=== PATIENT | female | born 1940 | race Caucasian/White ===

== ENCOUNTER → 2016-07-06 | Outpatient (CLI) | payer BC ==
[~2016-07-06] MED LIST: ASPI-589 PO; HYDR25TA5 PO; LISI10TA PO; MISCTAB78 PO; NEPA0.6D OPR; OMEGCAP2 PO; PRED1SUS3 OPR; SIMV-151 PO
[2016-07-06 12:45] LABS: BASO % 0.5 %; BASO ABS # 0.04 K/uL (0-0.2); COMPLETE YES; EOS % 6.4 %; HEMATOCRIT 41.6 % (37-47); IG% 0.1 %; LYMPH % 29.3 %; LYMPH ABS # 2.58 K/uL (1.2-3.4); MEAN CELL VOLUME 89.3 fL (80-100); MEAN CORPUSCULAR HEMOGLOBIN 30.9 pg (25-34); MEAN CORPUSCULAR HGB CONC 34.6 g/dl (32-36); MEAN PLATELET VOLUME 12.7 fL (7.4-10.4); MONO % 9.6 %; NEUT % 54.1 %; PLATELET COUNT 290 K/uL (130-400); RED BLOOD COUNT 4.66 M/uL (4.2-5.4); WHITE BLOOD COUNT 8.81 K/uL (4.8-10.8)
[2016-07-06 13:02] LABS: ESTIMATED AVERAGE GLUCOSE 120 mg/dl; HA1C FLAG Normal (Normal)
[2016-07-06 13:05] LABS: ALT/SGPT 30 U/L (12-78); AST/SGOT 21 U/L (15-37); BLOOD UREA NITROGEN 19 mg/dl (7-18); BUN/CREATININE RATIO 17.3 (10-20); CALCIUM 9.2 mg/dl (8.5-10.1); CARBON DIOXIDE 31 mmol/L (21-32); CHLORIDE 101 mmol/L (98-107); GLUCOSE 112 mg/dl (70-99); HDL CHOLESTEROL 68 mg/dl; MAGNESIUM 1.8 mg/dl (1.8-2.4); POTASSIUM 3.8 mmol/L (3.5-5.1); SODIUM 140 mmol/L (136-145); TRIGLYCERIDES 109 mg/dl (0-150); VERY LOW DENSITY LIPOPROT CALC 22 mg/dl
[2016-07-06 13:14] LABS: ALB/GLOB RATIO 1.1 (0.9-2); ALKALINE PHOSPHATASE 76 U/L (45-117); CHOLESTEROL 153 mg/dl (0-200); CHOLESTEROL/HDL RATIO 2.3
== END | disposition home or self-care (01) ==
LOC: C.LABSPEC 12:23
PROVIDERS: ATTEND Internal Medicine
DX: I10 Essential (primary) hypertension (principal); R73.9 Hyperglycemia, unspecified; E78.5 Hyperlipidemia, unspecified; R00.2 Palpitations

== ENCOUNTER → 2016-07-11 | Outpatient (CLI) | payer BC | END | disposition home or self-care (01) | LOC: C.LABSPEC 12:28 | PROVIDERS: ATTEND Internal Medicine | DX: Z12.11 Encounter for screening for malignant neoplasm of colon (principal) ==

== ENCOUNTER → 2016-11-15 | Outpatient (CLI) | payer BC ==
--- NOTE | 2016-11-16 12:30 | MAMMOGRAPHY REPORT ---
BILATERAL DIGITAL SCREENING MAMMOGRAM WITH CAD: 11/15/2016 CLINICAL HISTORY: Routine screening. TECHNIQUE: Current study was also evaluated with a Computer Aided Detection (CAD) system. Bilateral CC and MLO views were obtained. COMPARISON: Comparison is made to exams dated: 10/14/2015 mammogram, 10/13/2014 mammogram, 10/14/2013 m ammogram, 10/09/2012 mammogram, 09/18/2011 mammogram, and 09/12/2010 mammogram - [facility] nter. BREAST COMPOSITION: There are scattered areas of fibroglandular density in both breasts. FINDINGS: No suspicious masses, calcifications, or areas of architectural distortion are noted in ei ther breast. There has been no significant interval change compared to prior exams. Benign intramamm blair lymph nodes are again seen within bilateral upper outer quadrants. 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 IMPRESSION: ACR BI-RADS CATEGORY 2: BENIGN There is no mammographic evidence of malignancy. A 1 year screening mammogram is recommended. The pa tient will receive written notification of the results. Approximately 10% of breast cancers are not detected with mammography. A negative mammographic report should not delay biopsy if a clinically suggestive mass is present. Sun Shahid M.D. /:11/15/2016 15:00:07 [employer]: Carleen MENARD)(Dave), [facility] letter sent: Normal 1/2 BI-RADS Code: ACR BI-RADS Category 2: Benign
== END | disposition home or self-care (01) ==
LOC: C.MAMM 14:14
PROVIDERS: ATTEND Internal Medicine
DX: Z12.31 Encounter for screening mammogram for malignant neoplasm of breast (principal)

== ENCOUNTER → 2017-01-24 | Outpatient (CLI) | payer BC ==
[2017-01-24 13:43] LABS: ESTIMATED AVERAGE GLUCOSE 128 mg/dl; HA1C FLAG Normal (Normal)
[2017-01-24 14:09] LABS: BLOOD UREA NITROGEN 16 mg/dl (7-18); BUN/CREATININE RATIO 14.5 (10-20); CALCIUM 9.3 mg/dl (8.5-10.1); CARBON DIOXIDE 35 mmol/L (21-32); CHLORIDE 94 mmol/L (98-107); GLUCOSE 123 mg/dl (70-99); POTASSIUM 2.7 mmol/L (3.5-5.1); SODIUM 135 mmol/L (136-145)
[2017-01-24 14:12] LABS: CHOLESTEROL 133 mg/dl (0-200); HDL CHOLESTEROL 68 mg/dl; TRIGLYCERIDES 88 mg/dl (0-150); VERY LOW DENSITY LIPOPROT CALC 18 mg/dl
== END | disposition home or self-care (01) ==
LOC: C.LABSPEC 12:44
PROVIDERS: ATTEND Internal Medicine
DX: R73.9 Hyperglycemia, unspecified (principal); I10 Essential (primary) hypertension; E78.5 Hyperlipidemia, unspecified

== ENCOUNTER → 2017-01-28 | Outpatient (CLI) | payer BC ==
[2017-01-28 13:49] LABS: BLOOD UREA NITROGEN 12 mg/dl (7-18); BUN/CREATININE RATIO 11.5 (10-20); CALCIUM 9.6 mg/dl (8.5-10.1); CARBON DIOXIDE 27 mmol/L (21-32); CHLORIDE 102 mmol/L (98-107); GLUCOSE 117 mg/dl (70-99); POTASSIUM 4.7 mmol/L (3.5-5.1); SODIUM 135 mmol/L (136-145)
== END | disposition home or self-care (01) ==
LOC: C.LABSPEC 12:46
PROVIDERS: ATTEND Internal Medicine
DX: E87.6 Hypokalemia (principal)

== ENCOUNTER → 2017-05-31 | Outpatient (CLI) | payer BC ==
[2017-05-31 14:38] LABS: ALBUMIN 3.7 gm/dl (3.4-5.0); ALT/SGPT 29 U/L (12-78); AST/SGOT 22 U/L (15-37); BLOOD UREA NITROGEN 17 mg/dl (7-18); CALCIUM 9.4 mg/dl (8.5-10.1); CARBON DIOXIDE 29 mmol/L (21-32); CHOLESTEROL 180 mg/dl (0-200); CREATININE 0.97 mg/dl (0.60-1.20); GLUCOSE 123 mg/dl (70-99); POTASSIUM 3.5 mmol/L (3.5-5.1); SODIUM 139 mmol/L (136-145)
[2017-05-31 14:41] LABS: ALKALINE PHOSPHATASE 73 U/L (45-117); LDL CHOLESTEROL (DIRECT) 100 mg/dl; TOTAL PROTEIN 7.3 gm/dl (6.4-8.2)
== END | disposition home or self-care (01) ==
LOC: C.LABSPEC 12:17
PROVIDERS: ATTEND Internal Medicine
DX: I10 Essential (primary) hypertension (principal); E78.5 Hyperlipidemia, unspecified; R73.9 Hyperglycemia, unspecified

== ENCOUNTER → 2017-09-10 | Outpatient (CLI) | payer BC ==
--- NOTE | 2017-09-10 15:09 | DIAGNOSTIC IMAGING REPORT ---
L SHOULDER MIN 2 VIEWS ROUTINE CLINICAL HISTORY: Fall. Left shoulder pain. COMPARISON: Left shoulder radiographs December 09, 2007. FINDINGS: Note is made of an acute nondisplaced oblique fracture of the left humeral neck that extends into the left humeral head and involves the greater tuberosity. Severe osteoarthrosis of the left glenohumeral joint is noted. Alignment of the left acromioclavicular and glenohumeral joints is anatomic. IMPRESSION: 1. Acute nondisplaced left humeral neck fracture that extends into the humeral head and involves the greater tuberosity. 2. Severe osteoarthritis of the left glenohumeral joint. Electronically signed by: Gino Barrera M.D. 09/10/2017 3:08 PM Dictated Date/Time: 09/10/2017 3:06 PM
== END | disposition home or self-care (01) ==
LOC: C.RAD 14:36
PROVIDERS: ATTEND Internal Medicine
DX: S42.255A Nondisplaced fracture of greater tuberosity of left humerus, initial encounter for closed fracture (principal); S42.295A Other nondisplaced fracture of upper end of left humerus, initial encounter for closed fracture; S49.92XA Unspecified injury of left shoulder and upper arm, initial encounter; M19.012 Primary osteoarthritis, left shoulder; W19.XXXA Unspecified fall, initial encounter

== ENCOUNTER → 2017-12-16 | Outpatient (CLI) | payer BC ==
--- NOTE | 2017-12-16 11:58 | DIAGNOSTIC IMAGING REPORT ---
CHEST 2 VIEWS ROUTINE HISTORY: 77 years-old Female COUGH acute cough with recent travel COMPARISON: None available TECHNIQUE: PA and lateral views of the chest FINDINGS: Cardiac mediastinal and hilar silhouettes are within normal limits. Mild right hemidiaphragmatic elevation. Linear subsegmental opacity of the inferior segment lingular suggests atelectasis/scarring. There is no pneumothorax, pleural effusion or overt pulmonary edema. The bones of the chest appear grossly intact. There are degenerative changes of the shoulders and spine. Surgical clips of the upper abdomen suggest prior cholecystectomy. IMPRESSION: 1. No acute process. 2. Linear subsegmental lingular opacities suggest atelectasis/scarring. The above report was generated using voice recognition software. It may contain grammatical, syntax or spelling errors. Electronically signed by: Héctor To M.D. 12/16/2017 11:57 AM Dictated Date/Time: 12/16/2017 11:55 AM
== END | disposition home or self-care (01) ==
LOC: C.RAD 11:25
PROVIDERS: ATTEND Internal Medicine
DX: R05 Cough (principal); R91.8 Other nonspecific abnormal finding of lung field

== ENCOUNTER 2021-12-03 18:42 | Inpatient (IN) ==
--- NOTE | 2021-12-03 19:04 | Emergency Department Note ---
Impression & Plan Cerebrovascular accident, Aphasia ED Provider Note Provider: José Antonio Diaz MD DATE OF SERVICE: 12/03/2021 CHIEF COMPLAINT: Confusion, speech issues HISTORY OF PRESENT ILLNESS: Patient is a 81-year-old female history of hypertension and by report of daughter bradycardia presenting via private vehicle today after being found by her daughter around 6:00pm confused. Daughter states she had talked to her mother on the phone around 430pm this afternoon and she seemed fine. Came home at 6 PM and found the patient to be confused and not remembering who she was not addressing her by her van cash's name or her other daughter's name. Patient did not seem to have any significant facial droop or slurred speech. Patient otherwise was acting normal again at 430pm. Patient is on aspirin. Asking the patient herself, she is unable to tell me what year it is and can regulates and says random words. She is unable to identify a pen or a watch for me and just says random words. She does follow simple commands however denies change in sensation to the face or extremities. No trauma is reported. Daughter reports she was able to ambulate to the car. REVIEW OF SYSTEMS: A total of 10 review of systems was obtained and negative except as stated above in the HPI. PAST MEDICAL HISTORY: As noted above MEDICATIONS: Reviewed home medications includes aspirin SOCIAL HISTORY: No smoking history reported PHYSICAL EXAM: GENERAL: alert in no acute distress on stretcher difficulty answering orientation questions. Head: normocephalic and atraumatic EYES: No injection, discharge or icterus. PERRL, EOMI. NECK: Trachea midline. Supple. ENT: Mucous membranes pink and moist. Pharynx without erythema or exudate. LUNGS: Airway patent. No retractions. Breath sounds clear with good air entry bilaterally. HEART: Regular rate and rhythm. No chest wall tenderness ABDOMEN: Soft and non-tender, without guarding or rebound. SKIN: Acyanotic, warm, dry, without rashes EXTREMITIES: Without swelling, tenderness or deformity NEUROLOGICAL: No focal deficits. No facial droop or slurred speech. Tongue midline. Significant aphasia but not dysarthric. Normal strength and tone in the extremities. Sensation to gross touch normal. EK bpm sinus rhythm first-degree AV block with PVC noted. No acute ST segment elevation or depression noted. QTc 492. CONTINUOUS CARDIAC MONITORING: was ordered and showed a heart rate of 60s-70s bpm in sinus rhythm first-degree AV block occasional PVCs Patient's laboratory studies and imaging reviewed. Differential includes Infection, dehydration, metabolic abnormality, hypo/hyperglycemia, electrolyte disturbance, anemia, hypoxia, cardiac sources, intracerebral event, toxicologic, neurologic, as well as other pathologies. IMPRESSION/MEDICAL DECISION MAKING: Patient with appears to be a sudden change in mentation with confusion and some aphasia. No trauma reported or recent illness otherwise. Afebrile upon arrival. Able to move her extremities well but again answering orientation questions is difficult. Made a stroke alert and sent for CT scans. Not on high risk anticoagulants but is on aspirin. Last known well talking with the daughter on the phone was around 4:30 PM this afternoon. Discussed with stroke neurology at [facility] who evaluate the patient as well. They and myself discussed risk and benefit with the patient and daughter at bedside. Stroke neurologist recommended giving the medication for thrombolytics given the disabling symptoms after personally reviewing the CT and knowing of the CT report. Given concern for possible stroke risk and benefits (including bleeding) proceeded with thrombolytic therapy and bedside discussion predominantly with the daughter as the patient is hard to have a conversation with given her deficits. No evidence of large vessel occlusion on imaging. CT of the head without acute bleed. Basic blood work was obtained without severe abnormalities noted. Will need close monitoring postthrombolytic therapy and the hospitalist to be contacted for ICU care. Given magnesium and IV fluids per stroke direction from [facility]. Patient without s ignificant clinical worsening while here but no significant improvement noted. Blood pressure bit elevated and given some labetalol. To ICU. DIAGNOSIS: Stroke, thrombolytic therapy, aphasia DISPOSITION: Hospitalist will evaluate Patient was agreeable with this plan. Critical Care I have personally spent 34 minutes of critical care time in the direct management of this patient. This includes bedside care, interpretation of diagnostic studies, and testing, discussion with consultants, patient, and family members, and other required patient management activities. These 34 minutes is in excess of all separately billable procedures. Past Med/Surg History Social History Smoking Status: Never smoker Hx Alcohol Use: No Hx Substance Use: No Preferred Language: Dominican Communication Ability: Impaired Communication Ability Comment: Aphasia at this time Engineering Technical Analyst Required: No Beliefs That Will Affect Care: None Current Living Situation: Alone Current Living Situation Comment: pt lives in apartment at daughter's home Other Information That Helps Us Care for You: No Feels Safe at Home: Yes Safety Concerns: Feels Safe At This Time Assistive Devices: Glasses Allergies Allergies Allergy/AdvReac Type Severity Reaction Status Date / Time methylprednisolone Allergy Intermediate USED WHEN Verified 12/03/21 19:24 HAD POSION RAZ AND BROKE OUT IN HIVES Home Meds Home Medications Medication Instructions Recorded Confirmed ascorbic acid (vitamin C) 1,000 mg 1 g PO DAILY 12/03/21 12/03/21 tablet (Vitamin C) aspirin 325 mg tablet 162.5 mg PO DAILY 12/03/21 12/03/21 carboxymethylcellulose sodium 0.5 1 drp ophthalmic (eye) BID PRN Dry 12/03/21 12/03/21 % eye drops (Refresh Tears) Eyes cholecalciferol (vitamin D3) 25 25 mcg PO DAILY 12/03/21 12/03/21 mcg (1,000 unit) capsule (Vitamin D3) glucosamine 750 [id number] 1 tab PO BID 12/03/21 12/03/21 no1 644 mg-C 30 mg-omayra 1 mg tablet (Osteo Bi-Flex Triple Strength) hydrochlorothiazide 25 mg tablet 25 mg PO DAILY 12/03/21 12/03/21 latanoprost 0.005 % eye drops 1 drp ophthalmic (eye) DAILY 12/03/21 12/03/21 losartan 50 mg tablet 50 mg PO DAILY 12/03/21 12/03/21 magnesium oxide 400 mg PO DAILY 12/03/21 12/03/21 metoprolol tartrate 25 mg tablet 12.5 mg PO BID 12/03/21 12/03/21 omega-3 fatty acids 1,000 mg 1,000 mg PO DAILY 12/03/21 12/03/21 capsule potassium chloride 10 mEq 20 meq PO BID 12/03/21 12/03/21 capsule,extended release simvastatin 20 mg tablet 20 mg PO DAILY 12/03/21 12/03/21 Results & Data (ED) Vital Signs Vital Signs - 24 hr 12/03/21 18:47 12/03/21 19:12 12/03/21 19:13 Temperature 36.4 C L Temperature Source Temporal Artery Scan Pulse Rate 73 Pulse Rate [Finger] 70 Pulse Rate from SpO2 Sensor Pulse Rhythm Regular Pulse Strength Normal Respiratory Rate 16 23 Respiratory Depth Normal Blood Pressure 197/92 H Blood Pressure [Right Arm] 179/85 H Blood Pressure Mean 127 Blood Pressure Mean [Right Arm] 116 Pulse Oximetry 99 98 98 Oxygen Delivery Method Room Air Room Air Room Air Sepsis Recent Fever Within 48 Hours No Sepsis New/Unexplained Change in Mental Status N/A Sepsis Action Taken by Nursing No Action Required 12/03/21 19:17 12/03/21 19:32 12/03/21 19:44 Temperature Temperature Source Pulse Rate Pulse Rate [Finger] 72 68 70 Pulse Rate from SpO2 Sensor Pulse Rhythm Pulse Strength Respiratory Rate 20 18 18 Respiratory Depth Blood Pressure Blood Pressure [Right Arm] 166/88 H 171/77 H 160/86 H Blood Pressure Mean Blood Pressure Mean [Right Arm] 114 108 110 Pulse Oximetry 97 98 99 Oxygen Delivery Method Room Air Room Air Room Air Sepsis Recent Fever Within 48 Hours Sepsis New/Unexplained Change in Mental Status Sepsis Action Taken by Nursing 12/03/21 20:00 12/03/21 20:15 12/03/21 20:30 Temperature Temperature Source Pulse Rate Pulse Rate [Finger] 67 67 70 Pulse Rate from SpO2 Sensor Pulse Rhythm Pulse Strength Respiratory Rate 18 18 16 Respiratory Depth Blood Pressure Blood Pressure [Right Arm] 142/93 H 167/78 H 173/79 H Blood Pressure Mean Blood Pressure Mean [Right Arm] 109 107 110 Pulse Oximetry 97 97 97 Oxygen Delivery Method Room Air Room Air Room Air Sepsis Recent Fever Within 48 Hours Sepsis New/Unexplained Change in Mental Status Sepsis Action Taken by Nursing 12/03/21 20:45 12/03/21 21:00 12/03/21 21:15 Temperature Temperature Source Pulse Rate Pulse Rate [Finger] 68 69 68 Pulse Rate from SpO2 Sensor Pulse Rhythm Pulse Strength Respiratory Rate 18 16 18 Respiratory Depth Blood Pressure Blood Pressure [Right Arm] 170/99 H 179/105 H 155/75 H Blood Pressure Mean Blood Pressure Mean [Right Arm] 122 129 101 Pulse Oximetry 97 99 97 Oxygen Delivery Method Room Air Room Air Room Air Sepsis Recent Fever Within 48 Hours Sepsis New/Unexplained Change in Mental Status Sepsis Action Taken by Nursing 12/03/21 21:00 12/03/21 21:01 12/03/21 21:01 Temperature Temperature Source Pulse Rate 70 67 Pulse Rate [Finger] Pulse Rate from SpO2 Sensor 66 68 Pulse Rhythm Pulse Strength Respiratory Rate 19 15 Respiratory Depth Blood Pressure 179/105 H Blood Pressure [Right Arm] Blood Pressure Mean 129 Blood Pressure Mean [Right Arm] Pulse Oximetry 98 98 Oxygen Delivery Method Sepsis Recent Fever Within 48 Hours Sepsis New/Unexplained Change in Mental Status Sepsis Action Taken by Nursing 12/03/21 21:10 12/03/21 21:16 12/03/21 21:16 Temperature Temperature Source Pulse Rate 67 68 Pulse Rate [Finger] Pulse Rate from SpO2 Sensor 67 69 Pulse Rhythm Pulse Strength Respiratory Rate 17 17 Respiratory Depth Blood Pressure 155/75 H Blood Pressure [Right Arm] Blood Pressure Mean 101 Blood Pressure Mean [Right Arm] Pulse Oximetry 95 97 Oxygen Delivery Method Sepsis Recent Fever Within 48 Hours Sepsis New/Unexplained Change in Mental Status Sepsis Action Taken by Nursing Laboratory Data Result diagrams: 12/03/21 19:00 12/03/21 23:00 Lab Results 12/03/21 12/03/21 12/03/21 Range/Units 18:55 19:00 19:00 WBC 10.01 (4.8-10.8) K/ul RBC 4.33 (3.93-5.22) M/uL Hgb 13.4 (12.0-16.0) g/dl Hct 40.0 (34.1-44.9) % MCV 92.4 (80.0-100.0) fL MCH 30.9 (25.0-34.0) pg MCHC 33.5 (32.0-36.0) g/dL RDW Std Deviation 42.1 (36.4-46.3) fL RDW Coeff of Ralph 12.4 (11.5-14.5) % Plt Count 306 (130-400) K/uL MPV 12.3 (9.4-12.3) fL Immature Gran % (Auto) 0.3 % Neut % (Auto) 54.5 % Lymph % (Auto) 34.7 % Cassia % (Auto) 6.8 % Eos % (Auto) 2.9 % Baso % (Auto) 0.8 % Neut # (Auto) 5.46 (1.4-6.5) K/uL Lymph # (Auto) 3.47 H (1.2-3.4) K/uL Cassia # (Auto) 0.68 (0.24-0.82) K/uL Eos # (Auto) 0.29 (0-0.50) K/uL Baso # (Auto) 0.08 (0-0.2) K/uL Immature Gran # (Auto) 0.03 H (0.00-0.02) K/uL PT Cancelled INR Cancelled APTT Cancelled PTT Ratio Cancelled Sodium (136-145) mmol/L Potassium (3.5-5.1) mmol/L Chloride (98-107) mmol/L Carbon Dioxide (21-32) mmol/L Anion Gap (3-11) BUN (6-23) mg/dl Creatinine (0.6-1.2) mg/dl Est Cr Clr Drug Dosing Est GFR ( Amer) ml/min Est GFR (Non-Af Amer) ml/min BUN/Creatinine Ratio (10-20) Glucose (70-99(Fasting)) mg/dl POC Glucose 125 H (70-99) mg/dl Calcium (8.5-10.1) mg/dl Magnesium (1.7-2.4) mg/dl Total Bilirubin (0.2-1.0) mg/dl AST (13-39) U/L ALT (7-52) U/L Alkaline Phosphatase (34-104) U/L Troponin I High Sens (0-14) pg/ml Total Protein (6.0-8.3) gm/dl Albumin (3.4-5.0) gm/dl Globulin (2.5-4.0) gm/dl Albumin/Globulin Ratio (0.9-2) Urine Color Urine Appearance (Clear) Urine pH (4.5-7.5) Ur Specific Boomer (1.000-1.030) Urine Protein (Negative) Urine Glucose (UA) (Negative) Urine Ketones (Negative) Urine Blood (Negative) Urine Nitrite (Negative) Urine Bilirubin (Negative) Urine Urobilinogen (Negative) Ur Leukocyte Esterase (Negative) Urine WBC (Auto) (0-5) /hpf Urine RBC (Auto) (0-4) /hpf U Hyaline Cast (Auto) (0-5) /lpf U Epithel Cells (Auto) (0-5) /lpf Urine Bacteria (Auto) (Negative) SARS-CoV-2, RNA, NAAT (NEGATIVE) 12/03/21 12/03/21 12/03/21 Range/Units 19:00 19:15 19:37 WBC (4.8-10.8) K/ul RBC (3.93-5.22) M/uL Hgb (12.0-16.0) g/dl Hct (34.1-44.9) % MCV (80.0-100.0) fL MCH (25.0-34.0) pg MCHC (32.0-36.0) g/dL RDW Std Deviation (36.4-46.3) fL RDW Coeff of Ralph (11.5-14.5) % Plt Count (130-400) K/uL MPV (9.4-12.3) fL Immature Gran % (Auto) % Neut % (Auto) % Lymph % (Auto) % Cassia % (Auto) % Eos % (Auto) % Baso % (Auto) % Neut # (Auto) (1.4-6.5) K/uL Lymph # (Auto) (1.2-3.4) K/uL Cassia # (Auto) (0.24-0.82) K/uL Eos # (Auto) (0-0.50) K/uL Baso # (Auto) (0-0.2) K/uL Immature Gran # (Auto) (0.00-0.02) K/uL PT Cancelled INR Cancelled APTT Cancelled PTT Ratio Cancelled Sodium 138 (136-145) mmol/L Potassium 3.6 (3.5-5.1) mmol/L Chloride 102 (98-107) mmol/L Carbon Dioxide 28 (21-32) mmol/L Anion Gap 8 (3-11) BUN 29 H (6-23) mg/dl Creatinine 1.20 (0.6-1.2) mg/dl Est Cr Clr Drug Dosing Not Reportable Est GFR ( Amer) 49.1 ml/min Est GFR (Non-Af Amer) 42.4 ml/min BUN/Creatinine Ratio 24.2 H (10-20) Glucose 146 H (70-99(Fasting)) mg/dl POC Glucose (70-99) mg/dl Calcium 9.4 (8.5-10.1) mg/dl Magnesium 2.1 (1.7-2.4) mg/dl Total Bilirubin 0.6 (0.2-1.0) mg/dl AST 16 (13-39) U/L ALT 11 (7-52) U/L Alkaline Phosphatase 71 (34-104) U/L Troponin I High Sens 10.0 (0-14) pg/ml Total Protein 7.5 (6.0-8.3) gm/dl Albumin 4.2 (3.4-5.0) gm/dl Globulin 3.3 (2.5-4.0) gm/dl Albumin/Globulin Ratio 1.3 (0.9-2) Urine Color Urine Appearance (Clear) Urine pH (4.5-7.5) Ur Specific Boomer (1.000-1.030) Urine Protein (Negative) Urine Glucose (UA) (Negative) Urine Ketones (Negative) Urine Blood (Negative) Urine Nitrite (Negative) Urine Bilirubin (Negative) Urine Urobilinogen (Negative) Ur Leukocyte Esterase (Negative) Urine WBC (Auto) (0-5) /hpf Urine RBC (Auto) (0-4) /hpf U Hyaline Cast (Auto) (0-5) /lpf U Epithel Cells (Auto) (0-5) /lpf Urine Bacteria (Auto) (Negative) SARS-CoV-2, RNA, NAAT NEGATIVE (NEGATIVE) 12/03/21 12/03/21 Range/Units 19:40 20:35 WBC (4.8-10.8) K/ul RBC (3.93-5.22) M/uL Hgb (12.0-16.0) g/dl Hct (34.1-44.9) % MCV (80.0-100.0) fL MCH (25.0-34.0) pg MCHC (32.0-36.0) g/dL RDW Std Deviation (36.4-46.3) fL RDW Coeff of Ralph (11.5-14.5) % Plt Count (130-400) K/uL MPV (9.4-12.3) fL Immature Gran % (Auto) % Neut % (Auto) % Lymph % (Auto) % Cassia % (Auto) % Eos % (Auto) % Baso % (Auto) % Neut # (Auto) (1.4-6.5) K/uL Lymph # (Auto) (1.2-3.4) K/uL Cassia # (Auto) (0.24-0.82) K/uL Eos # (Auto) (0-0.50) K/uL Baso # (Auto) (0-0.2) K/uL Immature Gran # (Auto) (0.00-0.02) K/uL PT 10.4 INR 1.0 APTT 23.4 PTT Ratio 0.9 Sodium (136-145) mmol/L Potassium (3.5-5.1) mmol/L Chloride (98-107) mmol/L Carbon Dioxide (21-32) mmol/L Anion Gap (3-11) BUN (6-23) mg/dl Creatinine (0.6-1.2) mg/dl Est Cr Clr Drug Dosing Est GFR ( Amer) ml/min Est GFR (Non-Af Amer) ml/min BUN/Creatinine Ratio (10-20) Glucose (70-99(Fasting)) mg/dl POC Glucose (70-99) mg/dl Calcium (8.5-10.1) mg/dl Magnesium (1.7-2.4) mg/dl Total Bilirubin (0.2-1.0) mg/dl AST (13-39) U/L ALT (7-52) U/L Alkaline Phosphatase (34-104) U/L Troponin I High Sens (0-14) pg/ml Total Protein (6.0-8.3) gm/dl Albumin (3.4-5.0) gm/dl Globulin (2.5-4.0) gm/dl Albumin/Globulin Ratio (0.9-2) Urine Color Yellow Urine Appearance Clear (Clear) Urine pH 5.0 (4.5-7.5) Ur Specific Boomer 1.040 H (1.000-1.030) Urine Protein Negative (Negative) Urine Glucose (UA) Negative (Negative) Urine Ketones Negative (Negative) Urine Blood 1+ H (Negative) Urine Nitrite Positive A (Negative) Urine Bilirubin Negative (Negative) Urine Urobilinogen Negative (Negative) Ur Leukocyte Esterase 1+ H (Negative) Urine WBC (Auto) 10-30 H (0-5) /hpf Urine RBC (Auto) 0-4 (0-4) /hpf U Hyaline Cast (Auto) 1-5 (0-5) /lpf U Epithel Cells (Auto) >30 H (0-5) /lpf Urine Bacteria (Auto) 3+ H (Negative) SARS-CoV-2, RNA, NAAT (NEGATIVE) Administered Medications Gadobutrol (Gadobutrol 30ml Vial) 10 ml IV ONCE ONE Stop: 12/04/21 00:00 Last Admin: 12/03/21 23:59 Dose: 10 ml Documented By: NATALIE Sodium Chloride (Nss 1000ml) 1,000 mls @ 80 mls/hr IV .[id number] ASHLEY Stop: 01/02/22 22:01 Last Admin: 12/03/21 22:35 Dose: 80 mls/hr Documented By: JOSE ANGEL Ceftriaxone Sodium 2,000 mg/ (Dextrose) 70 mls @ 140 mls/hr IV Q24H [facility]; Protocol Stop: 12/13/21 22:29 Last Infusion: 12/03/21 23:31 Dose: 0 mls/hr Documented By: JOSE ANGEL Admin: 12/03/21 22:32 Dose: 140 mls/hr Documented By: JOSE ANGEL Discontinued Medications Tenecteplase 25 mg/ Syringe 5 mls @ 60 mls/min IV NOW ONE; Protocol Stop: 12/03/21 19:41 Last Admin: 12/03/21 19:52 Dose: 60 mls/min Documented By: DB Co-signed By: LANNY Magnesium Sulfate/Dextrose (Magnesium Sulfate / D5w) 1 gm in 100 mls @ 200 mls/hr IV Q30M [facility] Stop: 12/03/21 20:36 Last Infusion: 12/03/21 21:08 Dose: 0 mls/hr Documented By: Admin: 12/03/21 20:26 Dose: 200 mls/hr Documented By: Infusion: 12/03/21 20:23 Dose: 200 mls/hr Documented By: Admin: 12/03/21 19:53 Dose: 200 mls/hr Documented By: DB Sodium Chloride (Nss 1000ml) 1,000 mls @ 999 mls/hr IV .Q1H1M ONE Stop: 12/03/21 20:38 Last Infusion: 12/03/21 21:22 Dose: 0 mls/hr Documented By: Admin: 12/03/21 19:53 Dose: 999 mls/hr Documented By: DB Ioversol (Optiray 320 125ml) 114 ml IV ONCE ONE Stop: 12/03/21 19:15 Last Admin: 12/03/21 19:14 Dose: 114 ml Documented By: RHD Labetalol HCl (Labetalol Hcl Iv 5 Mg/Ml 20ml) Confirm Administered Dose 5 mg IV .STK-MED ONE Stop: 12/03/21 19:49 Last Admin: 12/03/21 21:04 Dose: Not Given Documented By: DB Labetalol HCl (Labetalol Hcl Iv 5 Mg/Ml 20ml) 10 mg IV NOW STA Stop: 12/03/21 21:04 Last Admin: 12/03/21 21:05 Dose: 10 mg Documented By: DB Co-signed By: SHOSHANA Miscellaneous (Stat Iv) 1 each N/A NOW STA Stop: 12/03/21 19:31 Last Admin: 12/03/21 19:32 Dose: 1 each Documented By: DB Sodium Chloride (Sodium Chloride 0.9% 10ml Flush) 20 ml IV NOW STA Stop: 12/03/21 19:31 Last Admin: 12/03/21 19:53 Dose: 20 ml Documented By: DB Imaging Data Radiologist's Impression: Head CT 12/03/21 18:[address] OF THE BRAIN; CT ANGIOGRAM OF THE BRAIN; CT ANGIOGRAM OF THE NECK CLINICAL HISTORY: Strokelike symptoms. COMPARISON STUDY: No priors. TECHNIQUE: Unenhanced axial CT scan of the brain is performed. Subsequently, fo llowing the IV administration of 114 of Optiray 320, CT angiogram of the head and neck was performed from the aortic arch to the vertex. Images are reviewed in the axial, sagittal, and coronal planes. 3-D MIPS images are created and assessed. IV contrast was administered without complication. All measurements were calculated based on NASCET criteria. A dose lowering technique was utilized adhering to the principles of ALARA. CT DOSE: 1391.91 mGy.cm FINDINGS: Brain parenchyma: There is a subtle and approximately approximately 4 cm region with focal loss of powell-white matter differentiation in the left parieto-occip ital lobe, best seen on axial image #18. Right parieto-occipital encephalomalacia suggests a subacute to remote infarct. There is age-related involutional change noting mild subcortical and periventricular microangiopathic disease. There is no hemorrhage or mass effect. There is no evidence of enhan cing mass lesion on the angiogram phase images. The ventricles, sulci, and cisterns are prominent secondary to involutional change. No extra-axial fluid collection is seen. Thoracic aorta: Visualized portions of the thoracic aorta are normal in caliber. The aortic arch demonstrates standard 3-vessel anatomy. Right carotid arterial system: The right common carotid artery is widely patent, as are the right internal and external carotid artery. There is tortuosity of the distal ICA. Left carotid arterial system: The left common carotid artery is widely patent, as are the left internal and external carotid arteries. There is tortuosity of the distal ICA. Vertebral arteries: The vertebral arteries are widely patent bilaterally noting mild left-sided dominance. Subclavian arteries: Widely patent bilaterally. Intracranial vasculature: The [place] of [place] is developmentally complete. The internal carotid arteries are patent at the skull base, as are the anterior and middle cerebral arteries bilaterally. The vertebrobasilar system and posterior cerebral arteries are widely patent. There is mild dominance of the left vertebral artery. There is a large right posterior communicating artery and the right P1 segment is diminutive. There is no aneurysm, high-grade stenosis, or focal vessel cut off seen throughout the intracranial circulation. Jugular veins: Patent bilaterally. Dural sinuses: Patent. Upper chest: Mildly enlarged mediastinal lymph nodes measure up to 11 mm short axis. There is a 1.3 cm irregular nodular opacity at the left apex seen on image #97. A round 0.9 cm left upper lobe pulmonary nodule is seen on image #14. Upper lobe lung parenchyma is otherwise clear as imaged. Soft tissues: The visualized pharyngeal soft tissues are normal in appearance noting angiographic phase technique. The oropharyngeal airway appears widely patent. The thyroid gland is enlarged and heterogeneous. The salivary glands are normal in appearance. No cervical lymphadenopathy is seen. Skeletal structures: The skeletal structures are osteopenic. The calvarium appears intact. The cervical spine is maintained noting multilevel spondylosis. No lytic or blastic lesion is seen. Orbits: The bony orbits are intact. Orbital contents are normal as visualized noting bilateral ocular lens implants. Sinuses and mastoids: The paranasal sinuses are clear. The mastoid air cells are well pneumatized. IMPRESSION: 1. There is subtle loss of powell-white matter differentiation suggested in the l eft parieto-occipital region. This is suspicious for acute to subacute watershed ischemia. MRI would be confirmatory. 2. There is a subacute to chronic ischemia seen at the right parieto-occipital junction. Correlate with the patient's clinical history. This can also be any luated by MRI. 3. There is no hemorrhage or mass effect. 4. Unremarkable CT angiogram of the brain. 5. Unremarkable CT angiogram of the neck. 6. There is a 1.3 cm irregular nodular opacity at the left apex and a 9 mm round left upper lobe pulmonary nodule. These are pathologically indeterminant. Follow-up with a dedicated chest CT in one month's time is recommended for reassessment and full evaluation of the thorax. ACT 112: Positive. There are findings on this exam that require communication between the performing entity and the patient following Patient Test Result Information Act ([place] Act 112) guidelines. Electronically signed by: Honorio Riley M.D. 12/03/2021 7:41 PM Head CTA 12/03/21 18:[address] OF THE BRAIN; CT ANGIOGRAM OF THE BRAIN; CT ANGIOGRAM OF THE NECK CLINICAL HISTORY: Strokelike symptoms. COMPARISON STUDY: No priors. TECHNIQUE: Unenhanced axial CT scan of the brain is performed. Subsequently, following the IV administration of 114 of Optiray 320, CT angiogram of the head and neck was performed from the aortic arch to the vertex. Images are reviewed in the axial, sagittal, and coronal planes. 3-D MIPS images are created and assessed. IV contrast was administered without complication. All measurements we re calculated based on NASCET criteria. A dose lowering technique was utilized adhering to the principles of ALARA. CT DOSE: 1391.91 mGy.cm FINDINGS: Brain parenchyma: There is a subtle and approximately approximately 4 cm region with focal loss of powell-white matter differentiation in the left parieto- occipital lobe, best seen on axial image #18. Right parieto-occipital encephalomalacia suggests a subacute to remote infarct. There is age-related involutional change noting mild subcortical and periventricular microangiopathic disease. There is no hemorrhage or mass effect. There is no evidence of enhancing mass lesion on the angiogram phase images. The ventricles, sulci, and cisterns are prominent secondary to involutional change. No extra-axial fluid collection is seen. Thoracic aorta: Visualized portions of the thoracic aorta are normal in caliber. The aortic arch demonstrates standard 3-vessel anatomy. Right carotid arterial system: The right common carotid artery is widely patent, as are the right internal and external carotid artery. There is tortuosity of the distal ICA. Left carotid arterial system: The left common carotid artery is widely patent, as are the left internal and external carotid arteries. There is tortuosity of the distal ICA. Vertebral arteries: The vertebral arteries are widely patent bilaterally noting mild left-sided dominance. Subclavian arteries: Widely patent bilaterally. Intracranial vasculature: The [place] of [place] is developmentally complete. The internal carotid arteries are patent at the skull base, as are the anterior and middle cerebral arteries bilaterally. The vertebrobasilar system and posterior cerebral arteries are widely patent. There is mild dominance of the left vertebral artery. There is a large right posterior communicating artery and the right P1 segment is diminutive. There is no aneurysm, high-grade stenosis, or focal vessel cut off seen throughout the intracranial circulation. Jugular veins: Patent bilaterally. Dural sinuses: Patent. Upper chest: Mildly enlarged mediastinal lymph nodes measure up to 11 mm short axis. There is a 1.3 cm irregular nodular opacity at the left apex seen on image #97. A round 0.9 cm left upper lobe pulmonary nodule is seen on image #14. Upper lobe lung parenchyma is otherwise clear as imaged. Soft tissues: The visualized pharyngeal soft tissues are normal in appearance noting angiographic phase technique. The oropharyngeal airway appears widely patent. The thyroid gland is enlarged and heterogeneous. The salivary glands are normal in appearance. No cervical lymphadenopathy is seen. Skeletal structures: The skeletal structures are osteopenic. The calvarium appears intact. The cervical spine is maintained noting multilevel spondylosis. No lytic or blastic lesion is seen. Orbits: The bony orbits are intact. Orbital contents are normal as visualized noting bilateral ocular lens implants. Sinuses and mastoids: The paranasal sinuses are clear. The mastoid air cells are well pneumatized. IMPRESSION: 1. There is subtle loss of powell-white matter differentiation suggested in the left parieto-occipital region. This is suspicious for acute to subacute watershed ischemia. MRI would be confirmatory. 2. There is a subacute to chronic ischemia seen at the right parieto-occipital junction. Correlate with the patient's clinical history. This can also be evaluated by MRI. 3. There is no hemorrhage or mass effect. 4. Unremarkable CT angiogram of the brain. 5. Unremarkable CT angiogram of the neck. 6. There is a 1.3 cm irregular nodular opacity at the left apex and a 9 mm round left upper lobe pulmonary nodule. These are pathologically indeterminant. Follow-up with a dedicated chest CT in one month's time is recommended for reassessment and full evaluation of the thorax. ACT 112: Positive. There are findings on this exam that require communication between the performing entity and the patient following Patient Test Result Information Act ([place] Act 112) guidelines. Electronically signed by: Honorio Riley M.D. 12/03/2021 7:41 PM Neck CTA 12/03/21 18:[address] OF THE BRAIN; CT ANGIOGRAM OF THE BRAIN; CT ANGIOGRAM OF THE NECK CLINICAL HISTORY: Strokelike symptoms. COMPARISON STUDY: No priors. TECHNIQUE: Unenhanced axial CT scan of the brain is performed. Subsequently, following the IV administration of 114 of Optiray 320, CT angiogram of the head and neck was performed from the aortic arch to the vertex. Images are reviewed in the axial, sagittal, and coronal planes. 3-D MIPS images are created and assessed. IV contrast was administered without complication. All measurements were calculated based on NASCET criteria. A dose lowering technique was utilized adhering to the principles of ALARA. CT DOSE: 1391.91 mGy.cm FINDINGS: Brain parenchyma: There is a subtle and approximately approximately 4 cm region with focal loss of powell-white matter differentiation in the left parieto- occipital lobe, best seen on axial image #18. Right parieto-occipital encephalomalacia suggests a subacute to remote infarct. There is age-related involutional change noting mild subcortical and periventricular microangiopathic disease. There is no hemorrhage or mass effect. There is no evidence of enhancing mass lesion on the angiogram phase images. The ventricles, sulci, and cisterns are prominent secondary to involutional change. No extra-axial fluid collection is seen. Thoracic aorta: Visualized portions of the thoracic aorta are normal in caliber. The aortic arch demonstrates standard 3-vessel anatomy. Right carotid arterial system: The right common carotid artery is widely patent, as are the right internal and external carotid artery. There is tortuosity of the distal ICA. Left carotid arterial system: The left common carotid artery is widely patent, as are the left internal and external carotid arteries. There is tortuosity of the distal ICA. Vertebral arteries: The vertebral arteries are widely patent bilaterally noting mild left-sided dominance. Subclavian arteries: Widely patent bilaterally. Intracranial vasculature: The [place] of [place] is developmentally complete. The internal carotid arteries are patent at the skull base, as are the anterior and middle cerebral arteries bilaterally. The vertebrobasilar system and posterior cerebral arteries are widely patent. There is mild dominance of the left vertebral artery. There is a large right posterior communicating artery and the right P1 segment is diminutive. There is no aneurysm, high-grade stenosis, or focal vessel cut off seen throughout the intracranial circulation. Jugular veins: Patent bilaterally. Dural sinuses: Patent. Upper chest: Mildly enlarged mediastinal lymph nodes measure up to 11 mm short axis. There is a 1.3 cm irregular nodular opacity at the left apex seen on image #97. A round 0.9 cm left upper lobe pulmonary nodule is seen on image #14. Upper lobe lung parenchyma is otherwise clear as imaged. Soft tissues: The visualized pharyngeal soft tissues are normal in appearance noting angiographic phase technique. The oropharyngeal airway appears widely patent. The thyroid gland is enlarged and heterogeneous. The salivary glands are normal in appearance. No cervical lymphadenopathy is seen. Skeletal structures: The skeletal structures are osteopenic. The calvarium appears intact. The cervical spine is maintained noting multilevel spondylosis. No lytic or blastic lesion is seen. Orbits: The bony orbits are intact. Orbital contents are normal as visualized noting bilateral ocular lens implants. Sinuses and mastoids: The paranasal sinuses are clear. The mastoid air cells are well pneumatized. IMPRESSION: 1. There is subtle loss of powell-white matter differentiation suggested in the left parieto-occipital region. This is suspicious for acute to subacute watershed ischemia. MRI would be confirmatory. 2. There is a subacute to chronic ischemia seen at the right parieto-occipital junction. Correlate with the patient's clinical history. This can also be evaluated by MRI. 3. There is no hemorrhage or mass effect. 4. Unremarkable CT angiogram of the brain. 5. Unremarkable CT angiogram of the neck. 6. There is a 1.3 cm irregular nodular opacity at the left apex and a 9 mm round left upper lobe pulmonary nodule. These are pathologically indeterminant. Follow-up with a dedicated chest CT in one month's time is recommended for reassessment and full evaluation of the thorax. ACT 112: Positive. There are findings on this exam that require communication between the performing entity and the patient following Patient Test Result Information Act ([place] Act 112) guidelines. Electronically signed by: Honorio Riley M.D. 12/03/2021 7:41 PM Discharge Plan Visit Data Chief Complaint: Stroke/CVA Symptoms Stated Complaint: SLURRED SPEECH, CONFUSION ED Provider: José Antonio Diaz Discharge Problem: Cerebrovascular accident, Aphasia Patient Disposition: Admitted As Inpatient Discharge Instructions Interventions: ED Discharge Assessment Last Done: 12/03/21 21:53
[2021-12-03] MEDS ORDERED: OPTIRAY 320 125ml IV ONE (19:14)
[2021-12-03 19:22] LABS: Basophils # (auto) 0.08 K/uL (0-0.2); Basophils % (auto) 0.8 %; Eosinophils # (auto) 0.29 K/uL (0-0.50); Eosinophils % (auto) 2.9 %; Hemoglobin 13.4 g/dl (12.0-16.0); Immature Granulocytes # (auto) 0.03 K/uL (0.00-0.02); Immature Granulocytes % (auto) 0.3 %; Lymphocytes # (auto) 3.47 K/uL (1.2-3.4); Lymphocytes % (auto) 34.7 %; Mean Corpuscular Hemoglobin 30.9 pg (25.0-34.0); Mean Corpuscular Hgb Conc 33.5 g/dL (32.0-36.0); Mean Corpuscular Volume 92.4 fL (80.0-100.0); Mean Platelet Volume 12.3 fL (9.4-12.3); Monocytes # (auto) 0.68 K/uL (0.24-0.82); Monocytes % (auto) 6.8 %; Neutrophils # (auto) 5.46 K/uL (1.4-6.5); Neutrophils % (auto) 54.5 %; Platelet Count 306 K/uL (130-400); RDW Coefficient of Variation 12.4 % (11.5-14.5); RDW Standard Deviation 42.1 fL (36.4-46.3); Red Blood Count 4.33 M/uL (3.93-5.22); White Blood Count 10.01 K/ul (4.8-10.8)
[2021-12-03] MEDS ORDERED: STAT IV STA (19:30)
[2021-12-03] MEDS ORDERED: PHARMACIST DISCHARGE MED REC CONSULT PRN ×2 (19:30→22:02)
[2021-12-03] MEDS ORDERED: SODIUM CHLORIDE 0.9% 10ML FLUSH IV STA (19:30)
[2021-12-03] MEDS ORDERED: No Aspirin within 24hrs of THROMBOLYTIC-Stroke PO SCH (19:30)
[2021-12-03] MEDS ORDERED: SODIUM CHLORIDE 0.9% 1000ML 1,000 ML IV ONE (19:38)
[2021-12-03] MEDS ORDERED: TENECTEPLASE 25 MG in SYRINGE 0 ML IV ONE (19:40)
[2021-12-03 19:41] LABS: Alanine Aminotransferase 11 U/L (7-52); Albumin Globulin Ratio 1.3 (0.9-2); Albumin Level 4.2 gm/dl (3.4-5.0); Alkaline Phosphatase 71 U/L (34-104); Anion Gap 8 (3-11); Aspartate Aminotransferase 16 U/L (13-39); BUN Creatinine Ratio 24.2 (10-20); Bilirubin,Total 0.6 mg/dl (0.2-1.0); Blood Urea Nitrogen 29 mg/dl (6-23); Calcium 9.4 mg/dl (8.5-10.1); Carbon Dioxide 28 mmol/L (21-32); Chloride 102 mmol/L (98-107); Est GFR (African American) 49.1 ml/min; Est GFR (Non-African American) 42.4 ml/min; Globulin 3.3 gm/dl (2.5-4.0); Glucose 146 mg/dl (70-99(Fasting)); Magnesium 2.1 mg/dl (1.7-2.4); Potassium 3.6 mmol/L (3.5-5.1); Sodium 138 mmol/L (136-145); Total Protein 7.5 gm/dl (6.0-8.3)
--- NOTE | 2021-12-03 19:44 | CT Scan Report ---
UNENHANCED CT OF THE BRAIN; CT ANGIOGRAM OF THE BRAIN; CT ANGIOGRAM OF THE NECK CLINICAL HISTORY: Strokelike symptoms. COMPARISON STUDY: No priors. TECHNIQUE: Unenhanced axial CT scan of the brain is performed. Subsequently, following the IV adminis tration of 114 of Optiray 320, CT angiogram of the head and neck was performed from the aortic arch t o the vertex. Images are reviewed in the axial, sagittal, and coronal planes. 3-D MIPS images are cre ated and assessed. IV contrast was administered without complication. All measurements were calculate d based on NASCET criteria. A dose lowering technique was utilized adhering to the principles of ALA RA. CT DOSE: 1391.91 mGy.cm FINDINGS: Brain parenchyma: There is a subtle and approximately approximately 4 cm region with focal loss of gr ay-white matter differentiation in the left parieto-occipital lobe, best seen on axial image #18. Rig ht parieto-occipital encephalomalacia suggests a subacute to remote infarct. There is age-related inv olutional change noting mild subcortical and periventricular microangiopathic disease. There is no he morrhage or mass effect. There is no evidence of enhancing mass lesion on the angiogram phase images. The ventricles, sulci, and cisterns are prominent secondary to involutional change. No extra-axial fluid collection is seen. Thoracic aorta: Visualized portions of the thoracic aorta are normal in caliber. The aortic arch demo nstrates standard 3-vessel anatomy. Right carotid arterial system: The right common carotid artery is widely patent, as are the right int ernal and external carotid artery. There is tortuosity of the distal ICA. Left carotid arterial system: The left common carotid artery is widely patent, as are the left digital media intern al and external carotid arteries. There is tortuosity of the distal ICA. Vertebral arteries: The vertebral arteries are widely patent bilaterally noting mild left-sided domin ance. Subclavian arteries: Widely patent bilaterally. Intracranial vasculature: The [place] is developmentally complete. The internal carotid ru vee are patent at the skull base, as are the anterior and middle cerebral arteries bilaterally. The vertebrobasilar system and posterior cerebral arteries are widely patent. There is mild dominance of the left vertebral artery. There is a large right posterior communicating artery and the right P1 seg ment is diminutive. There is no aneurysm, high-grade stenosis, or focal vessel cut off seen throughou t the intracranial circulation. Jugular veins: Patent bilaterally. Dural sinuses: Patent. Upper chest: Mildly enlarged mediastinal lymph nodes measure up to 11 mm short axis. There is a 1.3 c m irregular nodular opacity at the left apex seen on image #97. A round 0.9 cm left upper lobe pulmon blair nodule is seen on image #14. Upper lobe lung parenchyma is otherwise clear as imaged. Soft tissues: The visualized pharyngeal soft tissues are normal in appearance noting angiographic pha se technique. The oropharyngeal airway appears widely patent. The thyroid gland is enlarged and heter ogeneous. The salivary glands are normal in appearance. No cervical lymphadenopathy is seen. Skeletal structures: The skeletal structures are osteopenic. The calvarium appears intact. The cervic al spine is maintained noting multilevel spondylosis. No lytic or blastic lesion is seen. Orbits: The bony orbits are intact. Orbital contents are normal as visualized noting bilateral ocular lens implants. Sinuses and mastoids: The paranasal sinuses are clear. The mastoid air cells are well pneumatized. IMPRESSION: 1. There is subtle loss of powell-white matter differentiation suggested in the left parieto-occipital region. This is suspicious for acute to subacute watershed ischemia. MRI would be confirmatory. 2. There is a subacute to chronic ischemia seen at the right parieto-occipital junction. Correlate wi th the patient's clinical history. This can also be evaluated by MRI. 3. There is no hemorrhage or mass effect. 4. Unremarkable CT angiogram of the brain. 5. Unremarkable CT angiogram of the neck. 6. There is a 1.3 cm irregular nodular opacity at the left apex and a 9 mm round left upper lobe pulm onary nodule. These are pathologically indeterminant. Follow-up with a dedicated chest CT in one yair h's time is recommended for reassessment and full evaluation of the thorax. ACT 112: Positive. There are findings on this exam that require communication between the performing entity and the patient following Patient Test Result Information Act ([place] Act 112) guidelines. Electronically signed by: Honorio Riley M.D. 12/03/2021 7:41 PM
[2021-12-03] MEDS ORDERED: LABETALOL HCL IV 5 MG/ML 20ML IV ONE (19:48)
[2021-12-03] MEDS: MAGNESIUM SULFATE / D5W 1 GM/100 ML BAG IV SCH ×2 (19:53→20:26)
[2021-12-03 20:07] LABS: Appearance Urine Clear (Clear); Bacteria Urine Automated 3+ (Negative); Bilirubin Urine Negative (Negative); Blood Urine 1+ (Negative); Color Urine Yellow; Epithelial Cell Urine Auto >30 /lpf (0-5); Glucose Urine UA Negative (Negative); Ketones Urine Negative (Negative); Leukocyte Esterase Urine 1+ (Negative); Nitrite Urine Positive (Negative); Protein Urine Negative (Negative); RBC Urine Automated 0-4 /hpf (0-4); Urobilinogen Urine Negative (Negative)
[2021-12-03 20:54] LABS: Partial Thromboplastin Ratio 0.9; Partial Thromboplastin Time 23.4 Seconds (21.0-31.0); Prothrombin Time 10.4 Seconds (9.0-12.0)
[2021-12-03] MEDS ORDERED: LABETALOL HCL IV 5 MG/ML 20ML IV STA (21:03)
[2021-12-03] MEDS ORDERED: SODIUM CHLORIDE 0.9% 1000ML 1,000 ML IV SCH (22:02)
[2021-12-03] MEDS ORDERED: ICU PROTOCOL FOR HYPERGLYCEMIA PRN (22:02)
[2021-12-03] MEDS ORDERED: STAT IV Infusion **Titration per Protocol STA (22:02)
[2021-12-03] MEDS ORDERED: niCARdipine 25 MG in SODIUM CHLORIDE 0.9% 240 ML IV SCH (22:15)
--- NOTE | 2021-12-03 22:15 | Critical Care Consultation ---
Date of Consultation December 03, 2021 Assessment & Plan (1) Cerebrovascular accident: Impression: 81-year-old female presents to the ICU following cerebrovascular accident in which the patient received thrombolytics and requiring 24-hour ICU monitoring per protocol. Neuro - [id number] female with acute mental status change and CT imaging with evidence of ischemia in the left parieto-occipital region. S/p TNKase at 1951 -NIH of 10 on arrival to ICU. -No evidence of LVO on CTA -MRI pending -Follow-up echo -24-hour post thrombolytic monitoring in ICU per protocol. Will obtain CT head after 24 hours -Neurology consult. Follow for recommendations for aspirin/Plavix Cardiac - HTNhold home dose oral agents for the time being as patient is n.p.o. -We will allow permissive hypertension with max SBP 180. IV prns as needed Respiratory - No history of pulmonary disease. Lungs clear to auscultation and no respiratory distress maintaining oxygen saturations on room air. Monitor with continuous pulse ox. GI - NPO. Failed bedside dysphagia test. Swallow study pending RENAL/LYTES - Creatinine within normal limits. No severe electrolyte abnormalities. Monitor routine BMPs and replete as indicated - Foleystrict I's and O's ENDO - No history of diabetes or thyroid disease. HEME - H&H stable. No signs of bleeding. Monitor routine CBC ID - No indication for infectious process at this time. Trend fever curve LINES/IV ACCESS - Peripheral IVs DVT PROPHYLAXIS - SCDs, no anticoagulation for 24 hours following TNKase administration Thank you for allowing us to participate in the care of this patient. Please refer to my attending physician's documentation for any further recommendations. (2) Aphasia: (3) Hypertension: History of Present Illness Attending Physician: Ivan Lora MD History of Present Illness Patient is a 81-year-old female with past medical history HTN who was noted to have acute mental status change this evening by her daughter. Last known normal was 430 this afternoon. Patient presented to the ICU and was noted to have confusion and aphasia. CT head showed subtle loss of powell-white matter in the left parieto-occipital region suspicious for ischemia. Patient was evaluated by [facility] [place] telestroke neurologist who advised use of thrombolytics. CTA head and neck were negative for large vessel occlusion. TNKase was administered at 1951. Patient now to undergo MRI and admitted to ICU for 24-hour monitoring following administration of thrombolytics. On arrival to the ICU the patient is somewhat confused on exam and mixes words. She experienced to have elements of expressive and receptive aphasia. She does not appear to have any hemiplegia/weakness, facial droop, and although she is confused she does not appear to have any slurring of her words. She does deny any dizziness, pain or headaches, shortness of breath, abdominal pain, nausea or vomiting, or chest pain. Patient to remain in ICU for further monitoring at this time. We will obtain CT at 24 hours post TNKase administration per protocol. Allergies Allergy/AdvReac Type Severity Reaction Status Date / Time methylprednisolone Allergy Intermediate USED WHEN Verified 12/03/21 19:24 HAD POSION RAZ AND BROKE OUT IN HIVES Home Medications Medication Instructions Recorded Confirmed Type ascorbic acid (vitamin C) 1,000 mg 1 g PO DAILY 12/03/21 12/03/21 History tablet (Vitamin C) aspirin 325 mg tablet 162.5 mg PO DAILY 12/03/21 12/03/21 History carboxymethylcellulose sodium 0.5 1 drp ophthalmic (eye) BID PRN Dry 12/03/21 12/03/21 History % eye drops (Refresh Tears) Eyes cholecalciferol (vitamin D3) 25 25 mcg PO DAILY 12/03/21 12/03/21 History mcg (1,000 unit) capsule (Vitamin D3) glucosamine 750 [id number] 1 tab PO BID 12/03/21 12/03/21 History no1 644 mg-C 30 mg-omayra 1 mg tablet (Osteo Bi-Flex Triple Strength) hydrochlorothiazide 25 mg tablet 25 mg PO DAILY 12/03/21 12/03/21 History latanoprost 0.005 % eye drops 1 drp ophthalmic (eye) DAILY 12/03/21 12/03/21 History losartan 50 mg tablet 50 mg PO DAILY 12/03/21 12/03/21 History magnesium oxide 400 mg PO DAILY 12/03/21 12/03/21 History metoprolol tartrate 25 mg tablet 12.5 mg PO BID 12/03/21 12/03/21 History omega-3 fatty acids 1,000 mg 1,000 mg PO DAILY 12/03/21 12/03/21 History capsule potassium chloride 10 mEq 20 meq PO BID 12/03/21 12/03/21 History capsule,extended release simvastatin 20 mg tablet 20 mg PO DAILY 12/03/21 12/03/21 History Patient History Social History Smoking Status: Never smoker Hx Alcohol Use: No Hx Substance Use: No Preferred Language: [place] Communication Ability: Impaired Communication Ability Comment: Aphasia at this time [employer] Required: No Beliefs That Will Affect Care: None Current Living Situation: Alone Current Living Situation Comment: pt lives in apartment at daughter's home Other Information That Helps Us Care for You: No Feels Safe at Home: Yes Safety Concerns: Feels Safe At This Time Assistive Devices: Glasses Review of Systems Review of Systems: Exam noted in HPI. Exam limited due to patient's aphasia Physical Exam Constitutional: comfortable and + overweight Eyes: PERRL, conjunctivae normal, anicteric sclerae ENMT: external ear and nose normal, oropharynx normal Neck: trachea midline, no thyromegaly Respiratory: normal respiratory effort, lungs clear to auscultation Cardiovascular: RRR, no murmur, no edema Heart Sounds: normal S1 and normal S2 Extremities: no edema Gastrointestinal (Abdomen): normal bowel sounds, soft, nontender, no hepatosplenomegaly Musculoskeletal: no cyanosis or clubbing, extremities motor strength 5/5 Skin: Maculopapular rash to the left lower extremity Neurologic: PERRLA, accommodation normal, no facial palsy, no dysarthria. Positive for expressive and receptive aphasia. Dysphagia present. No motor or sensory deficits. Unable to assess gait. Coordination appears to be intact. Psychiatric: Orientation: oriented to person; + not oriented to place and + not oriented to time Genitourinary: Indwelling Guerrero catheter present Results & Data Results & Data ([facility]) Vital Signs (Past 12 Hours) Vital Signs Temp Pulse Pulse Resp BP BP Pulse Ox 12/03/21 21:31 74 16 162/86 H 98 12/03/21 21:15 68 18 155/75 H 97 12/03/21 21:00 69 16 179/105 H 99 12/03/21 20:45 68 18 170/99 H 97 12/03/21 20:30 70 16 173/79 H 97 12/03/21 20:15 67 18 167/78 H 97 12/03/21 20:00 67 18 142/93 H 97 12/03/21 19:44 70 18 160/86 H 99 12/03/21 19:32 68 18 171/77 H 98 12/03/21 19:17 72 20 166/88 H 97 12/03/21 19:13 98 12/03/21 19:12 70 23 179/85 H 98 12/03/21 18:47 36.4 C L 73 16 197/92 H 99 O2 Del Method 12/03/21 21:31 Room Air 12/03/21 21:15 Room Air 12/03/21 21:00 Room Air 12/03/21 20:45 Room Air 12/03/21 20:30 Room Air 12/03/21 20:15 Room Air 12/03/21 20:00 Room Air 12/03/21 19:44 Room Air 12/03/21 19:32 Room Air 12/03/21 19:17 Room Air 12/03/21 19:13 Room Air 12/03/21 19:12 Room Air 12/03/21 18:47 Room Air Coding Level of Care Code 30434 Inpt Consult Level 4 Diagnoses Cerebrovascular accident I63.9 Aphasia R47.01 Hypertension I10
[2021-12-03] MEDS ORDERED: cefTRIAXone SODIUM 2,000 MG in DEXTROSE 5% 50 ML IV SCH (22:30)
[2021-12-03] MEDS ORDERED: ONDANSETRON INJ 2 MG/ML 2 ML VIAL ONE (23:15)
[2021-12-03] MEDS ORDERED: ONDANSETRON INJ 2 MG/ML 2 ML VIAL IV PRN (23:40)
[2021-12-03 23:42] LABS: Creatinine Clr Calc Pharmacy 49.3 ml/min; Est GFR (African American) 58.4 ml/min; Est GFR (Non-African American) 50.3 ml/min
[2021-12-03 23:56] LABS: Troponin I High Sensitivity 16.1 pg/ml (0-14)
[2021-12-03] MEDS ORDERED: GADOBUTROL 30ML VIAL IV ONE (23:59)
[2021-12-04] MEDS ORDERED: LABETALOL HCL IV 5 MG/ML 20ML IV STA (00:21)
[2021-12-04] MEDS ORDERED: LABETALOL HCL IV 5 MG/ML 20ML IV ONE (00:21)
[2021-12-04] MEDS ORDERED: TRANEXAMIC ACID / 0.7% NACL 1,000 MG/100 ML BAG IV STA (00:26)
--- NOTE | 2021-12-04 00:28 | Magnetic Resonance Report ---
MRI OF THE BRAIN COMBO CLINICAL HISTORY: Stroke status post TPA. COMPARISON STUDY: CT of the brain dated 12/03/2021. TECHNIQUE: MRI of the brain was performed utilizing various T1 and T2-weighted sequences in the axial , sagittal, and coronal planes. Contrast-enhanced sequences were acquired following the administratio n of 10 cc of Gadavist. FINDINGS: Brain parenchyma: There is a large parenchymal hematoma with surrounding edema centered in the left p arieto-occipital lobe at the site of previously suggested watershed infarct. This measures approximat ernesto 7 x 3 cm. There is subdural extension, with subdural hemorrhage seen along the left convexity. Th is measures up to 6 mm in maximum diameter and effaces the subjacent cortical sulci. There is mild le ft to right-sided midline shift which measures up to 4 mm. Right parieto-occipital encephalomalacia i s consistent with a remote infarct. Postcontrast enhancement within the subdural and parenchymal marcie trey suggests active extravasation. No enhancing mass lesion is seen. There may also be trace subara chnoid extension along the left sylvian fissure. There is age-related involutional change noting mild subcortical and periventricular microangiopathic disease. The cerebellar tonsils are normal in confi guration. There may also be subdural hemorrhage versus artifact at the skull base posterior to the cl ivus. Ventricles, sulci, and cisterns: Prominent secondary to involutional change. Pituitary and sella: Unremarkable. Intracranial vasculature: Normal flow voids are maintained at the skull base. Orbits: The bony orbits are grossly intact. Orbital contents are normal in appearance noting bilatera l ocular lens implants. Sinuses and mastoids: Clear. Calvarium: Unremarkable. Cervical cord: Partially visualized cervical spinal cord is normal in morphology and signal intensity . IMPRESSION: 1. There is a large hematoma centered in the left parieto-occipital region at the site of previously suggested watershed infarct indicating acute hemorrhagic transformation. 2. There is subdural extension, with a 6 mm subdural hemorrhage along the left convexity. 3. There is also likely trace subarachnoid extension along the left sylvian fissure. 4. There is associated mass effect with effacement of the left-sided cortical sulci and 4 mm of left to right midline shift. 5. Postcontrast enhancement within the parenchymal and subdural hemorrhages suggests active extravasa tion. 6. A chronic right-sided watershed infarct is noted. 7. There may also be subdural hemorrhage versus artifact at the skull base posterior to the clivus. T his could be further assessed with a repeat CT. Findings were communicated to Dr. Diaz in the emergency department at the time of examination ACT 112: Negative or not required by law. Electronically signed by: Honorio Riley M.D. 12/04/2021 12:26 AM
[2021-12-04] MEDS ORDERED: MANNITOL 25% 12.5 GM/50 ML VIAL IV STA ×2 (00:30→00:52)
[2021-12-04] MEDS ORDERED: 1.2 MICRON FILTER 1 EACH IV ONE (00:30)
[2021-12-04] MEDS ORDERED: MANNITOL 20% 100GM/500 ML BAG IV ONE (00:36)
[2021-12-04] MEDS ORDERED: dexAMETHasone 10 MG in SYRINGE 0 ML IV ONE (00:45)
[2021-12-04 00:52] LABS: Basophils # (auto) 0.04 K/uL (0-0.2); Basophils % (auto) 0.3 %; Eosinophils # (auto) 0.07 K/uL (0-0.50); Eosinophils % (auto) 0.6 %; Hemoglobin 11.2 g/dl (12.0-16.0); Immature Granulocytes # (auto) 0.05 K/uL (0.00-0.02); Immature Granulocytes % (auto) 0.4 %; Lymphocytes # (auto) 1.61 K/uL (1.2-3.4); Lymphocytes % (auto) 13.7 %; Mean Corpuscular Hgb Conc 33.9 g/dL (32.0-36.0); Mean Corpuscular Volume 91.4 fL (80.0-100.0); Mean Platelet Volume 12.2 fL (9.4-12.3); Monocytes # (auto) 0.85 K/uL (0.24-0.82); Monocytes % (auto) 7.2 %; Neutrophils # (auto) 9.16 K/uL (1.4-6.5); Neutrophils % (auto) 77.8 %; Platelet Count 227 K/uL (130-400); RDW Coefficient of Variation 12.3 % (11.5-14.5); RDW Standard Deviation 41.3 fL (36.4-46.3); Red Blood Count 3.61 M/uL (3.93-5.22); White Blood Count 11.78 K/ul (4.8-10.8)
[2021-12-04 01:07] LABS: Fibrinogen 320 mg/dl (184-400); Partial Thromboplastin Ratio 0.8; Partial Thromboplastin Time 22.8 Seconds (21.0-31.0); Prothrombin Time 10.9 Seconds (9.0-12.0)
[2021-12-04] MEDS ORDERED: STROKE PATIENT DISCHARGE STA (01:09)
--- NOTE | 2021-12-04 01:38 | History and Physical Report ---
DATE OF ADMISSION: 12/03/2021 CHIEF COMPLAINT: Acute CVA. HISTORY OF PRESENT ILLNESS: This is an 81-year-old female with past medical history significant for hypertension, prediabetes, obesity, who presents with stroke-like symptoms. The patient lives in the basement of her daughter's house. As per daughter, at 4:30 p.m.,when she talked with patient on the phone, she was fine, and when she saw her mother at 6:00 p.m., patient was having word finding difficulty. She brought her to the hospital, stroke alert was called. CT scan was showing suspicious for acute to subacute ischemia seen in the right parietooccipital junction. The patient was given TNK. The patient is currently speaking, but speaking tangently; for questions, she is answering something else. There is no obvious facial droop seen. Tries to obey commands. Daughter at the bedside. Apparently, the patient was doing okay until this happened, she was walking and climbing steps okay. No recent fever or chills. No cough, no chest pain, no shortness of breath, no nausea, no vomiting. Normal bowel movements. No headache currently. ALLERGIES: METHYLPREDNISOLONE. PAST MEDICAL HISTORY: As mentioned above. PAST SURGICAL HISTORY: No surgical history on file. MEDICATIONS: The patient is on vitamin C 1 gram p.o. daily, aspirin 162.5 mg p.o. daily, Refresh tears ophthalmic eye drops b.i.d. p.r.n., vitamin D 25 mcg p.o. daily, Osteo Bi-Flex Triple Strength 1 tablet p.o. b.i.d., hydrochlorothiazide 25 mg p.o. daily, latanoprost 1 drop daily, losartan 50 mg p.o. daily, magnesium oxide 400 mg p.o. daily, metoprolol tartrate 12.5 mg p.o. b.i.d., [place] fish oil 1 gram p.o. daily, potassium chloride 20 mEq p.o. b.i.d., simvastatin 20 mg p.o. daily. FAMILY HISTORY: Significant for father and mother . SOCIAL HISTORY: Lives with her daughter. No smoking history. REVIEW OF SYSTEMS: As per HPI, could not get complete review of systems as the patient has difficulty speaking. PHYSICAL EXAMINATION: GENERAL: The patient is obese, not in acute distress. VITAL SIGNS: Temperature 36.4, pulse 74, respiratory rate 16, blood pressure 162/86, oxygen 98% on room air. HEENT: Atraumatic. Can raise the eyebrows. No facial droop seen. NECK: No JVD or neck masses. CARDIOVASCULAR: S1 and S2 heard. Regular rate and rhythm. No murmur, no gallop. RESPIRATORY: Normal AP diameter. No accessory muscle use. No wheezing or crackles. ABDOMEN: Soft, bowel sounds present, nontender, no distention. CENTRAL NERVOUS SYSTEM: Alert and awake, speaking tangently. No facial droop. Tongue midline. Power 5/5 in all extremities. No pronator drift. Coordination of movements okay. Xbnfgy-dr-qugf test is okay. Can raise lower extremity and hold for a few seconds. EXTREMITIES: No edema, no erythema. LABORATORY DATA: WBC 10, hemoglobin 13.4, hematocrit 40, platelets 306. PT 10.4, INR 1, APTT 23.4. Sodium 138, potassium 3.6, chloride 102, bicarbonate 28, BUN 29, creatinine 1.2, serum glucose 146, calcium 9.4, magnesium 2.1, total bilirubin 0.6, AST 16, ALT 11, alkaline phosphatase 71. Troponin I of 10. Urinalysis; positive for nitrite, leukocyte esterase and +3 bacteria. SARS-CoV-2 rapid test negative. IMAGING: CTA of the head and neck and also CT of the head. CT of the head showing subacute to chronic ischemia seen in the right parietooccipital junction. No hemorrhage or mass effect. Unremarkable CT angiogram of the head, unremarkable CT angiogram of the neck. A 1.3 cm nodular opacity in the left apex. A 9 mm left upper lobe pulmonary nodule. Followup dedicated CT chest in one month's time is recommended for reassessment. ELECTROCARDIOGRAM: Sinus rhythm with first-degree AV block with PACs with aberrant conduction at a rate of 70. Prolonged QTc at 492. ASSESSMENT AND PLAN: This 81-year-old female presents with acute cerebrovascular accident. 1. Acute cerebrovascular accident with word finding difficulty and also speaking tangental. Status post TNK in the Emergency Room, stroke with tPA/TNK protocol, first 24-hour protocol ordered. MRI of the brain ordered and echocardiogram ordered.Sstroke tPA/TNK , second 24-hour protocol can be ordered tomorrow. No aspirin for now. Monitor the blood pressure closely. To start nicardipine drip if blood pressure systolic close to 180 and diastolic close to 100. Keep systolic blood pressure below 180 and diastolic below 100. To Closely monitor in the intensive care unit. Gentle fluids for now. 2. Hypertension. Start nicardipine drip if blood pressure is greater or close to 180/100. 3. Prediabetes. Follow HbA1c levels. Currently n.p.o. 4. Hyperlipidemia, currently n.p.o. Follow the lipid profile. 5. Possible urinary tract infection. Follow the cultures. Empirically start on Rocephin. 6. Deep venous thrombosis prophylaxis, sequential compression devices for now. Addendum: Patient mental status and symptoms remained same. But MRI scan showed: 1. There is a large hematoma centered in the left parieto- occipital region at the site of previously suggested watershed infarct indicating acute hemorrhagic transformation. 2. There is subdural extension, with a 6 mm subdural hemorrhage along the left convexity. 3. There is also likely trace subarachnoid extension along the left sylvian fissure. 4. There is associated mass effect with effacement of the left-sided cortical sulci and 4 mm of left to right midline shift. 5. Postcontrast enhancement within the parenchymal and subdural hemorrhages suggests active extravasation. 6. A chronic right-sided watershed infarct is noted. 7. There may also be subdural hemorrhage versus artifact at the skull base posterior to the clivus. This could be further assessed with a repeat CT. [facility] and neurology was called and was accepted in transfer. Daughter was notified by ICU. [place] neurology was notified. Patient was given TXA for reversal and is to received 10 units cryoprecipitate per protocol. Mannitol was also ordered. Nicardine drip was ordered to maintain SBP to <140 As life flight was not available due to inclement weather plan was to transport by Ground with ACLS. Job ID: [id number] [facility]
--- NOTE | 2021-12-04 07:38 | Discharge Summary ---
Date of Service December 04, 2021 Admission HPI Per Admitting Provider This is an 81-year-old female with past medical history significant for hypertension, prediabetes, obesity, who presents with stroke-like symptoms. The patient lives in the basement of her daughter's house. As per daughter, at 4:30 p.m.,when she talked with patient on the phone, she was fine, and when she saw her mother at 6:00 p.m., patient was having word finding difficulty. She brought her to the hospital, stroke alert was called. CT scan was showing suspicious for acute to subacute ischemia seen in the right parietooccipital junction. The patient was given TNK. The patient is currently speaking, but sp eaking tangently; for questions, she is answering something else. There is no obvious facial droop seen. Tries to obey commands. Daughter at the bedside. Apparently, the patient was doing okay until this happened, she was walking and climbing steps okay. No recent fever or chills. No cough, no chest pain, no shortness of breath, no nausea, no vomiting. Normal bowel movements. No headache currently. Admission Exam (Per Admitting) Constitutional GENERAL: The patient is obese, not in acute distress. VITAL SIGNS: Temperature 36.4, pulse 74, respiratory rate 16, blood pressure 162/86, oxygen 98% on room air. HEENT: Atraumatic. Can raise the eyebrows. No facial droop seen. NECK: No JVD or neck masses. CARDIOVASCULAR: S1 and S2 heard. Regular rate and rhythm. No murmur, no gallop. RESPIRATORY: Normal AP diameter. No accessory muscle use. No wheezing or crackles. ABDOMEN: Soft, bowel sounds present, nontender, no distention. CENTRAL NERVOUS SYSTEM: Alert and awake, speaking tangently. No facial droop. Tongue midline. Power 5/5 in all extremities. No pronator drift. Coordination of movements okay. Ecwzuy-zv-rluu test is okay. Can raise lower extremity and hold for a few seconds. EXTREMITIES: No edema, no erythema. Discharge Data Consultations 12/03/21 20:00 ED Decision to Admit Stat 12/03/21 22:02 Consult Processing Lead Routine 12/04/21 01:01 Burn CD for patient Stat Hospital Course (1) Cerebrovascular accident: Plan This 81-year-old female presents with acute cerebrovascular accident. 1. Acute cerebrovascular accident with word finding difficulty and also speaking tangental. Status post TNK in the Emergency Room, stroke with tPA/TNK protocol, first 24-hour protocol ordered. MRI of the brain ordered and echocardiogram ordered.Sstroke tPA/TNK , second 24-hour protocol can be ordered tomorrow. No aspirin for now. Monitor the blood pressure closely. To start nicardipine drip if blood pressure systolic close to 180 and diastolic close to 100. Keep systolic blood pressure below 180 and diastolic below 100. To Closely monitor in the intensive care unit. Gentle fluids for now. 2. Hypertension. Start nicardipine drip if blood pressure is greater or close to 180/100. 3. Prediabetes. Follow HbA1c levels. Currently n.p.o. 4. Hyperlipidemia, currently n.p.o. Follow the lipid profile. 5. Possible urinary tract infection. Follow the cultures. Empirically start on Rocephin. 6. Deep venous thrombosis prophylaxis, sequential compression devices for now. Addendum: Patient mental status and symptoms remained same. But MRI scan showed: 1. There is a large hematoma centered in the left parieto- occipital region at the site of previously suggested watershed infarct indicating acute hemorrhagic transformation. 2. There is subdural extension, with a 6 mm subdural hemorrhage along the left convexity. 3. There is also likely trace subarachnoid extension along the left sylvian fissure. 4. There is associated mass effect with effacement of the left-sided cortical sulci and 4 mm of left to right midline shift. 5. Postcontrast enhancement within the parenchymal and subdural hemorrhages suggests active extravasation. 6. A chronic right-sided watershed infarct is noted. 7. There may also be subdural hemorrhage versus artifact at the skull base posterior to the clivus. This could be further assessed with a repeat CT. [place] neurology was called and was accepted in transfer. Daughter was notified by ICU. [place] neurology was notified. Patient was givenTXA for reversal and is to received 10 units cryoprecipitate per protocol. Mannitol was also ordered. Nicardine drip was ordered to maintain SBP to <140 As life flight was not available due to inclement weather plan was to transport by Ground with ACLS.
--- NOTE | 2021-12-04 12:43 | Electrocardiogram Report ---
Test Reason : Blood Pressure : / mmHG Vent. Rate : 070 BPM Atrial Rate : 070 BPM P-R Int : 222 ms QRS Dur : 082 ms QT Int : 456 ms P-R-T Axes : 049 045 074 degrees QTc Int : 492 ms Sinus rhythm with 1st degree A-V block with Premature ventricular complexes Prolonged QT Abnormal ECG When compared with ECG of 01-APR-1998 18:32, DC interval has increased QT has shortened Confirmed by aDrion Merrill ([id number]) on 12/04/2021 12:42:41 PM Referred By: REFERRED SELF Confirmed By:Darion Merrill
== END 2021-12-04 02:47 | disposition short-term general hospital (02) | DRG 61 ==
LOC: ED 18:42 → 1E 21:18

== ENCOUNTER 2022-01-09 15:48 | Inpatient (IN) ==
[2022-01-09] MEDS ORDERED: SODIUM CHLORIDE 0.9% 1000ML 1,000 ML IV ONE (16:04)
[2022-01-09 16:15] LABS: iSTAT Hemoglobin 12.2 g/dl (12.0-16.0); iSTAT Ionized Calcium 1.23 mmol/l (1.12-1.32); iSTAT Potassium 4.3 mmol/L (3.3-5.0)
[2022-01-09 16:16] LABS: Basophils # (auto) 0.05 K/uL (0-0.2); Basophils % (auto) 0.5 %; Eosinophils # (auto) 0.75 K/uL (0-0.50); Eosinophils % (auto) 7.6 %; Hematocrit (blood only) 36.2 % (34.1-44.9); Hemoglobin 11.5 g/dl (12.0-16.0); Immature Granulocytes # (auto) 0.07 K/uL (0.00-0.02); Immature Granulocytes % (auto) 0.7 %; Lymphocytes # (auto) 2.61 K/uL (1.2-3.4); Lymphocytes % (auto) 26.5 %; Mean Corpuscular Hemoglobin 31.2 pg (25.0-34.0); Mean Corpuscular Hgb Conc 31.8 g/dL (32.0-36.0); Mean Corpuscular Volume 98.1 fL (80.0-100.0); Mean Platelet Volume 11.3 fL (9.4-12.3); Monocytes % (auto) 10.1 %; Neutrophils # (auto) 5.38 K/uL (1.4-6.5); Neutrophils % (auto) 54.6 %; Platelet Count 263 K/uL (130-400); RDW Coefficient of Variation 14.6 % (11.5-14.5); RDW Standard Deviation 52.4 fL (36.4-46.3); Red Blood Count 3.69 M/uL (3.93-5.22); White Blood Count 9.86 K/ul (4.8-10.8)
--- NOTE | 2022-01-09 16:27 | XRay Report ---
XR chest 1V portable CLINICAL HISTORY: Chest Pain TECHNIQUE: Single frontal radiograph of the chest was obtained. Comparison: None available at the time of this dictation. FINDINGS: No lines and tubes are seen. The cardiomediastinal silhouette is normal. The lungs are clear. No evid ence of pleural effusion or pneumothorax. IMPRESSION: No acute chest disease. ACT 112: Negative or not required by law. Electronically signed by: Ruddy Storm M.D. 01/09/2022 4:25 PM
[2022-01-09] MEDS ORDERED: LORazepam 2 MG/1 ML VIAL IV STA (16:37)
[2022-01-09 16:42] LABS: Albumin Globulin Ratio 1.2 (0.9-2); Albumin Level 3.8 gm/dl (3.4-5.0); Bilirubin,Total 0.5 mg/dl (0.2-1.0); Calcium 9.8 mg/dl (8.5-10.1); Creatinine Clr Calc Pharmacy 54.1 ml/min; Est GFR (African American) 64.3 ml/min; Est GFR (Non-African American) 55.5 ml/min; Globulin 3.1 gm/dl (2.5-4.0); Magnesium 1.8 mg/dl (1.7-2.4); Potassium 4.3 mmol/L (3.5-5.1); Total Protein 6.9 gm/dl (6.0-8.3)
[2022-01-09 16:45] LABS: Troponin I High Sensitivity 11.2 pg/ml (0-14)
--- NOTE | 2022-01-09 16:45 | Emergency Department Note ---
Impression & Plan Cerebrovascular accident, Aphasia, Hypertension, Change in mental status ED Provider Note NAME: KEIKO CANALES AGE: 81 SEX: F ARRIVES VIA: Ambulance INFORMANT: Patient ED PROVIDER(S): Shalom Phillips MD CHIEF COMPLAINT: Change in mental status. PLAN: Disposition: MEDICAL DECISION MAKING: The patient is a pleasant 81-year-old woman with a past medical history of hypertension and recent CVA at the end of November status posttreatment with tPA wit h subsequent intracranial hemorrhage transfer to [facility] who presents emerged department from her acute rehab facility at [facility] and eventually accompanied by her daughter for evaluation of increased episodes of confusion and agitation over the past several days. In has baseline aphasia from her CVA which her daughter reports is unchanged. The patient does report repetitive eye blinking emergency department which the daughter reports has been ongoing since the stroke and will go on time but then she will have periods where he does not present. Last time she saw her at [facility] she reports it was occurring. The patient is awake during these periods. Per [facility] records Sz activity excluded on EEG monitoring. On arrival the patient is in no acute distress, afebrile blood pressure 170/100s and vital signs otherwise stable. She appears clinically dry. She again exhibi ts repetitive blinking of bilateral eyes. She has severe aphasia with incomprehensible content. She does follow commands. EKG without overt acute ischemia. CXR negative for acute cardiopulmonary pr ocess. WBC and platelets wnl. H/H similar to prior. Chemistry without acidosis. Electrolytes unremarkable. AST and ALt 46 and 84, respectively. Otherwise, LFTs without significant abnormality. HS Troponin 11.2, wnl. UA without convincing evidence of infection. Covid-19 RNA, NAAT negative. CT head demonstrates prior left parieto-occipital region infarct with hemorrhagic transformation without new hemorrhage seen. Subclinical sz considered and so Ativan given to see if any change in patient's repetitive blinking and this had no effect. Given change in patient's baseline mental status daughter agrees with plan for admission for further management. Case was discussed with Madelin Harris [facility] PAC with Dr. Salgado, [facility] hospitalist, who will evaluate the patient for admission. Triage Nursing notes reviewed and agree them. Prior medical records reviewed Vital Signs: reviewed and remarkable for hypertension. Differential diagnosis: Infection, dehydration, metabolic abnormality, hypo/hyperglycemia, electrolyte disturbance, anemia, hypoxia, cardiac sources, intracerebral event, toxicologic, neurologic, as well as other pathologies. ER treatment provided: See below. Diagnostics interpreted by me: ECG: NSR, 70 bpm, no ectopy, no overt ST elevation or depression. Cardiac Monitoring: An order for continuous cardiac monitoring was placed and demonstrated NSR, 70 bpm, no ectopy. Laboratory studies: See below Imaging studies: See below Consultation(s): Madelin Harris [facility] PAC with Dr. Salgado [facility] hospitalist, who will evaluate the patient for admission. HPI: The patient is a pleasant 81-year-old woman with a past medical history of hypertension and recent CVA at the end of November status posttreatment with tPA with subsequent intracranial hemorrhage transfer to [facility] who presents emerged department from her acute rehab facility at [facility] and eventually accompanied by her daughter for evaluation of increased episodes of confusion and agitation over the past several days. In has baseline aphasia from her CVA which her daughter reports is unchanged. The patient does report repetitive eye blinking emergency department which the daughter reports has been ongoing since the stroke and will go on time but then she will have periods where he does not present. Last time she saw her at [facility] she reports it was occurring. The patient is awake during these periods. ROS: See above HPI for pertinent positives & negatives. A total of 10 systems reviewed and were otherwise negative. VITALS:See Below PHYSICAL EXAMINATION: GENERAL: Awake, alert, fatigued-appearing, in no distress HENT: Normocephalic, atraumatic. Oropharynx with dry mucous membranes and otherwise unremarkable. EYES: Normal conjunctiva. Sclera non-icteric. Repetitive blinking of bilateral eyes. EOMI. No nystamgus. PEARRL. NECK: Supple. No nuchal rigidity. FROM. No JVD. RESPIRATORY: Clear to auscultation. CARDIAC: Regular rate, normal rhythm. Extremities warm and well perfused. Pulses equal. ABDOMEN: Soft, non-distended. No tenderness to palpation. No rebound or guarding. No masses. RECTAL: Deferred. MUSCULOSKELETAL: Chest examination reveals no tenderness. The back is symmetrical on inspection without obvious abnormality. There is no CVA tenderness to palpation. No joint edema. LOWER EXTREMITIES: Calves are equal size bilaterally and non-tender. No edema. No discoloration. NEURO: She has severe aphasia with incomprehensible content. She does follow commands. SKIN: No rash or jaundice noted. 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 Required: No Beliefs That Will Affect Care: None Current Living Situation: Rehab Current Living Situation Comment: [facility] Feels Safe at Home: Yes Assistive Devices: Glasses and Walker Allergies Allergies Allergy/AdvReac Type Severity Reaction Status Date / Time methylprednisolone Allergy Intermediate USED WHEN Verified 12/03/21 19:24 HAD POSION RAZ AND BROKE OUT IN HIV Home Meds Home Medications Medication Instructions Recorded Confirmed glucosamine 750 [id number] 1 tab PO DAILY 12/03/21 01/09/22 no1 644 mg-C 30 mg-omayra 1 mg tablet (Osteo Bi-Flex Triple Strength) latanoprost 0.005 % eye drops 1 drp OPB HS 12/03/21 01/09/22 losartan 50 mg tablet 50 mg PO DAILY 12/03/21 01/09/22 magnesium oxide 400 mg PO DAILY 12/03/21 01/09/22 omega-3 fatty acids 1,000 mg 1,000 mg PO DAILY 12/03/21 01/09/22 capsule acetaminophen 325 mg tablet 650 mg PO Q4 PRN Pain 01/09/22 01/09/22 acetaminophen 500 mg tablet 500 mg PO QID 01/09/22 01/09/22 aspirin 81 mg tablet,delayed 81 mg PO DAILY 01/09/22 01/09/22 release atorvastatin 40 mg tablet 40 mg PO .WITH DINNER 01/09/22 01/09/22 cholecalciferol (vitamin D3) 25 25 mcg PO DAILY 01/09/22 01/09/22 mcg (1,000 unit) tablet (Vitamin D3) cyclosporine 0.05 % eye drops in a 1 drp ophthalmic (eye) Q12H 01/09/22 01/09/22 dropperette (Restasis) docusate sodium 100 mg capsule 100 mg PO BID 01/09/22 01/09/22 (Colace) heparin (porcine) 5,000 unit/mL 5,000 unit subcut Q8H 01/09/22 01/09/22 injection syringe metoprolol succinate 50 mg 50 mg PO DAILY 01/09/22 01/09/22 tablet,extended release 24 hr ondansetron HCl 4 mg tablet 4 mg PO Q6H PRN Nausea 01/09/22 01/09/22 Results & Data (ED) Vital Signs Vital Signs - 24 hr 01/09/22 15:59 01/09/22 16:31 01/09/22 17:00 Temperature 36.7 C Temperature Source Oral Pulse Rate 70 80 93 H Pulse Rate [Finger] Pulse Rate from SpO2 Sensor 70 65 Pulse Rhythm Regular Pulse Strength Normal Respiratory Rate 20 19 17 Respiratory Effort / Characteristics Non-Labored Spontaneous Respiratory Depth Normal Respiratory Pattern Regular Blood Pressure 175/103 H 147/92 H 148/92 H Blood Pressure [Left Arm] Blood Pressure Mean 127 110 110 Blood Pressure Mean [Left Arm] Blood Pressure Position Sitting Blood Pressure Position [Left Arm] Pulse Oximetry 98 97 94 Oxygen Delivery Method Room Air Sepsis Recent Fever Within 48 Hours No Sepsis New/Unexplained Change in Mental Status N/A Sepsis Action Taken by Nursing No Action Required 01/09/22 17:30 01/09/22 17:51 01/09/22 19:21 Temperature Temperature Source Pulse Rate 99 H 78 Pulse Rate [Finger] 64 Pulse Rate from SpO2 Sensor 69 Pulse Rhythm Pulse Strength Respiratory Rate 19 21 17 Respiratory Effort / Characteristics Non-Labored Spontaneous Respiratory Depth Normal Respiratory Pattern Blood Pressure 148/92 H 122/76 Blood Pressure [Left Arm] 128/63 Blood Pressure Mean 110 91 Blood Pressure Mean [Left Arm] 84 Blood Pressure Position Blood Pressure Position [Left Arm] Lying Pulse Oximetry 98 98 Oxygen Delivery Method Room Air Sepsis Recent Fever Within 48 Hours Sepsis New/Unexplained Change in Mental Status Sepsis Action Taken by Nursing 01/09/22 19:23 01/09/22 19:23 Temperature Temperature Source Pulse Rate 68 Pulse Rate [Finger] Pulse Rate from SpO2 Sensor Pulse Rhythm Pulse Strength Respiratory Rate 17 Respiratory Effort / Characteristics Respiratory Depth Respiratory Pattern Blood Pressure Blood Pressure [Left Arm] Blood Pressure Mean Blood Pressure Mean [Left Arm] Blood Pressure Position Blood Pressure Position [Left Arm] Pulse Oximetry 98 98 Oxygen Delivery Method Room Air Room Air Sepsis Recent Fever Within 48 Hours Sepsis New/Unexplained Change in Mental Status Sepsis Action Taken by Nursing Laboratory Data Attestation: I reviewed the patient's lab results. Result diagrams: 01/09/22 16:00 01/09/22 16:00 Lab Results 01/09/22 01/09/22 01/09/22 Range/Units 16:00 16:00 16:00 WBC 9.86 (4.8-10.8) K/ul RBC 3.69 L (3.93-5.22) M/uL Hgb 11.5 L (12.0-16.0) g/dl POC Hgb (12.0-16.0) g/dl Hct 36.2 (34.1-44.9) % POC Hct (37-47) % MCV 98.1 (80.0-100.0) fL MCH 31.2 (25.0-34.0) pg MCHC 31.8 L (32.0-36.0) g/dL RDW Std Deviation 52.4 H (36.4-46.3) fL RDW Coeff of Ralph 14.6 H (11.5-14.5) % Plt Count 263 (130-400) K/uL MPV 11.3 (9.4-12.3) fL Immature Gran % (Auto) 0.7 % Neut % (Auto) 54.6 % Lymph % (Auto) 26.5 % Tyrrell % (Auto) 10.1 % Eos % (Auto) 7.6 % Baso % (Auto) 0.5 % Neut # (Auto) 5.38 (1.4-6.5) K/uL Lymph # (Auto) 2.61 (1.2-3.4) K/uL Tyrrell # (Auto) 1.00 H (0.24-0.82) K/uL Eos # (Auto) 0.75 H (0-0.50) K/uL Baso # (Auto) 0.05 (0-0.2) K/uL Immature Gran # (Auto) 0.07 H (0.00-0.02) K/uL POC Sodium (135-144) mmol/L Sodium 140 (136-145) mmol/L POC Potassium (3.3-5.0) mmol/L Potassium 4.3 (3.5-5.1) mmol/L POC Chloride (101-112) mmol/L Chloride 101 (98-107) mmol/L Carbon Dioxide 33 H (21-32) mmol/L POC Total CO2 (24-31) mmol/L Anion Gap 6 (3-11) POC Anion Gap (16-25) mmol/L POC BUN (7-18) mg/dl BUN 24 H (6-23) mg/dl Creatinine 0.96 (0.6-1.2) mg/dl POC Creatinine (0.6-1.3) mg/dl Est Cr Clr Drug Dosing 54.1 ml/min Est GFR ( Amer) 64.3 ml/min Est GFR (Non-Af Amer) 55.5 ml/min BUN/Creatinine Ratio 25.0 H (10-20) Glucose 114 H (70-99(Fasting)) mg/dl POC Glucose (other) (70-99) mg/dl Calcium 9.8 (8.5-10.1) mg/dl POC Ioniz Calcium Shonda (1.12-1.32) mmol/l Phosphorus 4.0 (2.5-4.9) mg/dl Magnesium 1.8 (1.7-2.4) mg/dl Total Bilirubin 0.5 (0.2-1.0) mg/dl AST 46 H (13-39) U/L ALT 84 H (7-52) U/L Alkaline Phosphatase 93 (34-104) U/L Troponin I High Sens 11.2 D (0-14) pg/ml Total Protein 6.9 (6.0-8.3) gm/dl Albumin 3.8 (3.4-5.0) gm/dl Globulin 3.1 (2.5-4.0) gm/dl Albumin/Globulin Ratio 1.2 (0.9-2) Lipase 45 (11-82) U/L TSH 0.741 (0.300-4.500) uIu/ml Urine Color Urine Appearance (Clear) Urine pH (4.5-7.5) Ur Specific Gillette (1.000-1.030) Urine Protein (Negative) Urine Glucose (UA) (Negative) Urine Ketones (Negative) Urine Blood (Negative) Urine Nitrite (Negative) Urine Bilirubin (Negative) Urine Urobilinogen (Negative) Ur Leukocyte Esterase (Negative) SARS-CoV-2, RNA, NAAT (NEGATIVE) 01/09/22 01/09/22 01/09/22 Range/Units 16:03 18:00 18:25 WBC (4.8-10.8) K/ul RBC (3.93-5.22) M/uL Hgb (12.0-16.0) g/dl POC Hgb 12.2 (12.0-16.0) g/dl Hct (34.1-44.9) % POC Hct 36 L (37-47) % MCV (80.0-100.0) fL MCH (25.0-34.0) pg MCHC (32.0-36.0) g/dL RDW Std Deviation (36.4-46.3) fL RDW Coeff of Ralph (11.5-14.5) % Plt Count (130-400) K/uL MPV (9.4-12.3) fL Immature Gran % (Auto) % Neut % (Auto) % Lymph % (Auto) % Tyrrell % (Auto) % Eos % (Auto) % Baso % (Auto) % Neut # (Auto) (1.4-6.5) K/uL Lymph # (Auto) (1.2-3.4) K/uL Tyrrell # (Auto) (0.24-0.82) K/uL Eos # (Auto) (0-0.50) K/uL Baso # (Auto) (0-0.2) K/uL Immature Gran # (Auto) (0.00-0.02) K/uL POC Sodium 141 (135-144) mmol/L Sodium (136-145) mmol/L POC Potassium 4.3 (3.3-5.0) mmol/L Potassium (3.5-5.1) mmol/L POC Chloride 99 L (101-112) mmol/L Chloride (98-107) mmol/L Carbon Dioxide (21-32) mmol/L POC Total CO2 30 (24-31) mmol/L Anion Gap (3-11) POC Anion Gap 17.0 (16-25) mmol/L POC BUN 24 H (7-18) mg/dl BUN (6-23) mg/dl Creatinine (0.6-1.2) mg/dl POC Creatinine 1.0 (0.6-1.3) mg/dl Est Cr Clr Drug Dosing ml/min Est GFR ( Amer) ml/min Est GFR (Non-Af Amer) ml/min BUN/Creatinine Ratio (10-20) Glucose (70-99(Fasting)) mg/dl POC Glucose (other) 120 H (70-99) mg/dl Calcium (8.5-10.1) mg/dl POC Ioniz Calcium Shonda 1.23 (1.12-1.32) mmol/l Phosphorus (2.5-4.9) mg/dl Magnesium (1.7-2.4) mg/dl Total Bilirubin (0.2-1.0) mg/dl AST (13-39) U/L ALT (7-52) U/L Alkaline Phosphatase (34-104) U/L Troponin I High Sens (0-14) pg/ml Total Protein (6.0-8.3) gm/dl Albumin (3.4-5.0) gm/dl Globulin (2.5-4.0) gm/dl Albumin/Globulin Ratio (0.9-2) Lipase (11-82) U/L TSH (0.300-4.500) uIu/ml Urine Color Yellow Urine Appearance Clear (Clear) Urine pH 8.5 H (4.5-7.5) Ur Specific Gillette 1.012 (1.000-1.030) Urine Protein Negative (Negative) Urine Glucose (UA) Negative (Negative) Urine Ketones Negative (Negative) Urine Blood Negative (Negative) Urine Nitrite Negative (Negative) Urine Bilirubin Negative (Negative) Urine Urobilinogen Negative (Negative) Ur Leukocyte Esterase Negative (Negative) SARS-CoV-2, RNA, NAAT NEGATIVE (NEGATIVE) Administered Medications Discontinued Medications Sodium Chloride (Nss 1000ml) 1,000 mls @ 999 mls/hr IV .[id number] ONE Stop: 01/09/22 17:04 Last Infusion: 01/09/22 18:15 Dose: 0 mls/hr Documented By: Admin: 01/09/22 17:00 Dose: 999 mls/hr Documented By: NARINDER Lorazepam (Lorazepam 2 Mg/1 Ml Vial) 0.25 mg IV NOW STA; Protocol Stop: 01/09/22 16:38 Last Admin: 01/09/22 16:54 Dose: 0.25 mg Documented By: MT Imaging Data Radiologist's Impression: Chest X-Ray 01/09/22 16:05 XR chest 1V portable CLINICAL HISTORY: Chest Pain TECHNIQUE: Single frontal radiograph of the chest was obtained. Comparison: None available at the time of this dictation. FINDINGS: No lines and tubes are seen. The cardiomediastinal silhouette is normal. The lungs are clear. No evidence of pleural effusion or pneumothorax. IMPRESSION: No acute chest disease. ACT 112: Negative or not required by law. Electronically signed by: Ruddy Storm M.D. 01/09/2022 4:[address] 01/09/22 16:37 CT head/brain wo con CLINICAL HISTORY: ams, s/p cva, tpa, ICH Technique: Contiguous axial CT images of the head were acquired from the base of the skull to the vertex without intravenous contrast administration. Images were viewed in brain, subdural and bone windows. Automated dose lowering techniques and/or adjustment according to patient size were utilized for this exam. Comparison: Comparison is made to CTA head and neck 12/03/2021 and MRI brain 12/03/2021 Findings: Redemonstration of edema in the left parieto-occipital cortex with effacement of the sulci. No new hemorrhage is seen at this site. Redemonstration of old encephalomalacia in the right parietal cortex. No significant midline shift or mass effect is seen. Imaged portions of the paranasal sinuses and mastoid air cells are clear. The orbits appear normal. There are no acute fractures of the calvaria or scalp swelling. Impression: Redemonstration of edema in the left parieto-occipital region compatible with history of acute infarct with hemorrhagic transformation. No new hemorrhage is seen. No mass effect or midline shift is noted. No CT evidence of acute infarct is seen. ACT 112: Negative or not required by law. Electronically signed by: Ruddy Storm M.D. 01/09/2022 5:41 PM Discharge Plan Visit Data Chief Complaint: Altered Mental Status Stated Complaint: AMS ED Provider: Shalom Phillips Discharge Problem: Cerebrovascular accident, Aphasia, Hypertension, Change in mental status Patient Disposition: Admitted As Inpatient Discharge Instructions Interventions: ED Discharge Assessment Last Done: 01/09/22 22:35
--- NOTE | 2022-01-09 17:43 | CT Scan Report ---
CT head/brain wo con CLINICAL HISTORY: ams, s/p cva, tpa, ICH Technique: Contiguous axial CT images of the head were acquired from the base of the skull to the eladia landon without intravenous contrast administration. Images were viewed in brain, subdural and bone windo ws. Automated dose lowering techniques and/or adjustment according to patient size were utilized for this exam. Comparison: Comparison is made to CTA head and neck 12/03/2021 and MRI brain 12/03/2021 Findings: Redemonstration of edema in the left parieto-occipital cortex with effacement of the sulci. No new he morrhage is seen at this site. Redemonstration of old encephalomalacia in the right parietal cortex. No significant midline shift or mass effect is seen. Imaged portions of the paranasal sinuses and mastoid air cells are clear. The orbits appear normal. There are no acute fractures of the calvaria or scalp swelling. Impression: Redemonstration of edema in the left parieto-occipital region compatible with history of acute infarc t with hemorrhagic transformation. No new hemorrhage is seen. No mass effect or midline shift is note d. No CT evidence of acute infarct is seen. ACT 112: Negative or not required by law. Electronically signed by: Ruddy Storm M.D. 01/09/2022 5:41 PM
[2022-01-09 18:53] LABS: Appearance Urine Clear (Clear); Bilirubin Urine Negative (Negative); Blood Urine Negative (Negative); Color Urine Yellow; Glucose Urine UA Negative (Negative); Ketones Urine Negative (Negative); Leukocyte Esterase Urine Negative (Negative); Nitrite Urine Negative (Negative); Protein Urine Negative (Negative); Specific Gravity Urine 1.012 (1.000-1.030); Urobilinogen Urine Negative (Negative); pH Urine 8.5 (4.5-7.5)
--- NOTE | 2022-01-09 20:27 | History & Physical Report ---
Date of Service January 09, 2022 Assessment & Plan (1) CVA (cerebral vascular accident): (2) Hypertension: (3) Hyperlipidemia: (4) Aphasia: (5) Prediabetes: Plan: Patient presents from [facility], after agitation/confusion overnight. Per daughter, she feels that the patient needed attention from nursing staff to attend bathroom and her needs were not met Patient has recent history of CVA, treated with thrombolytics, developed hemorrhage afterward and had prolonged hospitalization at [facility] Repeat CT head in the ED Re-demonstration of edema in the left parieto-occipital region compatible with history of acute infarct with hemorrhagic transformation. No new hemorrhage is seen. No mass effect or midline shift is noted. No CT evidence of acute infarct is seen. Patient w/history of C. difficile while hospitalized and was treated. At [facility] developed also UTI, was treated with Cipro and p.o. Vanco due to history of C. difficile Current UA in the ED is negative Per daughter, diarrhea has resolved Patient afebrile, WBC normal Chest x-ray unremarkable Infectious etiology seems unlikely at this time Patient with aphasia, dysphagia, some right sided weakness, post CVA -At [facility] for PT, seems to be improving overall -With dysphagia, consideration was for PEG tube, however patient continues to improve her p.o. intake Continue aspirin, statin, metoprolol, losartan Continue to monitor on telemetry, monitor BP, monitor mental status -Neurology consult in the morning History of paroxysmal A. fib -Continue metoprolol for rate control -Currently not on anticoagulation, plan was to obtain follow-up CT of the head, and discuss with neurology/neurosurgery Prediabetes -Monitor blood sugar levels CODE STATUS discussed with the patient and daughter, for now full code. 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 She was treated conservatively, never required craniotomy for evacuation of bleeding. She had prolonged hospitalization due to hypoactive delirium, several EEGs did not show seizure activity, she completed 7 days of Keppra. Her hospital course was complicated by C. difficile infection, which was treated. She was then transferred to [facility] after her hospitalization (12/23/2021). It was recommended she continues on aspirin, however this should stop when anticoagulation is started. She was scheduled for follow-up CT of the head for January 01, 2022 to assess for safety of starting anticoagulation. Her blood pressure to be controlled with metoprolol and losartan. Seems that she has been improving, strength huynh, as well as with her dysphagia at [facility]. Able to have some improved p.o. intake. She developed UTI, and was treated at [facility] with Cipro, p.o. Vanco was also provided given her recent history of C. difficile. Now presents in ED due to agitation/confusion. Daughter is present at the bedside, she reports that when patient has urge to urinate, she may try to go by herself to the bathroom. She gets agitated when she does not get prompt nursing staff attention. In the ED CT head was obtained, does not show any new stroke/new hemorrhage. + previously showed edema. No midline shift. Currently patient is lying in bed, in no acute distress. Denies any complaints, specifically denies any fevers, chills, chest pain, palpitations, shortness of breath. Denies abdominal pain, nausea vomiting. Denies any headache. Allergies Allergy/AdvReac Type Severity Reaction Status Date / Time methylprednisolone Allergy Intermediate USED WHEN Verified 12/03/21 19:24 HAD POSION RAZ AND BROKE OUT IN HIVES Home Medications Medication Instructions Recorded Confirmed Type glucosamine 750 [id number] 1 tab PO DAILY 12/03/21 01/09/22 History no1 644 mg-C 30 mg-omayra 1 mg tablet (Osteo Bi-Flex Triple Strength) latanoprost 0.005 % eye drops 1 drp OPB HS 12/03/21 01/09/22 History losartan 50 mg tablet 50 mg PO DAILY 12/03/21 01/09/22 History magnesium oxide 400 mg PO DAILY 12/03/21 01/09/22 History omega-3 fatty acids 1,000 mg 1,000 mg PO DAILY 12/03/21 01/09/22 History capsule acetaminophen 325 mg tablet 650 mg PO Q4 PRN Pain 01/09/22 01/09/22 History acetaminophen 500 mg tablet 500 mg PO QID 01/09/22 01/09/22 History aspirin 81 mg tablet,delayed 81 mg PO DAILY 01/09/22 01/09/22 History release atorvastatin 40 mg tablet 40 mg PO .WITH DINNER 01/09/22 01/09/22 History cholecalciferol (vitamin D3) 25 25 mcg PO DAILY 01/09/22 01/09/22 History mcg (1,000 unit) tablet (Vitamin D3) cyclosporine 0.05 % eye drops in a 1 drp ophthalmic (eye) Q12H 01/09/22 01/09/22 History dropperette (Restasis) docusate sodium 100 mg capsule 100 mg PO BID 01/09/22 01/09/22 History (Colace) heparin (porcine) 5,000 unit/mL 5,000 unit subcut Q8H 01/09/22 01/09/22 History injection syringe metoprolol succinate 50 mg 50 mg PO DAILY 01/09/22 01/09/22 History tablet,extended release 24 hr ondansetron HCl 4 mg tablet 4 mg PO Q6H PRN Nausea 01/09/22 01/09/22 History Past Med/Surg History Medical History (Updated 01/09/22 @ 20:21 by Mark Garcia MD) Aphasia CVA (cerebral vascular accident) Hx of Clostridium difficile infection Hyperlipidemia Hypertension Prediabetes Social History Smoking Status: Unknown if ever smoked Hx Alcohol Use: No Hx Substance Use: No Preferred Language: Sami Communication Ability: Impaired Knockup Worker Required: No Beliefs That Will Affect Care: None Current Living Situation: Alone Current Living Situation Comment: pt lives in apartment at daughter's home Feels Safe at Home: Yes Assistive Devices: Glasses Review of Systems Review of Systems: All systems reviewed & are unremarkable except as noted in Subjective Physical Exam Constitutional: WD/WN, vitals as above (elderly F in NAD) Eyes: nonicteric sclera, appropriate eye movement- able to follow object ENMT: external ear and nose normal, oropharynx normal Neck: supple Respiratory: normal respiratory effort, lungs clear to auscultation Cardiovascular: RRR, no murmur, no edema Chest (Breasts): Chest: normal inspection of chest Gastrointestinal (Abdomen): normal bowel sounds, soft, nontender, no hepatosplenomegaly Musculoskeletal: moves all extremities, some weakness on R side noted (post CVA) Skin: no rashes, warm and dry Neurologic: awake and alert, able to answer some questions appropriately(aphasia post CVA), moves extremities , + some right sided weakness (post CVA) Psychiatric: A+Ox3, euthymic affect Genitourinary: no CVA tenderness Lymphatic: + lymphedema (minimal bl LE) Results & Data Results & Data ([facility]) Vital Signs (Past 12 Hours) Vital Signs Temp Pulse Pulse Resp BP BP Pulse Ox 01/09/22 19:23 68 17 98 01/09/22 19:23 98 01/09/22 19:21 64 17 128/63 98 01/09/22 17:51 78 21 122/76 98 01/09/22 17:30 99 H 19 148/92 H 01/09/22 17:00 93 H 17 148/92 H 94 01/09/22 16:31 80 19 147/92 H 97 01/09/22 15:59 36.7 C 70 20 175/103 H 98 O2 Del Method 01/09/22 19:23 Room Air 01/09/22 19:23 Room Air 01/09/22 19:21 Room Air 01/09/22 17:51 01/09/22 17:30 01/09/22 17:00 01/09/22 16:31 01/09/22 15:59 Room Air Laboratory Results 01/09/22 01/09/22 01/09/22 Range/Units 18:25 18:00 16:03 WBC (4.8-10.8) K/ul RBC (3.93-5.22) M/uL Hgb (12.0-16.0) g/dl POC Hgb 12.2 (12.0-16.0) g/dl Hct (34.1-44.9) % POC Hct 36 L (37-47) % MCV (80.0-100.0) fL MCH (25.0-34.0) pg MCHC (32.0-36.0) g/dL RDW Std Deviation (36.4-46.3) fL RDW Coeff of Ralph (11.5-14.5) % Plt Count (130-400) K/uL MPV (9.4-12.3) fL Immature Gran % (Auto) % Neut % (Auto) % Lymph % (Auto) % Runnels % (Auto) % Eos % (Auto) % Baso % (Auto) % Neut # (Auto) (1.4-6.5) K/uL Lymph # (Auto) (1.2-3.4) K/uL Runnels # (Auto) (0.24-0.82) K/uL Eos # (Auto) (0-0.50) K/uL Baso # (Auto) (0-0.2) K/uL Immature Gran # (Auto) (0.00-0.02) K/uL POC Sodium 141 (135-144) mmol/L Sodium (136-145) mmol/L POC Potassium 4.3 (3.3-5.0) mmol/L Potassium (3.5-5.1) mmol/L POC Chloride 99 L (101-112) mmol/L Chloride (98-107) mmol/L Carbon Dioxide (21-32) mmol/L POC Total CO2 30 (24-31) mmol/L Anion Gap (3-11) POC Anion Gap 17.0 (16-25) mmol/L POC BUN 24 H (7-18) mg/dl BUN (6-23) mg/dl Creatinine (0.6-1.2) mg/dl POC Creatinine 1.0 (0.6-1.3) mg/dl Est Cr Clr Drug Dosing ml/min Est GFR ( Amer) ml/min Est GFR (Non-Af Amer) ml/min BUN/Creatinine Ratio (10-20) Glucose (70-99(Fasting)) mg/dl POC Glucose (other) 120 H (70-99) mg/dl Calcium (8.5-10.1) mg/dl POC Ioniz Calcium Shonda 1.23 (1.12-1.32) mmol/l Phosphorus (2.5-4.9) mg/dl Magnesium (1.7-2.4) mg/dl Total Bilirubin (0.2-1.0) mg/dl AST (13-39) U/L ALT (7-52) U/L Alkaline Phosphatase (34-104) U/L Troponin I High Sens (0-14) pg/ml Total Protein (6.0-8.3) gm/dl Albumin (3.4-5.0) gm/dl Globulin (2.5-4.0) gm/dl Albumin/Globulin Ratio (0.9-2) Lipase (11-82) U/L TSH (0.300-4.500) uIu/ml Urine Color Yellow Urine Appearance Clear (Clear) Urine pH 8.5 H (4.5-7.5) Ur Specific Bel[place] 1.012 (1.000-1.030) Urine Protein Negative (Negative) Urine Glucose (UA) Negative (Negative) Urine Ketones Negative (Negative) Urine Blood Negative (Negative) Urine Nitrite Negative (Negative) Urine Bilirubin Negative (Negative) Urine Urobilinogen Negative (Negative) Ur Leukocyte Esterase Negative (Negative) SARS-CoV-2, RNA, NAAT NEGATIVE (NEGATIVE) 01/09/22 01/09/22 01/09/22 Range/Units 16:00 16:00 16:00 WBC 9.86 (4.8-10.8) K/ul RBC 3.69 L (3.93-5.22) M/uL Hgb 11.5 L (12.0-16.0) g/dl POC Hgb (12.0-16.0) g/dl Hct 36.2 (34.1-44.9) % POC Hct (37-47) % MCV 98.1 (80.0-100.0) fL MCH 31.2 (25.0-34.0) pg MCHC 31.8 L (32.0-36.0) g/dL RDW Std Deviation 52.4 H (36.4-46.3) fL RDW Coeff of Ralph 14.6 H (11.5-14.5) % Plt Count 263 (130-400) K/uL MPV 11.3 (9.4-12.3) fL Immature Gran % (Auto) 0.7 % Neut % (Auto) 54.6 % Lymph % (Auto) 26.5 % Runnels % (Auto) 10.1 % Eos % (Auto) 7.6 % Baso % (Auto) 0.5 % Neut # (Auto) 5.38 (1.4-6.5) K/uL Lymph # (Auto) 2.61 (1.2-3.4) K/uL Runnels # (Auto) 1.00 H (0.24-0.82) K/uL Eos # (Auto) 0.75 H (0-0.50) K/uL Baso # (Auto) 0.05 (0-0.2) K/uL Immature Gran # (Auto) 0.07 H (0.00-0.02) K/uL POC Sodium (135-144) mmol/L Sodium 140 (136-145) mmol/L POC Potassium (3.3-5.0) mmol/L Potassium 4.3 (3.5-5.1) mmol/L POC Chloride (101-112) mmol/L Chloride 101 (98-107) mmol/L Carbon Dioxide 33 H (21-32) mmol/L POC Total CO2 (24-31) mmol/L Anion Gap 6 (3-11) POC Anion Gap (16-25) mmol/L POC BUN (7-18) mg/dl BUN 24 H (6-23) mg/dl Creatinine 0.96 (0.6-1.2) mg/dl POC Creatinine (0.6-1.3) mg/dl Est Cr Clr Drug Dosing 54.1 ml/min Est GFR ( Amer) 64.3 ml/min Est GFR (Non-Af Amer) 55.5 ml/min BUN/Creatinine Ratio 25.0 H (10-20) Glucose 114 H (70-99(Fasting)) mg/dl POC Glucose (other) (70-99) mg/dl Calcium 9.8 (8.5-10.1) mg/dl POC Ioniz Calcium Shonda (1.12-1.32) mmol/l Phosphorus 4.0 (2.5-4.9) mg/dl Magnesium 1.8 (1.7-2.4) mg/dl Total Bilirubin 0.5 (0.2-1.0) mg/dl AST 46 H (13-39) U/L ALT 84 H (7-52) U/L Alkaline Phosphatase 93 (34-104) U/L Troponin I High Sens 11.2 D (0-14) pg/ml Total Protein 6.9 (6.0-8.3) gm/dl Albumin 3.8 (3.4-5.0) gm/dl Globulin 3.1 (2.5-4.0) gm/dl Albumin/Globulin Ratio 1.2 (0.9-2) Lipase 45 (11-82) U/L TSH 0.741 (0.300-4.500) uIu/ml Urine Color Urine Appearance (Clear) Urine pH (4.5-7.5) Ur Specific Bel[place] (1.000-1.030) Urine Protein (Negative) Urine Glucose (UA) (Negative) Urine Ketones (Negative) Urine Blood (Negative) Urine Nitrite (Negative) Urine Bilirubin (Negative) Urine Urobilinogen (Negative) Ur Leukocyte Esterase (Negative) SARS-CoV-2, RNA, NAAT (NEGATIVE) Diagnostic Findings CT head Findings: Redemonstration of edema in the left parieto-occipital cortex with effacement of the sulci. No new hemorrhage is seen at this site. Redemonstration of old encephalomalacia in the right parietal cortex. No significant midline shift or mass effect is seen. Imaged portions of the paranasal sinuses and mastoid air cells are clear. The orbits appear normal. There are no acute fractures of the calvaria or scalp swelling. Impression: Re-demonstration of edema in the left parieto-occipital region compatible with history of acute infarct with hemorrhagic transformation. No new hemorrhage is seen. No mass effect or midline shift is noted. No CT evidence of acute infarct is seen. Code Status & VTE Plan VTE Prophylaxis Plan VTE Prophylaxis will be ordered: No
[2022-01-10] MEDS: LOSARTAN POTASSIUM 50 MG TAB PO SCH (07:48)
[2022-01-10] MEDS: METOPROLOL SUCC 50MG EXT REL TAB PO SCH (07:48)
[2022-01-10 08:16] LABS: Hematocrit (blood only) 31.8 % (34.1-44.9); Hemoglobin 10.3 g/dl (12.0-16.0); Mean Corpuscular Hgb Conc 32.4 g/dL (32.0-36.0); Mean Corpuscular Volume 95.8 fL (80.0-100.0); Mean Platelet Volume 11.3 fL (9.4-12.3); Platelet Count 241 K/uL (130-400); RDW Coefficient of Variation 14.9 % (11.5-14.5); RDW Standard Deviation 52.3 fL (36.4-46.3); Red Blood Count 3.32 M/uL (3.93-5.22); White Blood Count 7.49 K/ul (4.8-10.8)
[2022-01-10 08:58] LABS: BUN Creatinine Ratio 25.4 (10-20); Calcium 9.2 mg/dl (8.5-10.1); Creatinine Clr Calc Pharmacy 73.9 ml/min; Est GFR (African American) 92.6 ml/min; Est GFR (Non-African American) 79.9 ml/min; Magnesium 1.8 mg/dl (1.7-2.4); Potassium 4.2 mmol/L (3.5-5.1)
[2022-01-10] MEDS ORDERED: ASPIRIN 81 MG ECTAB PO SCH (09:00)
--- NOTE | 2022-01-10 09:04 | Electrocardiogram Report ---
Test Reason : Blood Pressure : / mmHG Vent. Rate : 073 BPM Atrial Rate : 073 BPM P-R Int : 208 ms QRS Dur : 072 ms QT Int : 426 ms P-R-T Axes : 081 006 054 degrees QTc Int : 469 ms Sinus rhythm with frequent Premature ventricular complexes Low voltage QRS Borderline ECG When compared with ECG of 09-JAN-2022 15:54, Premature ventricular complexes are now Present Confirmed by Rinku Block ([id number]) on 01/10/2022 9:04:22 AM Referred By: REFERRED SELF Confirmed By:Rinku Block
--- NOTE | 2022-01-10 09:39 | Electrocardiogram Report ---
Test Reason : Blood Pressure : / mmHG Vent. Rate : 070 BPM Atrial Rate : 070 BPM P-R Int : 208 ms QRS Dur : 074 ms QT Int : 414 ms P-R-T Axes : 034 -01 061 degrees QTc Int : 447 ms Normal sinus rhythm Poor R wave progression, consider anterior CT vs. lead placement vs. LVH Abnormal ECG When compared with ECG of 03-DEC-2021 19:14, Premature ventricular complexes are no longer Present Confirmed by Rinku Block ([id number]) on 01/10/2022 9:38:59 AM Referred By: REFERRED SELF Confirmed By:Rinku Block
--- NOTE | 2022-01-10 12:46 | Neurology Consultation ---
Date of Consultation January 10, 2022 Assessment & Plan (1) Change in mental status: (2) CVA (cerebral vascular accident): (3) Hypertension: (4) Aphasia: (5) Hyperlipidemia: (6) Hypertension: (7) Cerebrovascular accident: (8) Paroxysmal A-fib: Plan ASSESSMENT and PLAN: 1. Altered mental status Impression: Reportedly, the patient has been having confusion and agitation for last few days at [facility]. Her mental status is back to her baseline at this time. Recommendations: As she was investigated extensively for seizures while she was in [facility], without any new neurological symptoms, there is no indication at this time for another EEG study. Management of metabolic derangements and treatment infections if indicated. Delirium precautions. We will see the patient again as needed. 2. Recent cerebrovascular accident, status post thrombolytic treatment, with hemorrhagic conversion. Impression: The patient received tenecteplase, and after hemorrhagic conversion, she was transferred to [facility]. She was discharged home on aspirin and switching to anticoagulation was recommended in a month. Apparently, she was diagnosed with proximal atrial fibrillation while she was in hospital. Recommendations: As head CT shows no new hemorrhage and resolution no prior intracranial hemorrhaging, the patient can be switched from aspirin to Eliquis 5 mg twice a day for secondary stroke prevention. Management of hypertension, hyperlipidemia as recommended before. 3. Repetitive blinks Impression: Reportedly, the patient was having episodes of rapid stable eye blinks. This was a concern while she was at [facility], and multiple EEGs were negative for epileptogenic etiology. The patient reports that she feels eye irritation with dryness, which triggers episodes of eye blinks to relieve symptoms. Recommendations: Eyedrops for dry eyes might help. If the patient's symptoms persist, then outpatient ophthalmology consultation is suggested. Thank you for the consultation. History of Present Illness Reason for Consultation: AMS, repetitive eye blinks Requesting Physician: Celso Duarte MD Attending Physician: Celso Duarte MD History of Present Illness The patient is a 81-year-old right-handed pleasant female, who was brought to emergency department yesterday, because of confusion, agitation, and repetitive eye movements yesterday. According to family, the patient has been having such symptoms more than usual for last few days. There is no new neurological symptoms. The patient has not had loss of consciousness, tonic-clonic activity, and apparently, she was evaluated with multiple EEGs, while she was on [facility] after she was admitted for hemorrhagic stroke. Currently, she is awake, oriented, without any repetitive eye movements. She reports that when she feels dry eyes with irritation, she blinks to relieve discomfort. Head CT in emergency department showed expected evolution of old left MCA territory hemorrhagic stroke. There is no new finding. The patient was brought to emergency department after having expressive and receptive aphasia, and received IV tenecteplase in emergency department, on December 03, 2021. Unfortunately, she had hemorrhagic conversion, and was transferred to [facility]. Her hospital course was complicated with C. difficile infection which was treated. She was having repetitive eye movements therapy with confusion, and multiple EEGs were reportedly done, which did not show epileptogenic activity. Cardiac monitoring showed paroxysmal atrial fibrillation and they recommended switching to anticoagulation after January [address] shows no new hemorrhage. The patient was transferred to [facility] after hospitalization on 12/23/2021. She was treated for urinary tract infection and C. difficile colitis while she was there. Repeat urinalysis did not show urinary tract infection. I have reviewed the patient's chart including imaging studies and visualized them personally. I have discussed the case with the patient and answered her questions in detail. Allergies Allergy/AdvReac Type Severity Reaction Status Date / Time methylprednisolone Allergy Intermediate USED WHEN Verified 12/03/21 19:24 HAD POSION RAZ AND BROKE OUT IN [facility] Home Medications Medication Instructions Recorded Confirmed Type glucosamine 750 [id number] 1 tab PO DAILY 12/03/21 01/09/22 History no1 644 mg-C 30 mg-omayra 1 mg tablet (Osteo Bi-Flex Triple Strength) latanoprost 0.005 % eye drops 1 drp OPB HS 12/03/21 01/09/22 History losartan 50 mg tablet 50 mg PO DAILY 12/03/21 01/09/22 History magnesium oxide 400 mg PO DAILY 12/03/21 01/09/22 History omega-3 fatty acids 1,000 mg 1,000 mg PO DAILY 12/03/21 01/09/22 History capsule acetaminophen 325 mg tablet 650 mg PO Q4 PRN Pain 01/09/22 01/09/22 History acetaminophen 500 mg tablet 500 mg PO QID 01/09/22 01/09/22 History aspirin 81 mg tablet,delayed 81 mg PO DAILY 01/09/22 01/09/22 History release atorvastatin 40 mg tablet 40 mg PO .WITH DINNER 01/09/22 01/09/22 History cholecalciferol (vitamin D3) 25 25 mcg PO DAILY 01/09/22 01/09/22 History mcg (1,000 unit) tablet (Vitamin D3) cyclosporine 0.05 % eye drops in a 1 drp ophthalmic (eye) Q12H 01/09/22 01/09/22 History dropperette (Restasis) docusate sodium 100 mg capsule 100 mg PO BID 01/09/22 01/09/22 History (Colace) heparin (porcine) 5,000 unit/mL 5,000 unit subcut Q8H 01/09/22 01/09/22 History injection syringe metoprolol succinate 50 mg 50 mg PO DAILY 01/09/22 01/09/22 History tablet,extended release 24 hr ondansetron HCl 4 mg tablet 4 mg PO Q6H PRN Nausea 01/09/22 01/09/22 History Patient History Medical History (Updated 01/10/22 @ 12:39 by Gallo Diaz MD) Aphasia CVA (cerebral vascular accident) Hx of Clostridium difficile infection Hyperlipidemia Hypertension Paroxysmal A-fib Prediabetes Family History Other Family history non-contributory Social History Smoking Status: Unknown if ever smoked Hx Alcohol Use: No Hx Substance Use: No Preferred Language: Vietnamese Communication Ability: Impaired Communication Ability Comment: Expressive aphasia; pt currently confused Credit Card Control Clerk Required: No Beliefs That Will Affect Care: None Current Living Situation: Rehab Current Living Situation Comment: [facility] Feels Safe at Home: Yes Assistive Devices: Glasses and Walker Review of Systems Review of Systems: All systems reviewed & are unremarkable except as noted in HPI & below Physical Exam Physical Exam: General Examination: Constitutional: Well developed person in no acute distress. HENT: Normal exam with inspection. CV: Hearth rhythm is regular currently. Neck: Supple, no carotid bruits. Lungs: Non-labored and comfortable breathing. Abdomen: Soft, non-tender, non-distended. Skin: No rash or ecchymosis. Extremities: No edema or cyanosis NEUROLOGICAL EXAMINATION: Mental Status: Alert and oriented to place, person and year. Cranial Nerves: II-XII are intact. No nystagmus. Funduscopy: Normal looking optic discs. Motor: 5-/5 in all extremities without asymmetry. Tone: Normal without spasticity or rigidity. Sensory: Intact grossly Coordination: No dysmetria with FTN testing. Speech: Expressive aphasia. Limited verbal output. Comprehension is intact. Gait: Not assessed. Musculoskeletal: Normal muscle bulk, no atrophy. Results & Data ([facility]) Vital Signs (Past 12 Hours) Vital Signs Temp Pulse Pulse Resp BP Pulse Ox O2 Del Method 01/10/22 11:15 37.1 C 60 20 109/57 L 96 Room Air 01/10/22 07:49 36.5 C 77 16 193/84 H 95 Room Air 01/10/22 07:29 64 01/10/22 04:00 36.7 C 70 18 127/61 98 Room Air Laboratory Results Laboratory Results - last 24 hr 01/09/22 01/09/22 01/09/22 16:00 16:00 16:00 WBC 9.86 RBC 3.69 L Hgb 11.5 L POC Hgb Hct 36.2 POC Hct MCV 98.1 MCH 31.2 MCHC 31.8 L RDW Std Deviation 52.4 H RDW Coeff of Ralph 14.6 H Plt Count 263 MPV 11.3 Immature Gran % (Auto) 0.7 Neut % (Auto) 54.6 Lymph % (Auto) 26.5 Isabella % (Auto) 10.1 Eos % (Auto) 7.6 Baso % (Auto) 0.5 Neut # (Auto) 5.38 Lymph # (Auto) 2.61 Isabella # (Auto) 1.00 H Eos # (Auto) 0.75 H Baso # (Auto) 0.05 Immature Gran # (Auto) 0.07 H POC Sodium Sodium 140 POC Potassium Potassium 4.3 POC Chloride Chloride 101 Carbon Dioxide 33 H POC Total CO2 Anion Gap 6 POC Anion Gap POC BUN BUN 24 H Creatinine 0.96 POC Creatinine Est Cr Clr Drug Dosing 54.1 Est GFR ( Amer) 64.3 Est GFR (Non-Af Amer) 55.5 BUN/Creatinine Ratio 25.0 H Glucose 114 H POC Glucose (other) Calcium 9.8 POC Ioniz Calcium Shonda Phosphorus 4.0 Magnesium 1.8 Total Bilirubin 0.5 AST 46 H ALT 84 H Alkaline Phosphatase 93 Troponin I High Sens 11.2 D Total Protein 6.9 Albumin 3.8 Globulin 3.1 Albumin/Globulin Ratio 1.2 Lipase 45 TSH 0.741 Urine Color Urine Appearance Urine pH Ur Specific [place] Urine Protein Urine Glucose (UA) Urine Ketones Urine Blood Urine Nitrite Urine Bilirubin Urine Urobilinogen Ur Leukocyte Esterase Nasal Screen MRSA (PCR) SARS-CoV-2, RNA, NAAT 01/09/22 01/09/22 01/09/22 16:03 18:00 18:25 WBC RBC Hgb POC Hgb 12.2 Hct POC Hct 36 L MCV MCH MCHC RDW Std Deviation RDW Coeff of Ralph Plt Count MPV Immature Gran % (Auto) Neut % (Auto) Lymph % (Auto) Isabella % (Auto) Eos % (Auto) Baso % (Auto) Neut # (Auto) Lymph # (Auto) Isabella # (Auto) Eos # (Auto) Baso # (Auto) Immature Gran # (Auto) POC Sodium 141 Sodium POC Potassium 4.3 Potassium POC Chloride 99 L Chloride Carbon Dioxide POC Total CO2 30 Anion Gap POC Anion Gap 17.0 POC BUN 24 H BUN Creatinine POC Creatinine 1.0 Est Cr Clr Drug Dosing Est GFR ( Amer) Est GFR (Non-Af Amer) BUN/Creatinine Ratio Glucose POC Glucose (other) 120 H Calcium POC Ioniz Calcium Shonda 1.23 Phosphorus Magnesium Total Bilirubin AST ALT Alkaline Phosphatase Troponin I High Sens Total Protein Albumin Globulin Albumin/Globulin Ratio Lipase TSH Urine Color Yellow Urine Appearance Clear Urine pH 8.5 H Ur Specific [place] 1.012 Urine Protein Negative Urine Glucose (UA) Negative Urine Ketones Negative Urine Blood Negative Urine Nitrite Negative Urine Bilirubin Negative Urine Urobilinogen Negative Ur Leukocyte Esterase Negative Nasal Screen MRSA (PCR) SARS-CoV-2, RNA, NAAT NEGATIVE 01/10/22 01/10/22 01/10/22 07:48 07:48 09:37 WBC 7.49 RBC 3.32 L Hgb 10.3 L POC Hgb Hct 31.8 L POC Hct MCV 95.8 MCH 31.0 MCHC 32.4 RDW Std Deviation 52.3 H RDW Coeff of Ralph 14.9 H Plt Count 241 MPV 11.3 Immature Gran % (Auto) Neut % (Auto) Lymph % (Auto) Isabella % (Auto) Eos % (Auto) Baso % (Auto) Neut # (Auto) Lymph # (Auto) Isabella # (Auto) Eos # (Auto) Baso # (Auto) Immature Gran # (Auto) POC Sodium Sodium 141 POC Potassium Potassium 4.2 POC Chloride Chloride 107 Carbon Dioxide 29 POC Total CO2 Anion Gap 5 POC Anion Gap POC BUN BUN 18 Creatinine 0.71 POC Creatinine Est Cr Clr Drug Dosing 73.9 Est GFR ( Amer) 92.6 Est GFR (Non-Af Amer) 79.9 BUN/Creatinine Ratio 25.4 H Glucose 100 H POC Glucose (other) Calcium 9.2 POC Ioniz Calcium Shonda Phosphorus 4.0 Magnesium 1.8 Total Bilirubin AST ALT Alkaline Phosphatase Troponin I High Sens Total Protein Albumin Globulin Albumin/Globulin Ratio Lipase TSH Urine Color Urine Appearance Urine pH Ur Specific [place] Urine Protein Urine Glucose (UA) Urine Ketones Urine Blood Urine Nitrite Urine Bilirubin Urine Urobilinogen Ur Leukocyte Esterase Nasal Screen MRSA (PCR) Negative SARS-CoV-2, RNA, NAAT Diagnostic Findings Chest X-Ray 01/09/22 16:05 XR chest 1V portable CLINICAL HISTORY: Chest Pain TECHNIQUE: Single frontal radiograph of the chest was obtained. Comparison: None available at the time of this dictation. FINDINGS: No lines and tubes are seen. The cardiomediastinal silhouette is normal. The lungs are clear. No evidence of pleural effusion or pneumothorax. IMPRESSION: No acute chest disease. ACT 112: Negative or not required by law. Electronically signed by: Ruddy Storm M.D. 01/09/2022 4:[address] 01/09/22 16:37 CT head/brain wo con CLINICAL HISTORY: ams, s/p cva, tpa, ICH Technique: Contiguous axial CT images of the head were acquired from the base of the skull to the vertex without intravenous contrast administration. Images were viewed in brain, subdural and bone windows. Automated dose lowering techniques and/or adjustment according to patient size were utilized for this exam. Comparison: Comparison is made to CTA head and neck 12/03/2021 and MRI brain 12/03/2021 Findings: Redemonstration of edema in the left parieto-occipital cortex with effacement of the sulci. No new hemorrhage is seen at this site. Redemonstration of old encephalomalacia in the right parietal cortex. No significant midline shift or mass effect is seen. Imaged portions of the paranasal sinuses and mastoid air cells are clear. The orbits appear normal. There are no acute fractures of the calvaria or scalp swelling. Impression: Redemonstration of edema in the left parieto-occipital region compatible with history of acute infarct with hemorrhagic transformation. No new hemorrhage is seen. No mass effect or midline shift is noted. No CT evidence of acute infarct is seen. ACT 112: Negative or not required by law. Electronically signed by: Ruddy Storm M.D. 01/09/2022 5:41 PM
--- NOTE | 2022-01-10 15:53 | Hospitalist Progress Note ---
Date of Service January 10, 2022 Assessment & Plan (1) CVA (cerebral vascular accident): (2) Hypertension: (3) Hyperlipidemia: (4) Aphasia: (5) Prediabetes: Plan: per Dr. Garcia's notes with addendum: Patient presents from [facility], after agitation/confusion overnight. Per daughter, she feels that the patient needed attention from nursing staff to attend bathroom and her needs were not met Patient has recent history of CVA, treated with thrombolytics, developed hemorrhage afterward and had prolonged hospitalization at [facility] Repeat CT head in the ED Re-demonstration of edema in the left parieto-occipital region compatible with history of acute infarct with hemorrhagic transformation. No new hemorrhage is seen. No mass effect or midline shift is noted. No CT evidence of acute infarct is seen. Patient w/history of C. difficile while hospitalized and was treated. At [facility] developed also UTI, was treated with Cipro and p.o. Vanco due to history of C. difficile Current UA in the ED is negative Per daughter, diarrhea has resolved Patient afebrile, WBC normal Chest x-ray unremarkable Infectious etiology seems unlikely at this time Patient with aphasia, dysphagia, some right sided weakness, post CVA -At [facility] for PT, seems to be improving overall -With dysphagia, consideration was for PEG tube, however patient continues to improve her p.o. intake Continue aspirin, statin, metoprolol, losartan Continue to monitor on telemetry, monitor BP, monitor mental status -Neurology consult in the morning 01/10 stable overall this morning alert, answering questions denying symptoms calm, cooperative CT head: no acute process Neurology consulted agitation resolved no signs of infection from Cipro? PT/OT ordered History of paroxysmal A. fib -Continue metoprolol for rate control Neurologist consulted re: timing of resuming anticoagulation Prediabetes -Monitor blood sugar levels BSG 100-120 CODE STATUS discussed with the patient and daughter, for now full code. Disposition return to [facility] when stable Admission and Anticipated Discharge Date Admission Date: January 09, 2022 Subjective ff up for confusion, agitation, etc seen resting in bed, sleeping but easily awakened not oriented but calm, cooperative states she feels fine overall no chest pain, dyspnea, palpitations, dizziness no headache, no new focal neuro symptoms no other symptoms Review of Systems Review of Systems: all noted and negative except for above Physical Exam Physical Exam: General- oriented x 0-1, not in distress, speaks in sentences with no effort or accessory muscle use Head- atraumatic Eyes- PERRL, EOMI, anicteric ENT- oropharynx clear Neck- supple, no JVD, no adenopathy, no thyromegaly; carotids +2/2, no bruits appreciated Lungs- clear to auscultation bilaterally, no rales/wheezes Heart- normal rate, regular rhythm; no murmur, no gallop, no rub appreciated Abdomen- normal bowel sounds, nondistended, soft, nontender, no masses or hepatosplenomegaly Extremities- no pretibial edema, no calf tenderness; peripheral pulses intact Neuro- alert, oriented x 3; CN 2-12 grossly intact; motor 5/5 bilaterally;sensation 100% on all extremities; no other gross focal neurologic deficits Skin- warm & dry Results & Data Results & Data ([facility]) Vital Signs (Past 12 Hours) Vital Signs Temp Pulse Pulse Resp BP Pulse Ox O2 Del Method 01/10/22 07:00 58 L 01/10/22 14:56 62 01/10/22 11:15 37.1 C 60 20 109/57 L 96 Room Air 01/10/22 07:49 36.5 C 77 16 193/84 H 95 Room Air 01/10/22 07:29 64 01/10/22 04:00 36.7 C 70 18 127/61 98 Room Air all noted and reviewed including below
[2022-01-10] MEDS: ATORVASTATIN 40 MG TAB PO SCH (16:58)
[2022-01-11] MEDS: METOPROLOL SUCC 50MG EXT REL TAB PO SCH (08:53)
[2022-01-11] MEDS: LOSARTAN POTASSIUM 50 MG TAB PO SCH (08:53)
[2022-01-11] MEDS ORDERED: APIXABAN 2.5 MG TAB PO SCH (09:00)
[2022-01-11] MEDS: APIXABAN 5 MG TABLET PO SCH ×2 (10:03→19:51)
--- NOTE | 2022-01-11 11:24 | Hospitalist Progress Note ---
Date of Service January 11, 2022 Assessment & Plan (1) CVA (cerebral vascular accident): (2) Hypertension: (3) Hyperlipidemia: (4) Aphasia: (5) Prediabetes: Plan: per Dr. Garcia's notes with addendum: Patient presents from [facility], after agitation/confusion overnight. Per daughter, she feels that the patient needed attention from nursing staff to attend bathroom and her needs were not met Patient has recent history of CVA, treated with thrombolytics, developed hemorrhage afterward and had prolonged hospitalization at [facility] Repeat CT head in the ED Re-demonstration of edema in the left parieto-occipital region compatible with history of acute infarct with hemorrhagic transformation. No new hemorrhage is seen. No mass effect or midline shift is noted. No CT evidence of acute infarct is seen. Patient w/history of C. difficile while hospitalized and was treated. At [facility] developed also UTI, was treated with Cipro and p.o. Vanco due to history of C. difficile Current UA in the ED is negative Per daughter, diarrhea has resolved Patient afebrile, WBC normal Chest x-ray unremarkable Infectious etiology seems unlikely at this time Patient with aphasia, dysphagia, some right sided weakness, post CVA -At [facility] for PT, seems to be improving overall -With dysphagia, consideration was for PEG tube, however patient continues to improve her p.o. intake Continue aspirin, statin, metoprolol, losartan Continue to monitor on telemetry, monitor BP, monitor mental status -Neurology consult in the morning 01/11 remains stable overall this morning alert, conversant, but has expressive aphasia no chest pain, dyspnea, palpitations, dizziness denies focal weakness/numbness no other symptoms discussed with patient's daughter Vivian over the phone- patient back to baseline post stroke CT head: Redemonstration of edema in the left parieto-occipital region compatible with history of acute infarct with hemorrhagic transformation. No new hemorrhage is seen. No mass effect or midline shift is noted. No CT evidence of acute infarct is seen. Neurology consulted- Dr. Diaz: recommend to transition fom Aspirin to Eliquis 5mg BID no indication to repeat EEG as patient already had work up in [facility] agitation resolved no signs of infection from Cipro? continue PT/OT at [facility] History of paroxysmal A. fib -Continue metoprolol for rate control transitioned from Aspirin to Eliquis per Neurology recommendations Prediabetes -Monitor blood sugar levels BSG 100-120 CODE STATUS discussed with the patient and daughter, for now full code. Disposition return to [facility] when accepted ff up with PCP, Neurologist, Inventory Assistant as scheduled Admission and Anticipated Discharge Date Admission Date: January 09, 2022 Subjective ff up for altered mental status, etc seen resting in bed, comfortable in good spirits smiling conversant but mostly confused states she feels fine overall no new weakness/numbness denies problems swallowing denies any other symptoms Review of Systems Review of Systems: all noted and negative except for above Physical Exam Physical Exam: General- not oriented, not in distress, speaks in sentences with no effort or accessory muscle use Eyes- anicteric Neck- no JVD Lungs- clear BS BL, no rales/wheezes Heart- normal rate, regular rhythm; no murmurs Abdomen- normal bowel sounds, nondistended, soft, nontender Extremities- no pretibial edema, no calf tenderness Neuro- alert, oriented x 3; (+) expressive aphasia, no gross focal neurologic deficits Skin- warm & dry Results & Data Results & Data ([facility]) Vital Signs (Past 12 Hours) Vital Signs Temp Pulse Pulse Resp BP Pulse Ox O2 Del Method 01/11/22 07:20 60 01/11/22 06:29 36.8 C 71 18 114/67 96 Room Air 01/11/22 02:59 36.9 C 74 18 131/66 92 Room Air all noted and reviewed including below
--- NOTE | 2022-01-11 11:56 | Discharge Summary ---
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 She was treated conservatively, never required craniotomy for evacuation of bleeding. She had prolonged hospitalization due to hypoactive delirium, several EEGs did not show seizure activity, she completed 7 days of Keppra. Her hospital course was complicated by C. difficile infection, which was treated. She was then transferred to [facility] after her hospitalization (12/23/2021). It was recommended she continues on aspirin, however this should stop when anticoagulation is started. She was scheduled for follow-up CT of the head for January 01, 2022 to assess for safety of starting anticoagulation. Her blood pressure to be controlled with metoprolol and losartan. Seems that she has been improving, strength huynh, as well as with her dysphagia at [facility]. Able to have some improved p.o. intake. She developed UTI, and was treated at [facility] with Cipro, p.o. Vanco was also provided given her recent history of C. difficile. Now presents in ED due to agitation/confusion. Daughter is present at the bedside, she reports that when patient has urge to urinate, she may try to go by herself to the bathroom. She gets agitated when she does not get prompt nursing staff attention. In the ED CT head was obtained, does not show any new stroke/new hemorrhage. + previously showed edema. No midline shift. Currently patient is lying in bed, in no acute distress. Denies any complaints, specifically denies any fevers, chills, chest pain, palpitations, shortness of breath. Denies abdominal pain, nausea vomiting. Denies any headache. Admission Exam Per Admitting Provider Constitutional: WD/WN, vitals as above (elderly F in NAD) Eyes: nonicteric sclera, appropriate eye movement- able to follow object ENMT: external ear and nose normal, oropharynx normal Neck: supple Respiratory: normal respiratory effort, lungs clear to auscultation Cardiovascular: RRR, no murmur, no edema Chest (Breasts): Chest: normal inspection of chest Gastrointestinal (Abdomen): normal bowel sounds, soft, nontender, no hepatosplenomegaly Musculoskeletal: moves all extremities, some weakness on R side noted (post CVA) Skin: no rashes, warm and dry Neurologic: awake and alert, able to answer some questions appropriately(aphasia post CVA), moves extremities , + some right sided weakness (post CVA) Psychiatric: A+Ox3, euthymic affect Genitourinary: no CVA tenderness Lymphatic: + lymphedema (minimal bl LE) Principal Diagnosis EPISODE OF AGITATION FROM CIPROFLOXACIN? INFECTION RULED OUT Discharge Exam N General- not oriented, not in distress, speaks in sentences with no effort or accessory muscle use Eyes- anicteric Neck- no JVD Lungs- clear BS BL, no rales/wheezes Heart- normal rate, regular rhythm; no murmurs Abdomen- normal bowel sounds, nondistended, soft, nontender Extremities- no pretibial edema, no calf tenderness Neuro- alert, oriented x 3; (+) expressive aphasia, no gross focal neurologic deficits Skin- warm & dry Discharge Data Allergies Allergy/AdvReac Type Severity Reaction Status Date / Time methylprednisolone Allergy Intermediate USED WHEN Verified 12/03/21 19:24 HAD POSION RAZ AND BROKE OUT IN HIVES Consultations 01/09/22 18:30 ED Decision to Admit Stat 01/09/22 19:54 Consult Neurology Routine Ordered Studies 01/09/22 16:37 CT head/brain wo con Stat Comparison: Comparison is made to CTA head and neck 12/03/2021 and MRI brain 12/03/2021 Findings: Redemonstration of edema in the left parieto-occipital cortex with effacement of the sulci. No new hemorrhage is seen at this site. Redemonstration of old encephalomalacia in the right parietal cortex. No significant midline shift or mass effect is seen. Imaged portions of the paranasal sinuses and mastoid air cells are clear. The orbits appear normal. There are no acute fractures of the calvaria or scalp swelling. Impression: Redemonstration of edema in the left parieto-occipital region compatible with history of acute infarct with hemorrhagic transformation. No new hemorrhage is seen. No mass effect or midline shift is noted. No CT evidence of acute infarct is seen. ACT 112: Negative or not required by law. Hospital Course (1) CVA (cerebral vascular accident): (2) Hypertension: (3) Hyperlipidemia: (4) Aphasia: (5) Prediabetes: per Dr. Garcia's notes with addendum: Patient presents from [facility], after agitation/confusion overnight. Per daughter, she feels that the patient needed attention from nursing staff to attend bathroom and her needs were not met Patient has recent history of CVA, treated with thrombolytics, developed hemorrhage afterward and had prolonged hospitalization at [facility] Continue to monitor on telemetry, monitor BP, monitor mental status -Neurology consult in the morning 01/12 remains stable overall this morning alert, conversant, but has expressive aphasia CT head: Redemonstration of edema in the left parieto-occipital region compatible with history of acute infarct with hemorrhagic transformation. No new hemorrhage is seen. No mass effect or midline shift is noted. No CT evidence of acute infarct is seen. Neurology consulted- Dr. Diaz: recommend to transition fom Aspirin to Eliquis 5mg BID no indication to repeat EEG as patient already had work up in [facility] agitation resolved no signs of infection from Cipro? Continue statin, metoprolol, losartan Awaiting acceptance to [facility] Status post mechanical fall Found by staff assistant to be sitting on the floor this morning Denies any pain Hip and pelvic x-ray: No fractures Continue to monitor History of paroxysmal A. fib -Continue metoprolol for rate control transitioned from Aspirin to Eliquis per Neurology recommendations Prediabetes -Monitor blood sugar levels BSG 100 CODE STATUS discussed with the patient and daughter, for now full code. Disposition return to [facility] when accepted ff up with PCP, Neurologist, Guest Request Runner as scheduled Total Time Total Time Spent Total Time Spent (In Minutes): >30 MINUTES Discharge Plan Discharge Items Reason For Visit: AMS Follow-up/Referrals: Jenna Acosta MD [Primary Care Provider] - Medications and DC Order Prescriptions: No Action atorvastatin 40 mg Tablet 40 mg PO .WITH DINNER metoprolol succinate 50 mg Tablet Extended Release 24 Hr 50 mg PO DAILY ondansetron HCl 4 mg Tablet 4 mg PO Q6H PRN (Reason: Nausea) aspirin [Aspirin Low-Strength] 81 mg Tablet,Delayed Release (Dr/Ec) 81 mg PO DAILY cholecalciferol (vitamin D3) [Vitamin D3] 25 mcg (1,000 unit) Tablet 25 mcg PO DAILY acetaminophen 325 mg Tablet 650 mg PO Q4 PRN (Reason: Pain) acetaminophen 500 mg Tablet 500 mg PO QID docusate sodium [Colace] 100 mg Capsule 100 mg PO BID heparin (porcine) 5,000 unit/mL Syringe 5,000 unit SUBCUT Q8H cyclosporine [Restasis] 0.05 % Dropperette 1 drp OPHTHALMIC (EYE) Q12H losartan 50 mg tablet 50 mg PO DAILY latanoprost 0.005 % drops 1 drp OPB HS Osteo Bi-Flex Triple Strength 750 mg-644 mg- 30 mg-1 mg Tablet 1 tab PO DAILY magnesium oxide 400 mg magnesium Tablet 400 mg PO DAILY omega-3 fatty acids 1,000 mg Capsule 1,000 mg PO DAILY Admission Data Admit Date/Time: 01/09/22 19:54 Attending Provider: Celso Duarte Admit Provider: Mark Garcia Primary Care Provider: Jnena Acosta Other Providers: Adiel Salgado ; Gallo Diaz ; Mark Garcia ; [facility]
[2022-01-11] MEDS: ATORVASTATIN 40 MG TAB PO SCH (18:02)
[2022-01-12] MEDS: LOSARTAN POTASSIUM 50 MG TAB PO SCH (08:05)
[2022-01-12] MEDS: METOPROLOL SUCC 50MG EXT REL TAB PO SCH (08:05)
[2022-01-12] MEDS: APIXABAN 5 MG TABLET PO SCH ×2 (08:05→20:58)
--- NOTE | 2022-01-12 14:56 | XRay Report ---
XR hip HOMERO 2v w pelvis CLINICAL HISTORY: S/P FALL, R/O FRACTURES COMPARISON STUDY: No previous studies for comparison. FINDINGS: Sacroiliac joints and symphysis pubis are intact. No acute fracture is identified within th e pelvis or hips. There is moderate bilateral hip osteoarthritis with joint space narrowing and osteo phytosis. No evidence for avascular necrosis. IMPRESSION: 1. No acute fracture within the pelvis or hips. 2. Moderate bilateral hip osteoarthritis. ACT 112: Negative or not required by law. Electronically signed by: Gino Barrera M.D. 01/12/2022 2:55 PM
[2022-01-12] MEDS: ATORVASTATIN 40 MG TAB PO SCH (16:33)
[2022-01-13] MEDS: LOSARTAN POTASSIUM 50 MG TAB PO SCH (07:52)
[2022-01-13] MEDS: APIXABAN 5 MG TABLET PO SCH (07:52)
[2022-01-13] MEDS: METOPROLOL SUCC 50MG EXT REL TAB PO SCH (07:53)
[2022-01-13] MEDS: ATORVASTATIN 40 MG TAB PO SCH (16:27)
--- NOTE | 2022-01-13 16:28 | Hospitalist Progress Note ---
Date of Service January 13, 2022 Assessment & Plan (1) Episode of confusion: Plan: per Dr. Garcia's notes with addendum: Patient presents from [facility], after agitation/confusion overnight. Per daughter, she feels that the patient needed attention from nursing staff to attend bathroom and her needs were not met Patient has recent history of CVA, treated with thrombolytics, developed hemorrhage afterward and had prolonged hospitalization at [facility] Patient w/history of C. difficile while hospitalized and was treated. At inpatient rehab, Patient with aphasia, dysphagia, some right sided weakness, post CVA -At [facility] for PT, seems to be improving overall -With dysphagia, consideration was for PEG tube, however patient continues to improve her p.o. intake -developed also UTI, was treated with Cipro and p.o. Vanco due to history of C. difficile Repeat CT head on admission: Re-demonstration of edema in the left parieto-occipital region compatible with history of acute infarct with hemorrhagic transformation. No new hemorrhage is seen. No mass effect or midline shift is noted. No CT evidence of acute infarct is seen. 01/13 remains stable overall alert, conversant, but has expressive aphasia- present since after the acute CVA per daughter no chest pain, dyspnea, palpitations, dizziness denies focal weakness/numbness no other symptoms discussed with patient's daughter Vivian over the phone- patient back to baseline post stroke Neurology consulted- Dr. Diaz: recommend patient can transition fom Aspirin to Eliquis 5mg BID no indication to repeat EEG as patient already had work up in [facility] agitation resolved no signs of infection from Cipro? continue PT/OT BP control risk factor control History of paroxysmal A. fib -Continue metoprolol for rate control transitioned from Aspirin to Eliquis per Neurology recommendations Prediabetes -Monitor blood sugar levels CODE STATUS discussed with the patient and daughter, for now full code. Disposition transition to SNF ff up with PCP, Neurologist, Home Care Attendant as scheduled Admission and Anticipated Discharge Date Admission Date: January 09, 2022 Subjective ff up for episode of confusion, etc seen resting in bed, comfortable in good spirits states she feels fine overall has some expressive aphasia- unchanged no chest pain, dyspnea, palpitations, dizziness no other symptoms Review of Systems Review of Systems: all noted and negative except for above Physical Exam Physical Exam: General- oriented x 1-2, not in distress, speaks in sentences with no effort or accessory muscle use Eyes- anicteric Neck- no JVD Lungs- clear BS bilaterally, no rales/wheezes Heart- normal rate, regular rhythm; no murmurs Abdomen- normal bowel sounds, nondistended, soft, nontender Extremities- no pretibial edema, no calf tenderness Neuro- alert, oriented x 1-2; (+) expressive aphasia, no gross focal neurologic deficits Skin- warm & dry Results & Data Results & Data ([facility]) Vital Signs (Past 12 Hours) Vital Signs Temp Pulse Pulse Resp BP Pulse Ox O2 Del Method 01/13/22 15:18 62 01/13/22 11:47 36.5 C 56 L 20 108/69 90 Room Air 01/13/22 07:00 66 01/13/22 10:34 Room Air 01/13/22 08:16 36.8 C 68 16 114/72 95 Room Air 01/13/22 07:51 36.9 C 72 18 134/63 96 Room Air all noted and reviewed including below
--- NOTE | 2022-01-13 16:29 | Discharge Summary ---
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 She was treated conservatively, never required craniotomy for evacuation of bleeding. She had prolonged hospitalization due to hypoactive delirium, several EEGs did not show seizure activity, she completed 7 days of Keppra. Her hospital course was complicated by C. difficile infection, which was treated. She was then transferred to [facility] after her hospitalization (12/23/2021). It was recommended she continues on aspirin, however this should stop when anticoagulation is started. She was scheduled for follow-up CT of the head for January 01, 2022 to assess for safety of starting anticoagulation. Her blood pressure to be controlled with metoprolol and losartan. Seems that she has been improving, strength huynh, as well as with her dysphagia at [facility]. Able to have some improved p.o. intake. She developed UTI, and was treated at [facility] with Cipro, p.o. Vanco was also provided given her recent history of C. difficile. Now presents in ED due to agitation/confusion. Daughter is present at the bedside, she reports that when patient has urge to urinate, she may try to go by herself to the bathroom. She gets agitated when she does not get prompt nursing staff attention. In the ED CT head was obtained, does not show any new stroke/new hemorrhage. + previously showed edema. No midline shift. Currently patient is lying in bed, in no acute distress. Denies any complaints, specifically denies any fevers, chills, chest pain, palpitations, shortness of breath. Denies abdominal pain, nausea vomiting. Denies any headache. Admission Exam Per Admitting Provider Constitutional: WD/WN, vitals as above (elderly F in NAD) Eyes: nonicteric sclera, appropriate eye movement- able to follow object ENMT: external ear and nose normal, oropharynx normal Neck: supple Respiratory: normal respiratory effort, lungs clear to auscultation Cardiovascular: RRR, no murmur, no edema Chest (Breasts): Chest: normal inspection of chest Gastrointestinal (Abdomen): normal bowel sounds, soft, nontender, no hepatosplenomegaly Musculoskeletal: moves all extremities, some weakness on R side noted (post CVA) Skin: no rashes, warm and dry Neurologic: awake and alert, able to answer some questions appropriately(aphasia post CVA), moves extremities , + some right sided weakness (post CVA) Psychiatric: A+Ox3, euthymic affect Genitourinary: no CVA tenderness Lymphatic: + lymphedema (minimal bl LE) Principal Diagnosis EPISODE OF CONFUSION INFECTION RULED OUT POSSIBLY FROM CIPROFLOXACIN Discharge Exam General- oriented x 1-2, not in distress, speaks in sentences with no effort or accessory muscle use Eyes- anicteric Neck- no JVD Lungs- clear BS bilaterally, no rales/wheezes Heart- normal rate, regular rhythm; no murmurs Abdomen- normal bowel sounds, nondistended, soft, nontender Extremities- no pretibial edema, no calf tenderness Neuro- alert, oriented x 1-2; (+) expressive aphasia, no gross focal neurologic deficits Skin- warm & dry Discharge Data Allergies Allergy/AdvReac Type Severity Reaction Status Date / Time methylprednisolone Allergy Intermediate USED WHEN Verified 12/03/21 19:24 HAD POSION RAZ AND BROKE OUT IN HIVES Consultations 01/09/22 18:30 ED Decision to Admit Stat 01/09/22 19:54 Consult Neurology Routine Ordered Studies 01/09/22 16:37 CT head/brain wo con Stat Comparison: Comparison is made to CTA head and neck 12/03/2021 and MRI brain 12/03/2021 Findings: Redemonstration of edema in the left parieto-occipital cortex with effacement of the sulci. No new hemorrhage is seen at this site. Redemonstration of old encephalomalacia in the right parietal cortex. No significant midline shift or mass effect is seen. Imaged portions of the paranasal sinuses and mastoid air cells are clear. The orbits appear normal. There are no acute fractures of the calvaria or scalp swelling. Impression: Redemonstration of edema in the left parieto-occipital region compatible with history of acute infarct with hemorrhagic transformation. No new hemorrhage is seen. No mass effect or midline shift is noted. No CT evidence of acute infarct is seen. ACT 112: Negative or not required by law. Electronically signed by: Ruddy Storm M.D. 01/09/2022 5:41 PM Hospital Course (1) Episode of confusion: per Dr. Garcia's notes with addendum: Patient presents from [facility], after agitation/confusion overnight. Per daughter, she feels that the patient needed attention from nursing staff to attend bathroom and her needs were not met Patient has recent history of CVA, treated with thrombolytics, developed hemorrhage afterward and had prolonged hospitalization at [facility] Patient w/history of C. difficile while hospitalized and was treated. At inpatient rehab, Patient with aphasia, dysphagia, some right sided weakness, post CVA -At [facility] for PT, seems to be improving overall -With dysphagia, consideration was for PEG tube, however patient continues to improve her p.o. intake -developed also UTI, was treated with Cipro and p.o. Vanco due to history of C. difficile Repeat CT head on admission: Re-demonstration of edema in the left parieto-occipital region compatible with history of acute infarct with hemorrhagic transformation. No new hemorrhage is seen. No mass effect or midline shift is noted. No CT evidence of acute infarct is seen. 01/13 remains stable overall alert, conversant, but has expressive aphasia- present since after the acute CVA per daughter no chest pain, dyspnea, palpitations, dizziness denies focal weakness/numbness no other symptoms discussed with patient's daughter Vivian over the phone- patient back to baseline post stroke Neurology consulted- Dr. Diaz: recommend patient can transition fom Aspirin to Eliquis 5mg BID no indication to repeat EEG as patient already had work up in [facility] agitation resolved no signs of infection from Cipro? continue PT/OT BP control risk factor control History of paroxysmal A. fib -Continue metoprolol for rate control transitioned from Aspirin to Eliquis per Neurology recommendations Prediabetes -Monitor blood sugar levels CODE STATUS discussed with the patient and daughter, for now full code. Disposition transition to SNF ff up with PCP, Neurologist, Seismograph Chief as scheduled Total Time Total Time Spent Total Time Spent (In Minutes): >30 MINUTES Discharge Plan Discharge Items Patient Disposition: Transfer [facility] Reason For Visit: AMS Discharge Diagnosis: EPISODE OF CONFUSION Activity: Resume your previous activity Activity Comment: CONTINUE PT/OT, FALL PRECAUTIONS PLEASE Non-emergency contact: Primary Care Provider Call non-emergency contact if: you have any medication questions, your symptoms worsen and you have a fever Follow-up/Referrals: Jenna Acosta MD [Primary Care Provider] - Diet: Heart Healthy Addtl Attending Provider Instructions: PLEASE REFER TO ACCOMPANYING HOSPITAL DISCHARGE SUMMARY. Pending Studies at Discharge: No Stand-Alone Forms: My [facility] Skilled Items Patient informed of condition?: Yes DNR: No Discharge Level of Care: Skilled Communicable Disease: No Discharge Prognosis: Stable Lines: None Urinary Catheter: No Medications and DC Order Prescriptions: New Eliquis 5 mg Tablet 5 mg PO BID 30 Days Qty: 60 1RF Continued atorvastatin 40 mg Tablet 40 mg PO .WITH DINNER metoprolol succinate 50 mg Tablet Extended Release 24 Hr 50 mg PO DAILY ondansetron HCl 4 mg Tablet 4 mg PO Q6H PRN (Reason: Nausea) cholecalciferol (vitamin D3) [Vitamin D3] 25 mcg (1,000 unit) Tablet 25 mcg PO DAILY acetaminophen 325 mg Tablet 650 mg PO Q4 PRN (Reason: Pain) docusate sodium [Colace] 100 mg Capsule 100 mg PO BID cyclosporine [Restasis] 0.05 % Dropperette 1 drp OPHTHALMIC (EYE) Q12H losartan 50 mg tablet 50 mg PO DAILY latanoprost 0.005 % drops 1 drp OPB HS Osteo Bi-Flex Triple Strength 750 mg-644 mg- 30 mg-1 mg Tablet 1 tab PO DAILY magnesium oxide 400 mg magnesium Tablet 400 mg PO DAILY omega-3 fatty acids 1,000 mg Capsule 1,000 mg PO DAILY Discontinued aspirin [Aspirin Low-Strength] 81 mg Tablet,Delayed Release (Dr/Ec) 81 mg PO DAILY acetaminophen 500 mg Tablet 500 mg PO QID heparin (porcine) 5,000 unit/mL Syringe 5,000 unit SUBCUT Q8H Discharge Orders: Discharge Order (Routine); Ordered 01/13/22 Ordered By: Celso Duarte Admission Data Admit Date/Time: 01/09/22 19:54 Attending Provider: Celso Duarte Admit Provider: Mark Garcia Primary Care Provider: Jenna Acosta Other Providers: Adiel Salgado ; Gallo Diaz ; Mark Garcia ; [facility]
== END 2022-01-13 17:25 | DRG 948 ==
LOC: ED 15:48 → 2N 19:54 → SUATTDRO 19:54 → 2N 22:35

== ENCOUNTER 2022-06-19 09:08 | Observation (INO) ==
[2022-06-19] MEDS ORDERED: ACETAMINOPHEN 500 MG TAB PO STA (09:29)
[2022-06-19] MEDS ORDERED: SODIUM CHLORIDE 0.9% 500 ML IV SCH (09:30)
[2022-06-19] MEDS ORDERED: SODIUM CHLORIDE 0.9% 1000ML 1,000 ML IV SCH (09:30)
--- NOTE | 2022-06-19 09:57 | CT Scan Report ---
CT head/brain wo con CLINICAL HISTORY: 82 years-old Female with headache, AMS. Acute headache with altered mental status TECHNIQUE: Multiple axial CT images of the head were obtained without contrast. A dose lowering tech nique was utilized adhering to the principles of ALARA. CT DOSE: 614.27 mGy.cm COMPARISON: 01/09/2022 FINDINGS: No acute intracranial hemorrhage, midline shift, intracranial mass, hydrocephalus, territorial ischem ia or abnormal extra-axial collection. Involutional changes with chronic microvascular ischemic disea se. Encephalomalacia related to chronic parietal infarcts. Mild ex vacuo ventriculomegaly the left la teral ventricle. The calvarium is intact. Prior bilateral lens repair. The paranasal sinuses, mastoid air cells, and m iddle ear cavities are clear. IMPRESSION: No acute intracranial abnormality. ACT 112: Negative or not required by law. The above report was generated using voice recognition software. It may contain grammatical, syntax o r spelling errors. Electronically signed by: Arash To M.D. 06/19/2022 9:56 AM
[2022-06-19 10:19] LABS: Basophils # (auto) 0.06 K/uL (0-0.2); Eosinophils # (auto) 0.29 K/uL (0-0.50); Eosinophils % (auto) 4.8 %; Hematocrit (blood only) 40.6 % (37.0-47.0); Hemoglobin 13.2 g/dl (12.0-16.0); Immature Granulocytes # (auto) 0.01 K/uL (0.01-0.20); Immature Granulocytes % (auto) 0.2 %; Lymphocytes # (auto) 1.91 K/uL (1.2-3.4); Lymphocytes % (auto) 31.6 %; Mean Corpuscular Hemoglobin 29.6 pg (25.0-34.0); Mean Corpuscular Hgb Conc 32.5 g/dL (32.0-36.0); Mean Platelet Volume 12.6 fL (9.4-12.4); Monocytes % (auto) 8.3 %; Neutrophils # (auto) 3.27 K/uL (1.40-6.50); Neutrophils % (auto) 54.1 %; Platelet Count 235 K/uL (130-400); RDW Coefficient of Variation 13.2 % (11.5-14.5); RDW Standard Deviation 44.5 fL (36.4-46.3); Red Blood Count 4.46 M/uL (4.20-5.40); White Blood Count 6.04 K/ul (4.8-10.8)
[2022-06-19 10:50] LABS: INR 1.1 (0.9-1.1); Prothrombin Time 11.3 Seconds (9.0-12.0)
[2022-06-19 10:55] LABS: Troponin I High Sensitivity 8.2 pg/ml (0-14)
[2022-06-19 11:34] LABS: Adenovirus PCR Not Detected (NotDetected); Bordetella parapertussis PCR Not Detected (NotDetected); Bordetella pertussis PCR Not Detected (NotDetected); Chlamydia pneumoniae PCR Not Detected (NotDetected); Coronavirus 229E PCR Not Detected (NotDetected); Coronavirus CoV-2 (COVID19)PCR Not Detected (NotDetected); Coronavirus HKU1 PCR Not Detected (NotDetected); Coronavirus NL63 PCR Not Detected (NotDetected); Coronavirus OC43PCR Not Detected (NotDetected); Human Metapneumovirus PCR Not Detected (NotDetected); Influenza A PCR Not Detected (NotDetected); Influenza B PCR Not Detected (NotDetected); Mycoplasma pneumoniae PCR Not Detected (NotDetected); Parainfluenza Virus 1 PCR Not Detected (NotDetected); Parainfluenza Virus 2 PCR Not Detected (NotDetected); Parainfluenza Virus 3 PCR Not Detected (NotDetected); Parainfluenza Virus 4 PCR Not Detected (NotDetected); Respiratory Syncytial VirusPCR Not Detected (NotDetected); Rhinovirus/Enterovirus PCR Not Detected (NotDetected)
--- NOTE | 2022-06-19 11:56 | Emergency Department Note ---
Impression & Plan Chronic anticoagulation, Acute UTI (urinary tract infection), Acute metabolic encephalopathy ED Provider Note INFORMANT: Patient and daughter ED PROVIDER(S): Christian Brower MD CHIEF COMPLAINT: Altered mental status PLAN: Disposition: Admitted Condition: Good Outpatient prescription management: none Referral: None MEDICAL DECISION MAKING: Patient presented because of altered mental status and confusion. She was doing relatively well on examination with no focal findings except for her baseline expressive aphasia. The patient had blood work obtained. CT imaging was ordered. She was gently hydrated with normal saline. She was given Tylenol. The patient had a negative head CT. She had no meningeal findings and her headache had resolved prior to the Tylenol administration. Bio fire testing was performed and she was found to have no significant respiratory pathogens. Blood work was unremarkable as was her ECG. Patient was eventually able to give a urine sample. This was very concerning for infection. I believe the patient has a metabolic encephalopathy secondary to acute UTI. She was given IV Rocephin. Further management in the hospital was deemed appropriate. I discussed this with the patient and family and they were in agreement. [facility] I discussed the case with Chloé Cervantes PA-C. Patient was evaluated by the team in the ER and admitted. After review of the information above and other included data, I feel the patient requires admission for further management. Triage Nursing notes reviewed and agree them. Vital Signs: reviewed and remarkable for hypertension Prior /Outside records reviewed: none Differential diagnosis: Infection, hypoglycemia, electrolyte abnormalities, overdose, toxicologic, cardiac sources, intracerebral event, neurologic, trauma, as well as other pathologies. Diagnostics, as interpreted by me: ECG: Twelve-lead ECG reveals atrial fibrillation at [address] No ST elevation. Cardiac Monitoring: Cardiac monitoring ordered by me: The patient was placed on continuous cardiac monitoring and observed. It revealed atrial fibrillation at 71 bpm.. Medical decision rules: none Imaging studies: Head CT: A noncontrast CT scan of the head was performed and was negative for tumor, fracture, intracranial hemorrhage, or other acute pathology. HPI: The patient is a 82year old female who presents to the Emergency Room with complaints of confusion. This started this morning per the daughter and is improved. The patient also notes the following associated symptoms, mild headache that was initially rated as a 6, then 2 when she was in the exam room and currently 0.Daughter was concerned as she has a history of stroke, expressive aphasia, and is anticoagulated. Daughter did check on her this morning to give her her morning medications and noted that she was not her normal self. She seemed to be generally weak. The patient has taken no medica tion for relieving factors. Patient denies any trauma. Family has been sick with respiratory illness recently. Patient has had somewhat of a runny nose but no cough or shortness of breath. Pt denies LOC, fevers, chills, diaphoresis, visual changes, neck pain, chest pain, breathing difficulties, nausea, vomiting, abdominal pain, back pain, melena, hematochezia, urinary symptoms, numbness, focal weakness, lymphadenopathy, rash, or other complaints. PAST MEDICAL HISTORY: See Below, stroke, anticoagulation, hypertension, paroxysmal atrial fibrillation PAST SURGICAL HISTORY: See Below, SOCIAL HISTORY: See Below, retired HOME MEDICATIONS: See Below ALLERGIES: See Below VITALS: See Below PHYSICAL EXAMINATION: GENERAL: Awake, alert, well-appearing, in no distress HENT: Normocephalic, atraumatic. Oropharynx unremarkable. EYES: Normal conjunctiva. Sclera non-icteric. NECK: Inspection normal. Non-tender. Supple. No nuchal rigidity. FROM. No masses. RESPIRATORY: Clear to auscultation. No wheezes. No rales. Normal respiratory effort. CARDIAC: Normal rate. Normal rhythm. No murmurs. No rubs. Extremities warm and well perfused. Pulses equal. No JVD. GI: Soft, non-distended. No tenderness to palpation. No rebound or guarding. No masses. RECTAL: Deferred. MUSCULOSKELETAL: Atraumatic. Chest examination reveals no tenderness. The back is symmetrical on inspection without obvious abnormality. There is no CVA tenderness to palpation. No joint edema. LOWER EXTREMITIES: Calves are equal size bilaterally and non-tender. No edema. No discoloration. NEURO: Mildly confused sensorium. No focal sensory or motor deficits noted. Cranial nerves II through XII intact. There is expressive aphasia present. Patient is able to communicate relatively well with direct questioning. No drift. Normal rapid alternating movements. SKIN: No rash or jaundice noted. 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 Beliefs That Will Affect Care: None marital status: Current Living Situation: Rehab Current Living Situation Comment: [facility] Feels Safe at Home: Yes Assistive Devices: None Allergies Allergies Allergy/AdvReac Type Severity Reaction Status Date / Time methylprednisolone Allergy Intermediate USED WHEN Verified 12/03/21 19:24 HAD POSION RAZ AND BROKE OUT IN [employer] Home Meds Home Medications Medication Instructions Recorded Confirmed glucosamine 750 [id number] 1 tab PO DAILY 12/03/21 01/09/22 no1 644 mg-C 30 mg-omayra 1 mg tablet (Osteo Bi-Flex Triple Strength) latanoprost 0.005 % eye drops 1 drp OPB HS 12/03/21 01/09/22 losartan 50 mg tablet 50 mg PO DAILY 12/03/21 01/09/22 magnesium oxide 400 mg PO DAILY 12/03/21 01/09/22 omega-3 fatty acids 1,000 mg 1,000 mg PO DAILY 12/03/21 01/09/22 capsule acetaminophen 325 mg tablet 650 mg PO Q4 PRN Pain 01/09/22 01/09/22 atorvastatin 40 mg tablet 40 mg PO .WITH DINNER 01/09/22 01/09/22 cholecalciferol (vitamin D3) 25 25 mcg PO DAILY 01/09/22 01/09/22 mcg (1,000 unit) tablet (Vitamin D3) cyclosporine 0.05 % eye drops in a 1 drp ophthalmic (eye) Q12H 01/09/22 01/09/22 dropperette (Restasis) docusate sodium 100 mg capsule 100 mg PO BID 01/09/22 01/09/22 (Colace) metoprolol succinate 50 mg 50 mg PO DAILY 01/09/22 01/09/22 tablet,extended release 24 hr ondansetron HCl 4 mg tablet 4 mg PO Q6H PRN Nausea 01/09/22 01/09/22 Previous Rx's Medication Instructions Recorded apixaban 5 mg tablet (Eliquis) 5 mg PO BID 30 days #60 tabs 01/13/22 Results & Data (ED) Vital Signs Vital Signs - 24 hr 06/19/22 09:14 06/19/22 09:58 06/19/22 10:00 Temperature 36.8 C Temperature Source Temporal Artery Scan Pulse Rate 80 72 82 Pulse Rate from SpO2 Sensor Respiratory Rate 20 14 16 Respiratory Effort / Characteristics Non-Labored Spontaneous Respiratory Depth Normal Respiratory Pattern Regular Blood Pressure 135/64 Blood Pressure Mean 87 Pulse Oximetry 94 Oxygen Delivery Method Room Air Room Air Room Air Sepsis Recent Fever Within 48 Hours No Sepsis New/Unexplained Change in Mental Status No Sepsis Action Taken by Nursing No Action Required 06/19/22 10:10 06/19/22 10:20 06/19/22 10:26 Temperature Temperature Source Pulse Rate 74 78 Pulse Rate from SpO2 Sensor Respiratory Rate 14 14 Respiratory Effort / Characteristics Respiratory Depth Respiratory Pattern Blood Pressure 153/89 H Blood Pressure Mean 110 Pulse Oximetry Oxygen Delivery Method Room Air Room Air Room Air Sepsis Recent Fever Within 48 Hours Sepsis New/Unexplained Change in Mental Status Sepsis Action Taken by Nursing 06/19/22 10:26 06/19/22 10:30 06/19/22 10:31 Temperature Temperature Source Pulse Rate 72 70 Pulse Rate from SpO2 Sensor 77 Respiratory Rate 17 17 Respiratory Effort / Characteristics Respiratory Depth Respiratory Pattern Blood Pressure 188/92 H Blood Pressure Mean 124 Pulse Oximetry 96 Oxygen Delivery Method Room Air Room Air Room Air Sepsis Recent Fever Within 48 Hours Sepsis New/Unexplained Change in Mental Status Sepsis Action Taken by Nursing 06/19/22 10:31 06/19/22 10:40 06/19/22 10:50 Temperature Temperature Source Pulse Rate 72 72 74 Pulse Rate from SpO2 Sensor 71 66 69 Respiratory Rate 17 15 19 Respiratory Effort / Characteristics Respiratory Depth Respiratory Pattern Blood Pressure Blood Pressure Mean Pulse Oximetry 97 96 94 Oxygen Delivery Method Room Air Room Air Room Air Sepsis Recent Fever Within 48 Hours Sepsis New/Unexplained Change in Mental Status Sepsis Action Taken by Nursing 06/19/22 11:00 06/19/22 11:10 06/19/22 11:20 Temperature Temperature Source Pulse Rate 82 79 78 Pulse Rate from SpO2 Sensor 75 77 75 Respiratory Rate 17 17 16 Respiratory Effort / Characteristics Respiratory Depth Respiratory Pattern Blood Pressure Blood Pressure Mean Pulse Oximetry 95 96 Oxygen Delivery Method Room Air Room Air Room Air Sepsis Recent Fever Within 48 Hours Sepsis New/Unexplained Change in Mental Status Sepsis Action Taken by Nursing 06/19/22 11:30 06/19/22 11:40 06/19/22 11:50 Temperature Temperature Source Pulse Rate 73 66 67 Pulse Rate from SpO2 Sensor 66 70 Respiratory Rate 18 17 14 Respiratory Effort / Characteristics Respiratory Depth Respiratory Pattern Blood Pressure Blood Pressure Mean Pulse Oximetry 94 96 Oxygen Delivery Method Room Air Room Air Room Air Sepsis Recent Fever Within 48 Hours Sepsis New/Unexplained Change in Mental Status Sepsis Action Taken by Nursing 06/19/22 12:00 06/19/22 12:00 06/19/22 12:10 Temperature Temperature Source Pulse Rate 71 76 Pulse Rate from SpO2 Sensor 73 Respiratory Rate 17 16 Respiratory Effort / Characteristics Respiratory Depth Respiratory Pattern Blood Pressure 178/93 H Blood Pressure Mean 121 Pulse Oximetry 94 Oxygen Delivery Method Room Air Room Air Room Air Sepsis Recent Fever Within 48 Hours Sepsis New/Unexplained Change in Mental Status Sepsis Action Taken by Nursing 06/19/22 12:20 06/19/22 12:30 Temperature Temperature Source Pulse Rate 76 71 Pulse Rate from SpO2 Sensor Respiratory Rate 15 18 Respiratory Effort / Characteristics Respiratory Depth Respiratory Pattern Blood Pressure Blood Pressure Mean Pulse Oximetry Oxygen Delivery Method Room Air Room Air Sepsis Recent Fever Within 48 Hours Sepsis New/Unexplained Change in Mental Status Sepsis Action Taken by Nursing Laboratory Data 06/19/22 10:00 06/19/22 10:00 Lab Results 06/19/22 06/19/22 06/19/22 Range/Units 10:00 10:00 10:00 WBC 6.04 (4.8-10.8) K/ul RBC 4.46 (4.20-5.40) M/uL Hgb 13.2 (12.0-16.0) g/dl Hct 40.6 (37.0-47.0) % MCV 91.0 (80.0-100.0) fL MCH 29.6 (25.0-34.0) pg MCHC 32.5 (32.0-36.0) g/dL RDW Std Deviation 44.5 (36.4-46.3) fL RDW Coeff of Ralph 13.2 (11.5-14.5) % Plt Count 235 (130-400) K/uL MPV 12.6 H (9.4-12.4) fL Immature Gran % (Auto) 0.2 % Neut % (Auto) 54.1 % Lymph % (Auto) 31.6 % Jay % (Auto) 8.3 % Eos % (Auto) 4.8 % Baso % (Auto) 1.0 % Neut # (Auto) 3.27 (1.40-6.50) K/uL Lymph # (Auto) 1.91 (1.2-3.4) K/uL Jay # (Auto) 0.50 (0.11-0.59) K/uL Eos # (Auto) 0.29 (0-0.50) K/uL Baso # (Auto) 0.06 (0-0.2) K/uL Immature Gran # (Auto) 0.01 (0.01-0.20) K/uL PT 11.3 (9.0-12.0) Seconds INR 1.1 (0.9-1.1) Sodium 141 (136-145) mmol/L Potassium 4.4 (3.5-5.1) mmol/L Chloride 105 (98-107) mmol/L Carbon Dioxide 28 (21-32) mmol/L Anion Gap 8 (3-11) BUN 16 (6-23) mg/dl Creatinine 1.00 (0.6-1.2) mg/dl Est Cr Clr Drug Dosing Not Reportable Est GFR ( Amer) 60.8 ml/min Est GFR (Non-Af Amer) 52.4 ml/min BUN/Creatinine Ratio 16.0 (10-20) Glucose 125 H (70-99(Fasting)) mg/dl Calcium 9.5 (8.5-10.1) mg/dl Magnesium 1.9 (1.7-2.4) mg/dl Total Bilirubin 0.9 (0.2-1.0) mg/dl AST 14 (13-39) U/L ALT 9 (7-52) U/L Alkaline Phosphatase 77 (34-104) U/L Troponin I High Sens 8.2 (0-14) pg/ml Total Protein 6.2 (6.0-8.3) gm/dl Albumin 3.7 (3.4-5.0) gm/dl Globulin 2.5 (2.5-4.0) gm/dl Albumin/Globulin Ratio 1.5 (0.9-2) TSH (0.300-4.500) uIu/ml Urine Color Urine Appearance (Clear) Urine pH (4.5-7.5) Ur Specific [place] (1.000-1.030) Urine Protein (Negative) Urine Glucose (UA) (Negative) Urine Ketones (Negative) Urine Blood (Negative) Urine Nitrite (Negative) Urine Bilirubin (Negative) Urine Urobilinogen (Negative) Ur Leukocyte Esterase (Negative) Urine WBC (Auto) (0-5) /hpf Urine RBC (Auto) (0-4) /hpf U Hyaline Cast (Auto) (0-5) /lpf U Epithel Cells (Auto) (0-5) /lpf Urine Bacteria (Auto) (Negative) Adenovirus (PCR) (NotDetected) B. pertussis DNA (PCR) (NotDetected) B.parapertussis DNA PCR (NotDetected) C. pneumoniae DNA (PCR) (NotDetected) Coronavirus OC43 (PCR) (NotDetected) Coronavirus HKU1 (PCR) (NotDetected) Coronavirus 229E (PCR) (NotDetected) SARS-CoV-2 (PCR) (NotDetected) Coronavirus NL63 (PCR) (NotDetected) Human Metapneumovir PCR (NotDetected) Influenza Type A (PCR) (NotDetected) Influenza Type B (PCR) (NotDetected) M. pneumoniae (PCR) (NotDetected) Parainfluenza 1 (PCR) (NotDetected) Parainfluenza 2 (PCR) (NotDetected) Parainfluenza 3 (PCR) (NotDetected) Parainfluenza 4 (PCR) (NotDetected) RSV (PCR) (NotDetected) Entero/Rhino (PCR) (NotDetected) 06/19/22 06/19/22 06/19/22 Range/Units 10:00 10:27 12:27 WBC (4.8-10.8) K/ul RBC (4.20-5.40) M/uL Hgb (12.0-16.0) g/dl Hct (37.0-47.0) % MCV (80.0-100.0) fL MCH (25.0-34.0) pg MCHC (32.0-36.0) g/dL RDW Std Deviation (36.4-46.3) fL RDW Coeff of Ralph (11.5-14.5) % Plt Count (130-400) K/uL MPV (9.4-12.4) fL Immature Gran % (Auto) % Neut % (Auto) % Lymph % (Auto) % Jay % (Auto) % Eos % (Auto) % Baso % (Auto) % Neut # (Auto) (1.40-6.50) K/uL Lymph # (Auto) (1.2-3.4) K/uL Jay # (Auto) (0.11-0.59) K/uL Eos # (Auto) (0-0.50) K/uL Baso # (Auto) (0-0.2) K/uL Immature Gran # (Auto) (0.01-0.20) K/uL PT (9.0-12.0) Seconds INR (0.9-1.1) Sodium (136-145) mmol/L Potassium (3.5-5.1) mmol/L Chloride (98-107) mmol/L Carbon Dioxide (21-32) mmol/L Anion Gap (3-11) BUN (6-23) mg/dl Creatinine (0.6-1.2) mg/dl Est Cr Clr Drug Dosing Est GFR ( Amer) ml/min Est GFR (Non-Af Amer) ml/min BUN/Creatinine Ratio (10-20) Glucose (70-99(Fasting)) mg/dl Calcium (8.5-10.1) mg/dl Magnesium (1.7-2.4) mg/dl Total Bilirubin (0.2-1.0) mg/dl AST (13-39) U/L ALT (7-52) U/L Alkaline Phosphatase (34-104) U/L Troponin I High Sens (0-14) pg/ml Total Protein (6.0-8.3) gm/dl Albumin (3.4-5.0) gm/dl Globulin (2.5-4.0) gm/dl Albumin/Globulin Ratio (0.9-2) TSH 0.970 (0.300-4.500) uIu/ml Urine Color Yellow Urine Appearance Cloudy A (Clear) Urine pH 5.5 (4.5-7.5) Ur Specific [place] 1.011 (1.000-1.030) Urine Protein Negative (Negative) Urine Glucose (UA) Negative (Negative) Urine Ketones Negative (Negative) Urine Blood 1+ H (Negative) Urine Nitrite Positive A (Negative) Urine Bilirubin Negative (Negative) Urine Urobilinogen Negative (Negative) Ur Leukocyte Esterase 2+ H (Negative) Urine WBC (Auto) >30 H (0-5) /hpf Urine RBC (Auto) 0-4 (0-4) /hpf U Hyaline Cast (Auto) 1-5 (0-5) /lpf U Epithel Cells (Auto) >30 H (0-5) /lpf Urine Bacteria (Auto) 4+ H (Negative) Adenovirus (PCR) Not Detected (NotDetected) B. pertussis DNA (PCR) Not Detected (NotDetected) B.parapertussis DNA PCR Not Detected (NotDetected) C. pneumoniae DNA (PCR) Not Detected (NotDetected) Coronavirus OC43 (PCR) Not Detected (NotDetected) Coronavirus HKU1 (PCR) Not Detected (NotDetected) Coronavirus 229E (PCR) Not Detected (NotDetected) SARS-CoV-2 (PCR) Not Detected (NotDetected) Coronavirus NL63 (PCR) Not Detected (NotDetected) Human Metapneumovir PCR Not Detected (NotDetected) Influenza Type A (PCR) Not Detected (NotDetected) Influenza Type B (PCR) Not Detected (NotDetected) M. pneumoniae (PCR) Not Detected (NotDetected) Parainfluenza 1 (PCR) Not Detected (NotDetected) Parainfluenza 2 (PCR) Not Detected (NotDetected) Parainfluenza 3 (PCR) Not Detected (NotDetected) Parainfluenza 4 (PCR) Not Detected (NotDetected) RSV (PCR) Not Detected (NotDetected) Entero/Rhino (PCR) Not Detected (NotDetected) Administered Medications Sodium Chloride (Nss 1000ml) 1,000 mls @ 125 mls/hr IV .Q8H ASHLEY Stop: 06/19/22 17:29 Last Admin: 06/19/22 10:07 Dose: 125 mls/hr Documented By: SHOSHANA Ceftriaxone Sodium (Rocephin) 2,000 mg in 70 mls @ 140 mls/hr IV NOW STA Stop: 06/19/22 13:38 Last Admin: 06/19/22 13:23 Dose: 140 mls/hr Documented By: SHOSHANA Discontinued Medications Acetaminophen (Acetaminophen 500 Mg Tab) 1,000 mg PO NOW STA Stop: 06/19/22 09:30 Last Admin: 06/19/22 10:33 Dose: 1,000 mg Documented By: SHOSHANA Sodium Chloride (Nss) 500 mls @ 999 mls/hr IV .Q31M ASHLEY Stop: 06/19/22 10:00 Last Infusion: 06/19/22 11:08 Dose: 0 mls/hr Documented By: Infusion: 06/19/22 11:08 Dose: 0 mls/hr Documented By: Admin: 06/19/22 10:07 Dose: 999 mls/hr Documented By: SHOSHANA Imaging Data Radiologist's Impression: Head CT 06/19/22 09:29 CT head/brain wo con CLINICAL HISTORY: 82 years-old Female with headache, AMS. Acute headache with altered mental status TECHNIQUE: Multiple axial CT images of the head were obtained without contrast. A dose lowering technique was utilized adhering to the principles of ALARA. CT DOSE: 614.27 mGy.cm COMPARISON: 01/09/2022 FINDINGS: No acute intracranial hemorrhage, midline shift, intracranial mass, hydrocephalus, territorial ischemia or abnormal extra-axial collection. Involutional changes with chronic microvascular ischemic disease. Enc ephalomalacia related to chronic parietal infarcts. Mild ex vacuo ventriculomegaly the left lateral ventricle. The calvarium is intact. Prior bilateral lens repair. The paranasal sinuses, mastoid air cells, and middle ear cavities are clear. IMPRESSION: No acute intracranial abnormality. ACT 112: Negative or not required by law. The above report was generated using voice recognition software. It may contain grammatical, syntax or spelling errors. Electronically signed by: Arash To M.D. 06/19/2022 9:56 AM Discharge Plan Visit Data Chief Complaint: Altered Mental Status Stated Complaint: SEVERE HEAD PAIN, ALTERED MENTAL STATUS, WEAKNESS ED Provider: Christian Brower Discharge Problem: Chronic anticoagulation, Acute UTI (urinary tract infection), Acute metabolic encephalopathy Forms Stand Alone Forms: My [facility] Prescriptions Prescriptions: No Action atorvastatin 40 mg Tablet 40 mg PO .WITH DINNER metoprolol succinate 50 mg Tablet Extended Release 24 Hr 50 mg PO DAILY ondansetron HCl 4 mg Tablet 4 mg PO Q6H PRN (Reason: Nausea) cholecalciferol (vitamin D3) [Vitamin D3] 25 mcg (1,000 unit) Tablet 25 mcg PO DAILY acetaminophen 325 mg Tablet 650 mg PO Q4 PRN (Reason: Pain) docusate sodium [Colace] 100 mg Capsule 100 mg PO BID cyclosporine [Restasis] 0.05 % Dropperette 1 drp OPHTHALMIC (EYE) Q12H Eliquis 5 mg Tablet 5 mg PO BID 30 Days Qty: 60 1RF losartan 50 mg tablet 50 mg PO DAILY latanoprost 0.005 % drops 1 drp OPB HS Osteo Bi-Flex Triple Strength 750 mg-644 mg- 30 mg-1 mg Tablet 1 tab PO DAILY magnesium oxide 400 mg magnesium Tablet 400 mg PO DAILY omega-3 fatty acids 1,000 mg Capsule 1,000 mg PO DAILY Referrals Referrals: Jenna Acosta MD [Primary Care Provider] -
[2022-06-19 12:31] LABS: Albumin Level 3.7 gm/dl (3.4-5.0); Anion Gap 8 (3-11); Bilirubin,Total 0.9 mg/dl (0.2-1.0); Calcium 9.5 mg/dl (8.5-10.1); Carbon Dioxide 28 mmol/L (21-32); Chloride 105 mmol/L (98-107); Magnesium 1.9 mg/dl (1.7-2.4); Potassium 4.4 mmol/L (3.5-5.1); Sodium 141 mmol/L (136-145)
[2022-06-19 12:37] LABS: Alanine Aminotransferase 9 U/L (7-52); Albumin Globulin Ratio 1.5 (0.9-2); Alkaline Phosphatase 77 U/L (34-104); Aspartate Aminotransferase 14 U/L (13-39); Blood Urea Nitrogen 16 mg/dl (6-23); Est GFR (African American) 60.8 ml/min; Est GFR (Non-African American) 52.4 ml/min; Globulin 2.5 gm/dl (2.5-4.0); Glucose 125 mg/dl (70-99(Fasting)); Total Protein 6.2 gm/dl (6.0-8.3)
[2022-06-19 12:44] LABS: Appearance Urine Cloudy (Clear); Bacteria Urine Automated 4+ (Negative); Bilirubin Urine Negative (Negative); Blood Urine 1+ (Negative); Color Urine Yellow; Epithelial Cell Urine Auto >30 /lpf (0-5); Glucose Urine UA Negative (Negative); Ketones Urine Negative (Negative); Leukocyte Esterase Urine 2+ (Negative); Nitrite Urine Positive (Negative); Protein Urine Negative (Negative); RBC Urine Automated 0-4 /hpf (0-4); Specific Gravity Urine 1.011 (1.000-1.030); Urobilinogen Urine Negative (Negative); WBC Urine Automated >30 /hpf (0-5); pH Urine 5.5 (4.5-7.5)
[2022-06-19] MEDS ORDERED: cefTRIAXone SODIUM 2,000 MG/70 ML BAG IV STA (13:09)
--- NOTE | 2022-06-19 13:21 | History & Physical Report ---
Date of Service June 19, 2022 Assessment & Plan (1) Acute metabolic encephalopathy: (2) Acute UTI (urinary tract infection): Plan: - Admit to med telemetry - AMS in female who presented with headache x1 day. CT of the head and brain without contrast was obtained and without intracranial abnormality, encephalomalacia related to chronic parietal infarcts. Expressive aphasia at baseline, currently she does not know the year, month, cannot name president, cannot repeat her own birthday, daughter reports this is near her baseline. - Will continue Rocephin IV, start p.o. vancomycin once daily for prophylactic use against C. 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 It was Reder revealed that she had a left parietal occipital hematoma with SDH extension, trace SAH in left sylvian fissure, and 4 mm left to right midline shift. She underwent a prolonged course after hospitalization where she went to inpatient rehab at [facility] on 12/23/2021, admitted to [facility] again from [facility] on 01/09-01/13 due to agitation and confusion, and was again discharged to [facility] on 827 for PT and OT, further discharged home on 02/04/2022. - She is maintained on Eliquis - Expressive aphasia as noted above DVT PPx: - teds, scds CODE: DNR/DNI Dispo: From home, likely to remain in the hospital x 1-2 days A total of 78 minutes were spent with greater than 50% of that time face to face with the patient, personally reviewing all current laboratories, imaging studies, past medication reconciliation, outpatient chart review, and discussion with specialists to collaborate care for the patient with attending. Please see attending documentation for corrections and/or additions. 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 difficile occurrence last summer x2 requiring antibiotics, who presents with worsening confusion. She reports this started today. The patient presents here with her daughter Janice, who reports that her other sister, Vivian, normally cares for the patient. She notes that she was more increasingly confused and a little bit different this morning whenever she got up to eat breakfast/take her morning medications. Patient is unable to tell me if she actually took her medications but thinks that she did. She denies any abdominal complaints, cramping, urinary habits have seem to be the same. She denies any hematuria, dysuria or increased frequency. Patient admits that she has not had a bowel movement x2 days and does take a stool softener and/or MiraLAX at home as needed. Denies any recent fevers, chills or sweats. Due to her previous stroke and expressive aphasia, it takes a while for the patient to answer my questions and at times gets confused when you speak fast. She is also hard of hearing which creates a barrier to communication with the mask. UA appears to be grossly infected today on presentation to the ER. Ceftriaxone IV has been started which we will continue. Allergies Allergy/AdvReac Type Severity Reaction Status Date / Time methylprednisolone Allergy Intermediate USED WHEN Verified 06/19/22 15:05 HAD POSION RAZ AND BROKE OUT IN HIVES Home Medications Medication Instructions Recorded Confirmed Type latanoprost 0.005 % eye drops 1 drp OPB HS 12/03/21 06/19/22 History magnesium oxide 400 mg PO DAILY 12/03/21 06/19/22 History acetaminophen 325 mg tablet 650 mg PO Q4 PRN Pain 01/09/22 06/19/22 History atorvastatin 40 mg tablet 40 mg PO QDD 01/09/22 06/19/22 History cholecalciferol (vitamin D3) 25 25 mcg PO DAILY 01/09/22 06/19/22 History mcg (1,000 unit) tablet (Vitamin D3) metoprolol succinate 50 mg 50 mg PO DAILY 01/09/22 06/19/22 History tablet,extended release 24 hr apixaban 5 mg tablet (Eliquis) 5 mg PO BID 30 days #60 tabs 01/13/22 06/19/22 Rx losartan 25 mg tablet 25 mg PO QAM 06/19/22 06/19/22 History Past Med/Surg History Medical History (Updated 06/19/22 @ 13:42 by Christian Brower MD) Aphasia CVA (cerebral vascular accident) Hx of Clostridium difficile infection Hyperlipidemia Hypertension Paroxysmal A-fib Prediabetes Family History Other Family history non-contributory Social History Smoking Status: Never smoker Hx Alcohol Use: No Hx Substance Use: No Preferred Language: Pashto Communication Ability: Impaired Overlock Waistline Joiner Required: No Beliefs That Will Affect Care: None marital status: Current Living Situation: Rehab Current Living Situation Comment: [facility] Feels Safe at Home: Yes Assistive Devices: None Review of Systems Review of Systems: Constitutional: No fever, sweats or chills Eyes: No diplopia, no worsening or blurred vision ENT: normal hearing, no trouble swallowing Respiratory: No cough, sputum, dyspnea at rest or on exertion Cardiovascular: No chest pain, tightness or palpitations Abdomen: No pain, nausea, vomiting, diarrhea or constipation Musculoskeletal: No joint pain, calf pain, swelling Neurologic: No weakness, numbness/tingling, or balance problems Psychiatric: No anxiety or depression Skin: No rash or itch Physical Exam Physical Exam: General: awake, alert, no apparent distress, + expressive aphasia Head: Normocephalic, atraumatic ENT: PERRL, EOMI, no pharyngeal exudate, mucous membranes moist Chest: Clear to auscultation, on room air, no adventitious breath sounds Cardiac: Regular rate and rhythm, no murmur, no JVD, normal peripheral pulses, good capillary refill Abdominal: NABS x 4 quadrants, soft, nondistended, nontender to palpation, no rebound or guarding Extremities: Normal inspection, no peripheral edema or erythema, calfs nontender to palpation Psych: Normal mood and affect Neuro: AAO x 3, strength intact bilaterally and rated 5/5, no motor deficits, speech is clear, no peripheral sensory deficits Results & Data Results & Data ([facility]) Vital Signs (Past 12 Hours) Vital Signs Temp Pulse Resp BP Pulse Ox O2 Del Method 06/19/22 12:30 71 18 Room Air 06/19/22 12:20 76 15 Room Air 06/19/22 12:10 76 16 94 Room Air 06/19/22 12:00 71 17 Room Air 06/19/22 12:00 178/93 H Room Air 06/19/22 11:50 67 14 96 Room Air 06/19/22 11:40 66 17 94 Room Air 06/19/22 11:30 73 18 Room Air 06/19/22 11:20 78 16 96 Room Air 06/19/22 11:10 79 17 95 Room Air 06/19/22 11:00 82 17 Room Air 06/19/22 10:50 74 19 94 Room Air 06/19/22 10:40 72 15 96 Room Air 06/19/22 10:31 72 17 97 Room Air 06/19/22 10:31 188/92 H Room Air 06/19/22 10:30 70 17 Room Air 06/19/22 10:26 72 17 96 Room Air 06/19/22 10:26 153/89 H Room Air 06/19/22 10:20 78 14 Room Air 06/19/22 10:10 74 14 Room Air 06/19/22 10:00 82 16 Room Air 06/19/22 09:58 72 14 Room Air 06/19/22 09:14 36.8 C 80 20 135/64 94 Room Air Laboratory Results 06/19/22 12:27 Urine Culture - Pending Urine,Clean Catch 06/19/22 06/19/22 06/19/22 12:27 10:27 10:00 WBC RBC Hgb Hct MCV MCH MCHC RDW Std Deviation RDW Coeff of Ralph Plt Count MPV Immature Gran % (Auto) Neut % (Auto) Lymph % (Auto) [place] % (Auto) Eos % (Auto) Baso % (Auto) Neut # (Auto) Lymph # (Auto) [place] # (Auto) Eos # (Auto) Baso # (Auto) Immature Gran # (Auto) PT INR Sodium Potassium Chloride Carbon Dioxide Anion Gap BUN Creatinine Est Cr Clr Drug Dosing Est GFR ( Amer) Est GFR (Non-Af Amer) BUN/Creatinine Ratio Glucose Calcium Magnesium Total Bilirubin AST ALT Alkaline Phosphatase Troponin I High Sens Total Protein Albumin Globulin Albumin/Globulin Ratio TSH 0.970 Urine Color Yellow Urine Appearance Cloudy A Urine pH 5.5 Ur Specific [place] 1.011 Urine Protein Negative Urine Glucose (UA) Negative Urine Ketones Negative Urine Blood 1+ H Urine Nitrite Positive A Urine Bilirubin Negative Urine Urobilinogen Negative Ur Leukocyte Esterase 2+ H Urine WBC (Auto) >30 H Urine RBC (Auto) 0-4 U Hyaline Cast (Auto) 1-5 U Epithel Cells (Auto) >30 H Urine Bacteria (Auto) 4+ H Adenovirus (PCR) Not Detected B. pertussis DNA (PCR) Not Detected B.parapertussis DNA PCR Not Detected C. pneumoniae DNA (PCR) Not Detected Coronavirus OC43 (PCR) Not Detected Coronavirus HKU1 (PCR) Not Detected Coronavirus 229E (PCR) Not Detected SARS-CoV-2 (PCR) Not Detected Coronavirus NL63 (PCR) Not Detected Human Metapneumovir PCR Not Detected Influenza Type A (PCR) Not Detected Influenza Type B (PCR) Not Detected M. pneumoniae (PCR) Not Detected Parainfluenza 1 (PCR) Not Detected Parainfluenza 2 (PCR) Not Detected Parainfluenza 3 (PCR) Not Detected Parainfluenza 4 (PCR) Not Detected RSV (PCR) Not Detected Entero/Rhino (PCR) Not Detected 06/19/22 06/19/22 06/19/22 10:00 10:00 10:00 WBC 6.04 RBC 4.46 Hgb 13.2 Hct 40.6 MCV 91.0 MCH 29.6 MCHC 32.5 RDW Std Deviation 44.5 RDW Coeff of Ralph 13.2 Plt Count 235 MPV 12.6 H Immature Gran % (Auto) 0.2 Neut % (Auto) 54.1 Lymph % (Auto) 31.6 [place] % (Auto) 8.3 Eos % (Auto) 4.8 Baso % (Auto) 1.0 Neut # (Auto) 3.27 Lymph # (Auto) 1.91 [place] # (Auto) 0.50 Eos # (Auto) 0.29 Baso # (Auto) 0.06 Immature Gran # (Auto) 0.01 PT 11.3 INR 1.1 Sodium 141 Potassium 4.4 Chloride 105 Carbon Dioxide 28 Anion Gap 8 BUN 16 Creatinine 1.00 Est Cr Clr Drug Dosing Not Reportable Est GFR ( Amer) 60.8 Est GFR (Non-Af Amer) 52.4 BUN/Creatinine Ratio 16.0 Glucose 125 H Calcium 9.5 Magnesium 1.9 Total Bilirubin 0.9 AST 14 ALT 9 Alkaline Phosphatase 77 Troponin I High Sens 8.2 Total Protein 6.2 Albumin 3.7 Globulin 2.5 Albumin/Globulin Ratio 1.5 TSH Urine Color Urine Appearance Urine pH Ur Specific [place] Urine Protein Urine Glucose (UA) Urine Ketones Urine Blood Urine Nitrite Urine Bilirubin Urine Urobilinogen Ur Leukocyte Esterase Urine WBC (Auto) Urine RBC (Auto) U Hyaline Cast (Auto) U Epithel Cells (Auto) Urine Bacteria (Auto) Adenovirus (PCR) B. pertussis DNA (PCR) B.parapertussis DNA PCR C. pneumoniae DNA (PCR) Coronavirus OC43 (PCR) Coronavirus HKU1 (PCR) Coronavirus 229E (PCR) SARS-CoV-2 (PCR) Coronavirus NL63 (PCR) Human Metapneumovir PCR Influenza Type A (PCR) Influenza Type B (PCR) M. pneumoniae (PCR) Parainfluenza 1 (PCR) Parainfluenza 2 (PCR) Parainfluenza 3 (PCR) Parainfluenza 4 (PCR) RSV (PCR) Entero/Rhino (PCR) Diagnostic Findings Head CT 06/19/22 09:29 CT head/brain wo con CLINICAL HISTORY: 82 years-old Female with headache, AMS. Acute headache with altered mental status TECHNIQUE: Multiple axial CT images of the head were obtained without contrast. A dose lowering technique was utilized adhering to the principles of ALARA. CT DOSE: 614.27 mGy.cm COMPARISON: 01/09/2022 FINDINGS: No acute intracranial hemorrhage, midline shift, intracranial mass, hydrocephalus, territorial ischemia or abnormal extra-axial collection. Involutional changes with chronic microvascular ischemic disease. Encephalomalacia related to chronic parietal infarcts. Mild ex vacuo ventriculomegaly the left lateral ventricle. The calvarium is intact. Prior bilateral lens repair. The paranasal sinuses, mastoid air cells, and middle ear cavities are clear. IMPRESSION: No acute intracranial abnormality. ACT 112: Negative or not required by law. The above report was generated using voice recognition software. It may contain grammatical, syntax or spelling errors. Electronically signed by: Arash To M.D. 06/19/2022 9:56 AM ECG Additional Comments: 19-JUN-2022 10:00:02 [facility]-EDSTAT ROUTINE RETRIEVAL Atrial fibrillation Nonspecific T wave abnormality Abnormal ECG When compared with ECG of 09-JAN-2022 20:24, Atrial fibrillation has replaced Sinus rhythm Nonspecific T wave abnormality, worse in Lateral leads 25mm/s10mm/[id number]: [id number] by: REFERRED SELF Unconfirmed Vent. rate 70 BPM SC interval * ms QRS duration 76 ms QT/QTc 422/455 ms Code Status & VTE Plan Code Status DNR/DNI-discussed with the patient and her daughterJanice at bedside Supervising Physician Co-Signing Physician Notes Patient was seen and examined independently. chart reviewed. Case discussed with YANETH. Agree with assessment and plan above. Ceftriaxone for acute cystitis with trace hematuria, follow up urine culture. PO vancomycin prophylaxis dose for history of C diff infection.
--- NOTE | 2022-06-19 15:33 | Electrocardiogram Report ---
Test Reason : Blood Pressure : / mmHG Vent. Rate : 070 BPM Atrial Rate : 061 BPM P-R Int : 000 ms QRS Dur : 076 ms QT Int : 422 ms P-R-T Axes : 000 008 083 degrees QTc Int : 455 ms Atrial fibrillation Nonspecific T wave abnormality Abnormal ECG When compared with ECG of 09-JAN-2022 20:24, Atrial fibrillation has replaced Sinus rhythm Nonspecific T wave abnormality, worse in Lateral leads Confirmed by Darion Merrill ([id number]) on 06/19/2022 3:33:10 PM Referred By: REFERRED SELF Confirmed By:Darion Merrill
[2022-06-19] MEDS ORDERED: GLUCOSE 40% GEL 15 GM TUBE PO PRN (16:34)
[2022-06-19] MEDS ORDERED: GLUCAGON FOR INJ 1 MG VIAL SQ PRN (16:34)
[2022-06-19] MEDS ORDERED: ONDANSETRON INJ 2 MG/ML 2 ML VIAL IV PRN (16:34)
[2022-06-19] MEDS ORDERED: CARBOHYDRATES FOR HYPOGLYCEMIA PO PRN (16:34)
[2022-06-19] MEDS ORDERED: DEXTROSE 50% 50 ML SYRINGE IV PRN (16:34)
[2022-06-19] MEDS ORDERED: GLUCOSE 10 TAB/TUBE PO PRN (16:34)
[2022-06-19] MEDS ORDERED: RASPBERRY SYRUP 5 ML UDP PO ONE (17:00)
[2022-06-19] MEDS: SACCHAROMYCES BOULARDII 250 MG CAP PO SCH (18:20)
[2022-06-19] MEDS: VANCOMYCIN HCL 125 MG/2.5ML SOLN PO SCH (18:22)
[2022-06-19] MEDS: INSULIN ASPART PER UNIT SC SCH ×2 (18:32→20:49)
[2022-06-19] MEDS: APIXABAN 5 MG TABLET PO SCH (20:48)
[2022-06-19] MEDS ORDERED: LATANOPROST 0.005% OP SOLN 2.5 ML BTL OPB SCH (21:00)
[2022-06-20 04:51] LABS: Albumin Globulin Ratio 1.6 (0.9-2); Albumin Level 3.3 gm/dl (3.4-5.0); BUN Creatinine Ratio 17.2 (10-20); Bilirubin Direct 0.1 mg/dl (0-0.2); Bilirubin,Total 0.7 mg/dl (0.2-1.0); Calcium 9.1 mg/dl (8.5-10.1); Chol HDL Ratio 2.8 (0-5); Creatinine Clr Calc Pharmacy 55.5 ml/min; Est GFR (African American) 66.3 ml/min; Est GFR (Non-African American) 57.2 ml/min; Globulin 2.1 gm/dl (2.5-4.0); Magnesium 1.7 mg/dl (1.7-2.4); Potassium 3.8 mmol/L (3.5-5.1); Total Protein 5.4 gm/dl (6.0-8.3)
[2022-06-20 05:40] LABS: Hematocrit (blood only) 35.8 % (37.0-47.0); Mean Corpuscular Hgb Conc 33.5 g/dL (32.0-36.0); Mean Corpuscular Volume 89.5 fL (80.0-100.0); Mean Platelet Volume 13.1 fL (9.4-12.4); Platelet Count 204 K/uL (130-400); RDW Coefficient of Variation 13.1 % (11.5-14.5); RDW Standard Deviation 43.1 fL (36.4-46.3); White Blood Count 7.71 K/ul (4.8-10.8)
[2022-06-20 06:33] LABS: Estimated Average Glucose 128 mg/dl; Hemoglobin A1C 6.1 % (4.5-5.6)
[2022-06-20] MEDS ORDERED: MAGNESIUM OXIDE 400 MG TAB PO SCH (09:00)
[2022-06-20] MEDS ORDERED: RASPBERRY SYRUP 5 ML UDP PO SCH (09:00)
[2022-06-20] MEDS ORDERED: CHOLECALCIFEROL 1,000 UNITS 25 MCG TAB PO SCH (09:00)
[2022-06-20] MEDS ORDERED: METOPROLOL SUCC 50MG EXT REL TAB PO SCH (09:00)
[2022-06-20] MEDS ORDERED: LOSARTAN POTASSIUM 25 MG TAB PO SCH (09:00)
[2022-06-20] MEDS: INSULIN ASPART PER UNIT SC SCH ×2 (09:46→13:16)
[2022-06-20] MEDS: VANCOMYCIN HCL 125 MG/2.5ML SOLN PO SCH (09:46)
[2022-06-20] MEDS: SACCHAROMYCES BOULARDII 250 MG CAP PO SCH (09:46)
[2022-06-20] MEDS: APIXABAN 5 MG TABLET PO SCH (09:47)
[2022-06-20] MEDS ORDERED: cefTRIAXone SODIUM 2,000 MG in DEXTROSE 5% 50 ML IV SCH (13:00)
[2022-06-20] MEDS ORDERED: ATORVASTATIN 40 MG TAB PO SCH (16:30)
--- NOTE | 2022-06-21 09:17 | Discharge Summary ---
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 difficile occurrence last summer x2 requiring antibiotics, who presents with worsening confusion. She reports this started today. The patient presents here with her daughter Janice, who reports that her other sister, Vivian, normally cares for the patient. She notes that she was more increasingly confused and a little bit different this morning whenever she got up to eat breakfast/take her morning medications. Patient is unable to tell me if she actually took her medications but thinks that she did. She denies any abdominal complaints, cramping, urinary habits have seem to be the same. She denies any hematuria, dysuria or increased frequency. Patient admits that she has not had a bowel movement x2 days and does take a stool softener and/or MiraLAX at home as needed. Denies any recent fevers, chills or sweats. Due to her previous stroke and expressive aphasia, it takes a while for the patient to answer my questions and at times gets confused when you speak fast. She is also hard of hearing which creates a barrier to communication with the mask. UA appears to be grossly infected today on presentation to the ER. Ceftriaxone IV has been started which we will continue. Principal Diagnosis Klebsiella UTI Acute metabolic encephalopathy, resolved Discharge Exam Patient was seen in the ER (she was admitted but remained in the ER). Daughter, Vivian, was present at bedside. Mrs Torres felt well. She was observed ambulating from her bed to the restroom with no difficulty. Vivian felt her mom was back to her baseline. No fevers/chills Discharge Data Allergies Allergy/AdvReac Type Severity Reaction Status Date / Time methylprednisolone Allergy Intermediate USED WHEN Verified 06/19/22 15:05 HAD POSION RAZ AND BROKE OUT IN HIVES Ordered Studies 06/19/22 09:29 CT head/brain wo con Stat Hospital Course (1) Acute metabolic encephalopathy: (2) Acute UTI (urinary tract infection): (3) Hypertension: (4) Hyperlipidemia: (5) Paroxysmal A-fib: (6) Chronic anticoagulation: (7) Aphasia: (8) CVA (cerebral vascular accident): Plan Mrs Yanci Torres is a 82 year old female with a history of CVA with residual expressive aphasia, PAF on Eliquis brought to the ER by her family due to episode of confusion and headache. Here was found to have a urinary tract infection. She was placed on ceftriaxone and by the next day she was back to her baseline. She was very frustrated and became angry while being in the hospital, because of this her family would like her released from the hospital sooner rather than later. At the time of discharge, her urine culture was positive for GNR but final culture results were still pending. She was stable for discharge and I explained to her and her daughter that we can switch to oral antibiotic but there is a possibility that her infection may be resistant to this antibiotic. Patient and daughter understood this possibility and are agreeable for discharge. She was initially discharged on Macrobid. One day after her release, her final urine culture resulted as Klebsiella that was resistant to Macrobid. I called Vivian (daughter) and notified her of this and sent a new prescription for ciprofloxacin 250mg BID x 3 days to their home pharmacy. In addition, her oral vancomycin for c diff prophylaxis required insurance authorization and there was a possibility coverage would be denied--this was also explained to Vivian. I counseled her to watch for diarrhea, fever/chills, or any new symptoms to call their PCP or return to ER. Total Time Total Time Spent Total Time Spent (In Minutes): 50 Discharge Plan Discharge Items Patient Disposition: Home - Self-Care Reason For Visit: AMS Discharge Diagnosis: UTI Confusion Condition on Discharge: Good Activity: Resume your previous activity Non-emergency contact: Primary Care Provider Call non-emergency contact if: you have any medication questions, your symptoms worsen and you have a fever Follow-up/Referrals: Jenna Acosta MD [Primary Care Provider] - (Date & Time 06/26/2022 2:00 PM Provider Jenna Acosta MD [facility] ) Diet: Carb Consistent or DM2 and Heart Healthy Diet Texture: Easy to Chew Addtl Attending Provider Instructions: Please return to ER if confusion, fever/chills, nausea/vomiting or new symptoms Pending Studies at Discharge: Yes Studies:: Urine culture Stand-Alone Forms: My [facility] [employer], Smoking Cessation Medications and DC Order Prescriptions: New Saccharomyces boulardii [Florastor] 250 mg Capsule 250 mg PO DAILY 10 Days Qty: 10 0RF vancomycin 125 mg capsule 125 mg PO DAILY 12 Days Qty: 12 0RF Rx Instructions: take 125 mg 4 times per day for 10 days; 2 times per day for 7 days; once vanessa ly for 7 days; once every 2-3 days for 2-8 weeks ciprofloxacin HCl 250 mg tablet 250 mg PO BID 3 Days Qty: 6 0RF Continued atorvastatin 40 mg Tablet 40 mg PO QDD metoprolol succinate 50 mg Tablet Extended Release 24 Hr 50 mg PO DAILY cholecalciferol (vitamin D3) [Vitamin D3] 25 mcg (1,000 unit) Tablet 25 mcg PO DAILY acetaminophen 325 mg Tablet 650 mg PO Q4 PRN (Reason: Pain) Eliquis 5 mg Tablet 5 mg PO BID 30 Days Qty: 60 1RF losartan 25 mg tablet 25 mg PO QAM latanoprost 0.005 % drops 1 drp OPB HS magnesium oxide 400 mg magnesium Tablet 400 mg PO DAILY Discharge Orders: Discharge Order (Routine); Ordered 06/20/22 Ordered By: Magdaleno Munson/Other Patient Handouts: Prediabetes Admission Data Admit Date/Time: 06/19/22 14:01 Attending Provider: Magdaleno Gonzalez Admit Provider: Magdaleno Gonzalez Primary Care Provider: Jenna Acosta Other Providers: Magdaleno Gonzalez Other Interventions: Discharge Summary Assessment (RN) Last Done: 06/20/22 15:15
== END 2022-06-20 14:45 | disposition home or self-care (01) | DRG 689 ==
LOC: ED 09:08 → SUATTDRO 14:01 → INTOOBSV 14:01 → EDINP 14:01

== ENCOUNTER 2024-09-29 09:42 | Inpatient (IN) ==
--- NOTE | 2024-09-29 09:54 | Emergency Department Note ---
Impression & Plan Stroke-like symptoms, Paroxysmal A-fib, History of seizure, Aphasia, Hypertension, History of CVA (cerebrovascular accident) ED Provider Note NAME: KEIKO CANALES AGE: 84 SEX: F : 1940 ARRIVES VIA: Ambulance INFORMANT: Patient ED PROVIDER(S): Shalom Phillips MD CHIEF COMPLAINT: Strokelike symptoms, stroke alert. 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 She also appeared to be more confused than her baseline. EMS suspected possible left-sided weakness. Stroke alert was activated prior to arrival due to acute onset of symptoms which family report occurred at approximately 830 this morning and the daughter who arrived at the bedside confirms that the patient was normal prior to that and she had helped her take a shower and get breakfast. Patient did take her medications this morning including her Keppra as well as her Eliquis. Patient is not a TNK candidate due to history of ICH and having taken her Eliquis this morning. On evaluation patient is no distress, afebrile blood pressure initially 220/110s and vital signs otherwise stable. Following CT imaging patient's blood pressure was downtrending to 180/130s. Patient exhibits baseline expressive aphasia but appears to be following commands appropriately. Gross vision is intact as the patient is able to count fingers. Family arrived to the bedside and did feel the patient was nearly returned to her baseline though mildly more confused than usual and they need noted that the patient's repetitive blinking and facial fasciculations had not occurred for a couple of months but were noted when she was admitted to [facility] following presentation to [facility] for seizure- like activity which is when she was started on Keppra. EKG without overt acute ischemia. CXR negative for acute cardiopulmonary process per my personal preliminary review/interpretation. WBC and platelets within normal limits. H/H proximal to prior values. Chemistry without metabolic acidosis. Electrolytes and LFTs without significant abnormality. High-sensitivity troponin 9.6, within normal limits. UA without evidence of infection. Given patient's facial fasciculations were reported by the daughter to have occurred when the patient was having seizure activity in June patient was loaded with 2g of Keppra. CT of the head was negative for ICH. CTA of the head and neck demonstrated a 5 mm segment of high-grade stenosis/near occlusion involving the proximal P1 segment of the right posterior cerebral artery which is age-indeterminate but new when compared to 2021. Given CTA findings Case was reviewed with Dr. Mckeon, [facility] telestroke neurology. Appreciate consultation and recommendations following telestroke evaluation via telestroke monitor. Agrees patient is not a TNK candidate per above. Given location of high-grade stenosis of the posterior cerebral artery this is not amenable to endovascular treatment. Moreover agrees that symptoms are suspicious for possible seizure activity given history of this. Recommends increasing patient's Keppra to 1000mg twice daily. Full recommendations will be detailed in the consult note. Appreciate consultation and recommendations. Case was discussed with Randal Avendaño, with Dr. Meghan mckinney who will evaluate the patient for admission. Further management per admitting team. Triage Nursing notes reviewed and agree them. Prior/external medical records reviewed Vital Signs: reviewed Differential diagnosis: Infection, dehydration, metabolic abnormality, hypo/hyperglycemia, electrolyte disturbance, anemia, hypoxia, cardiac sources, intracerebral event, toxicologic, neurologic, as well as other pathologies. ER treatment provided: See below. Diagnostics interpreted by me: ECG: Atrial fibrillation with slow ventricular response, 57 bpm, no ectopy, no overt ST elevation or depression, QTc 474, QRS 80. Cardiac Monitoring: An order for continuous cardiac monitoring was placed and demonstrated atrial fibrillation, 57 bpm, no ectopy. Laboratory studies: See below Imaging studies: See below Consultation(s): Dr. Mckeon, [facility] [place] telestroke neurology. Randal Avendaño [facility], with Dr. Meghan mckinney. HPI: Per MDM. ROS: See above HPI for pertinent positives & negatives. A total of 10 systems reviewed and were otherwise negative. VITALS:See Below PHYSICAL EXAMINATION: GENERAL: Awake, alert, in no distress HENT: Normocephalic, atraumatic. Oropharynx with dry mucous membranes and otherwise unremarkable. EYES: Normal conjunctiva. Sclera non-icteric. EOMI. No nystamgus. PEARRL. NECK: Supple. No nuchal rigidity. FROM. No JVD. RESPIRATORY: Clear to auscultation. CARDIAC: Regular rate, irregular rhythm. Extremities warm and well perfused. Pulses equal. ABDOMEN: Soft, non-distended. No tenderness to palpation. No rebound or guarding. No masses. MUSCULOSKELETAL: Chest examination reveals no tenderness. The back is symmetrical on inspection without obvious abnormality. There is no CVA tenderness to palpation. No joint edema. LOWER EXTREMITIES: Calves are equal size bilaterally and non-tender. No edema. No discoloration. NEURO: Baseline expressive aphasia but appears to be following commands appropriately. Gross vision is intact as the patient is able to count fingers. 5/5 strength and SILT x 4 extremities. SKIN: No rash or jaundice noted. Shalom Phillips MD Past Med/Surg History Problem List (Updated 09/30/24 @ 01:40 by Shalom Phillips MD) History of CVA (cerebrovascular accident) (Acute) Aphasia (Acute) Stroke-like symptoms (Acute) History of seizure (Acute) Chronic anticoagulation (Acute) Acute UTI (urinary tract infection) (Acute) Episode of confusion Paroxysmal A-fib (Acute) Change in mental status (Acute) Hyperlipidemia Prediabetes Aphasia (Acute) Hypertension (Acute) CVA (cerebral vascular accident) Hypertension Cerebrovascular accident (Acute) Aphasia (Acute) Medical History Acute metabolic encephalopathy Hx of Clostridium difficile infection Family History Other Family history non-contributory Social History (Updated 09/29/24 @ 17:50 by Shi Estrada PA-C) Smoking Status: Never smoker Hx Alcohol Use: No Hx Substance Use: No Preferred Language: Scottish Communication Ability: Impaired Communication Ability Comment: confused Lens Cutter Required: No Beliefs That Will Affect Care: None marital status: Current Living Situation: Family Other Information That Helps Us Care for You: No Feels Safe at Home: Yes Safety Concerns: Feels Safe At This Time Assistive Devices: Glasses and Hearing Aid - Bilateral Allergies Allergies Allergy/AdvReac Type Severity Reaction Status Date / Time methylprednisolone Allergy Intermediate USED WHEN Verified 06/19/22 15:05 HAD POSION RAZ AND BROKE OUT IN HIVES Home Meds Home Medications Medication Instructions Recorded Confirmed latanoprost 0.005 % eye drops 1 drp OPB HS 12/03/21 09/29/24 magnesium oxide 400 mg PO DAILY 12/03/21 09/29/24 acetaminophen 325 mg tablet 650 mg PO Q4 PRN Pain 01/09/22 09/29/24 atorvastatin 40 mg tablet 40 mg PO QDD 01/09/22 09/29/24 cholecalciferol (vitamin D3) 25 25 mcg PO DAILY 01/09/22 09/29/24 mcg (1,000 unit) tablet (Vitamin D3) carvedilol 3.125 mg tablet 3.125 mg PO BID 09/29/24 09/29/24 escitalopram oxalate 10 mg tablet 10 mg PO DAILY 09/29/24 09/29/24 levetiracetam 500 mg tablet 750 mg PO BID 09/29/24 09/29/24 losartan 50 mg tablet 50 mg PO DAILY 09/29/24 09/29/24 Previous Rx's Medication Instructions Recorded apixaban 5 mg tablet (Eliquis) 5 mg PO BID 30 days #60 tabs 01/13/22 Results & Data (ED) Vital Signs Vital Signs - 24 hr 09/29/24 09:58 09/29/24 10:01 09/29/24 10:02 Temperature 36.8 C Temperature Source Oral Pulse Rate 58 L 57 L Pulse Rate [Apical] Pulse Rate from SpO2 Sensor Respiratory Rate 16 Respiratory Effort / Characteristics Non-Labored Spontaneous Respiratory Depth Normal Respiratory Pattern Blood Pressure 221/114 H 186/131 H Blood Pressure [Right Arm] Blood Pressure Mean 149 152 Blood Pressure Mean [Right Arm] Blood Pressure Position [Right Arm] Pulse Oximetry 96 Oxygen Delivery Method Room Air Sepsis Recent Fever Within 48 Hours No Sepsis New/Unexplained Change in Mental Status No Sepsis Action Taken by Nursing No Action Required 09/29/24 10:14 09/29/24 10:18 09/29/24 10:32 Temperature Temperature Source Pulse Rate 53 L Pulse Rate [Apical] Pulse Rate from SpO2 Sensor 52 L Respiratory Rate 16 Respiratory Effort / Characteristics Respiratory Depth Respiratory Pattern Blood Pressure 192/124 H 197/110 H Blood Pressure [Right Arm] Blood Pressure Mean 140 126 Blood Pressure Mean [Right Arm] Blood Pressure Position [Right Arm] Pulse Oximetry 96 Oxygen Delivery Method Sepsis Recent Fever Within 48 Hours Sepsis New/Unexplained Change in Mental Status Sepsis Action Taken by Nursing 09/29/24 10:39 09/29/24 10:42 09/29/24 10:46 Temperature Temperature Source Pulse Rate 57 L 58 L Pulse Rate [Apical] Pulse Rate from SpO2 Sensor Respiratory Rate 13 15 Respiratory Effort / Characteristics Respiratory Depth Respiratory Pattern Blood Pressure 219/111 H Blood Pressure [Right Arm] Blood Pressure Mean 127 Blood Pressure Mean [Right Arm] Blood Pressure Position [Right Arm] Pulse Oximetry 98 Oxygen Delivery Method Sepsis Recent Fever Within 48 Hours Sepsis New/Unexplained Change in Mental Status Sepsis Action Taken by Nursing 09/29/24 11:00 09/29/24 11:00 09/29/24 11:15 Temperature Temperature Source Pulse Rate 52 L 52 L Pulse Rate [Apical] 56 L Pulse Rate from SpO2 Sensor Respiratory Rate 22 19 16 Respiratory Effort / Characteristics Non-Labored Spontaneous Respiratory Depth Normal Respiratory Pattern Regular Blood Pressure 183/95 H 158/96 H Blood Pressure [Right Arm] 183/95 H Blood Pressure Mean 128 135 Blood Pressure Mean [Right Arm] 124 Blood Pressure Position [Right Arm] Sitting Pulse Oximetry 97 95 94 Oxygen Delivery Method Room Air Room Air Room Air Sepsis Recent Fever Within 48 Hours Sepsis New/Unexplained Change in Mental Status Sepsis Action Taken by Nursing 09/29/24 11:42 Temperature Temperature Source Pulse Rate 54 L Pulse Rate [Apical] Pulse Rate from SpO2 Sensor 54 L Respiratory Rate 17 Respiratory Effort / Characteristics Respiratory Depth Respiratory Pattern Blood Pressure 153/77 H Blood Pressure [Right Arm] Blood Pressure Mean 102 Blood Pressure Mean [Right Arm] Blood Pressure Position [Right Arm] Pulse Oximetry 96 Oxygen Delivery Method Room Air Sepsis Recent Fever Within 48 Hours Sepsis New/Unexplained Change in Mental Status Sepsis Action Taken by Nursing Laboratory Data Attestation: I reviewed the patient's lab results. 09/29/24 10:03 09/29/24 10:03 Lab Results 09/29/24 09/29/24 09/29/24 Range/Units 10:03 10:04 11:42 WBC 5.76 (4.8-10.8) K/ul RBC 3.86 L (4.20-5.40) M/uL Hgb 11.9 L (12.0-16.0) g/dl Hct 36.0 L (37.0-47.0) % MCV 93.3 (80.0-100.0) fL MCH 30.8 (25.0-34.0) pg MCHC 33.1 (32.0-36.0) g/dL RDW Std Deviation 42.4 (36.4-46.3) fL RDW Coeff of Ralph 12.3 (11.5-14.5) % Plt Count 162 (130-400) K/uL MPV 12.0 (9.4-12.4) fL Immature Gran % (Auto) 0.5 % Neut % (Auto) 46.9 % Lymph % (Auto) 34.2 % Karn[place] % (Auto) 8.3 % Eos % (Auto) 8.9 % Baso % (Auto) 1.2 % Neut # (Auto) 2.70 (1.40-6.50) K/uL Lymph # (Auto) 1.97 (1.20-3.40) K/uL Karnes # (Auto) 0.48 (0.11-0.59) K/uL Eos # (Auto) 0.51 H (0.00-0.50) K/uL Baso # (Auto) 0.07 (0.00-0.20) K/uL Immature Gran # (Auto) 0.03 (0.01-0.20) K/uL PT 12.1 H (9.0-12.0) Seconds INR 1.1 (0.9-1.1) APTT 28 (21-31) Seconds PTT Ratio 1.0 Sodium 137 (136-145) mmol/L Potassium 4.1 (3.5-5.1) mmol/L Chloride 105 (98-107) mmol/L Carbon Dioxide 30 (21-32) mmol/L Anion Gap 2 L (3-11) BUN 14 (6-23) mg/dl Creatinine 0.80 (0.6-1.2) mg/dl Est Cr Clr Drug Dosing Not Reportable eGFR 72.61 BUN/Creatinine Ratio 17.5 (10-20) Glucose 113 H (70-99(Fasting)) mg/dl POC Glucose 106 H (70-99) mg/dl Calcium 8.6 (8.6-10.3) mg/dl Phosphorus 3.3 (2.5-4.9) mg/dl Magnesium 1.7 (1.7-2.4) mg/dl Total Bilirubin 0.7 (0.2-1.0) mg/dl AST 21 (13-39) U/L ALT 19 (7-52) U/L Alkaline Phosphatase 96 (34-104) U/L Troponin I High Sens 9.6 (0-14) pg/ml Total Protein 5.9 L (6.0-8.3) gm/dl Albumin 3.2 L (3.4-5.0) gm/dl Globulin 2.7 (2.5-4.0) gm/dl Albumin/Globulin Ratio 1.2 (0.9-2) Urine Color Yellow Urine Appearance Clear (Clear) Urine pH 7.5 (4.5-7.5) Ur Specific [place] 1.025 (1.000-1.030) Urine Protein Negative (Negative) Urine Glucose (UA) Negative (Negative) Urine Ketones Negative (Negative) Urine Blood 1+ H (Negative) Urine Nitrite Negative (Negative) Urine Bilirubin Negative (Negative) Urine Urobilinogen Negative (Negative) Ur Leukocyte Esterase Negative (Negative) Urine WBC (Auto) 0-5 (0-5) /hpf Urine RBC (Auto) 3-5 H (0-2) /hpf U Hyaline Cast (Auto) 0-2 (0-2) /lpf U Epithel Cells (Auto) 0-2 (0-2) /hpf Urine Bacteria (Auto) None Seen (None Seen) Urine Opiates Screen Neg (Neg) Ur Methadone, Qual Neg (Neg) Urine Fentanyl Screen Neg (Neg) Urine Barbiturates Neg (Neg) Ur Phencyclidine (PCP) Neg (Neg) U Amphetamin/Meth Scrn Neg (Neg) MDMA (Ecstasy) Screen Neg (Neg) U Benzodiazepines Scrn Neg (Neg) Ur Cocaine Metabolite Neg (Neg) U Marijuana (THC) Screen Neg (Neg) Administered Medications Acetaminophen (Acetaminophen 325 Mg Tab) 650 mg PO Q4H PRN PRN Reason: Pain or Fever Stop: 10/29/24 14:22 Last Admin: 09/29/24 15:35 Dose: 650 mg Documented By: OO Apixaban (Apixaban 5 Mg Tablet) 5 mg PO BID ASHLEY Stop: 10/29/24 20:59 Last Admin: 09/29/24 22:46 Dose: 5 mg Documented By: VIMAL Atorvastatin Calcium (Atorvastatin 40 Mg Tab) 40 mg PO QDD ASHLEY Stop: 10/29/24 16:29 Last Admin: 09/29/24 16:50 Dose: 40 mg Documented By: RONI Carvedilol (Carvedilol 3.125 Mg Tab) 3.125 mg PO BID ASHLEY Stop: 10/29/24 20:59 Last Admin: 09/29/24 22:47 Dose: Not Given Documented By: VIMAL Latanoprost (Latanoprost 0.005% Op Soln 2.5 Ml Btl) 1 drops OPB HS ASHLEY Stop: 10/29/24 20:59 Last Admin: 09/29/24 22:47 Dose: 1 drops Documented By: VIMAL Levetiracetam (Levetiracetam Oral Soln 100mg/Ml) 1,000 mg PO BID ASHLEY Stop: 10/29/24 20:59 Last Admin: 09/29/24 22:48 Dose: 1,000 mg Documented By: VIMAL Discontinued Medications Sodium Chloride (Nss) 500 mls @ 999 mls/hr IV .Q31M ONE Stop: 09/29/24 10:00 Last Infusion: 09/29/24 11:34 Dose: Infused Documented By: VIMAL(2) Admin: 09/29/24 10:19 Dose: 999 mls/hr Documented By: DOMINGO Sodium Chloride (Nss) 500 mls @ 125 mls/hr IV .Q4H ASHLEY Stop: 09/29/24 15:44 Last Infusion: 09/29/24 15:02 Dose: Infused Documented By: Admin: 09/29/24 11:38 Dose: 125 mls/hr Documented By: VIMAL(2) Ioversol (Optiray 320 125ml) 120 ml IV ONCE ONE Stop: 09/29/24 09:58 Last Admin: 09/29/24 09:57 Dose: 120 ml Documented By: PADMINI Levetiracetam (Levetiracetam 500 Mg/5 Ml Vial) 2,000 mg IV NOW STA Stop: 09/29/24 10:34 Last Admin: 09/29/24 10:45 Dose: 2,000 mg Documented By: DOMINGO Levetiracetam (Levetiracetam 500 Mg/5 Ml Vial) 1,000 mg IV NOW STA Stop: 09/29/24 23:05 Last Admin: 09/29/24 23:59 Dose: 1,000 mg Documented By: VIMAL Miscellaneous (Patient's Height &/Or Weight Needed) 1 each N/A NOW STA Stop: 09/29/24 09:59 Last Admin: 09/29/24 15:05 Dose: Not Given Documented By: OO Miscellaneous (Patient's Height &/Or Weight Needed) 1 each N/A Q2H STA Stop: 09/29/24 14:38 Last Admin: 09/29/24 15:03 Dose: 1 each Documented By: OO Imaging Data Radiologist's Impression: Chest X-Ray 09/29/24 09:29 XR chest 1V portable CLINICAL HISTORY: neuro deficit, acute stroke suspected COMPARISON STUDY: 01/09/2022 FINDINGS: There is mild cardiomegaly without pulmonary vascular congestion. No effusion, consolidation, or pneumothorax. IMPRESSION: No acute findings. ACT 112: Negative or not required by law. Electronically signed by: Rancho Solorzano M.D. 09/29/2024 10:[address] 09/29/24 09:29 CT head/brain wo con CLINICAL HISTORY: neuro deficit, acute stroke suspected. TECHNIQUE: Multiple axial CT images of the head were obtained without contrast. A dose lowering technique was utilized adhering to the principles of ALARA. CT DOSE: 1014 COMPARISON: 06/19/2022 FINDINGS: There are stable old infarctions at the parietal lobes bilaterally with stable ex vacuo dilatation of the posterior left lateral ventricle. There are moderate chronic small vessel ischemic changes. No intracranial hemorrhage seen. No mass effect or midline shift. No skull fracture. IMPRESSION: No acute findings. ACT 112: Negative or not required by law. The above report was generated using voice recognition software. It may contain grammatical, syntax or spelling errors. Electronically signed by: Rancho Solorzano M.D. 09/29/2024 10:17 AM Head CTA 09/29/24 09:29 CT angio head w con, CT angio neck with con CLINICAL HISTORY: 84 years-old Female with neuro deficit, acute stroke suspected. Acute strokelike symptoms COMPARISON STUDY: Head CT same day and also 06/19/2022, CTA head and neck 12/03/2021 TECHNIQUE: Following the IV administration of 120 cc of Optiray, CT angiogram of the head and neck was performed from the aortic arch to the skull apex. Images are reviewed in the axial, sagittal, and coronal planes. 3-D MIPS images are created and assessed. IV contrast was administered without complication. All measurements were obtained according to NASCET criteria. A dose lowering technique was utilized adhering to the principles of ALARA. CT DOSE: 1014.69 mGy.cm FINDINGS: CT BRAIN: Dictated separately. Involutional changes with chronic microvascular ischemic disease. Encephalomalacia redemonstrated related to chronic bilateral cerebral infarcts. Ex vacuo ventriculomegaly of the left lateral ventricle. CT ANGIOGRAM OF THE HEAD AND NECK: Three-vessel morphology of the thoracic aortic arch. There is patency of the innominate and image subclavian arteries. The common carotid arteries are widely patent. There is tortuosity involving the distal cervical segments of the patent internal carotid arteries. The bilateral anterior and middle cerebral arteries are also patent. Dominant left vertebral artery is widely patent. The right vertebral artery is also patent. Patent basilar and left posterior cerebral arteries. There is a 5 mm segment of high-grade stenosis involving the proximal P1 segment of the right posterior cerebral artery with near occlusion, image 136 series 6 which is new from the prior study. Flow is noted within the distal aspects of the right posterior cerebral artery. There is no aneurysm, or dissection identified. Dural sinuses appear patent. 7 mm left upper lobe solid nodule on image 2 series 7 is stable from prior compatible with benign etiology. Spiculated and irregular and subsolid nodule within the apical posterior segment left upper lobe on image 73 measures 1.8 x 1.1 cm, previously 1.3 cm. Degenerative changes of the spine. Thyroid goiter. IMPRESSION: 1. 5 mm segment of high-grade stenosis/near occlusion involves the proximal P1 segment of the right posterior cerebral artery which is age indeterminate however is new compared to the 2022 exam. 2. Otherwise unremarkable CTA of the head and neck. 3. Please refer to the same day head CT for additional findings. 4. 1.8 cm spiculated irregular subsolid nodular density of the left lung apex has mildly increased in size from 2022. Differential considerations include a slowly growing adenomatous lesion versus fibrotic scarring. Six-month follow-up chest CT recommended. ACT 112: Negative or not required by law. The above report was generated using voice recognition software. It may contain grammatical, syntax or spelling errors. Electronically signed by: Arash To M.D. 09/29/2024 10:14 AM Neck CTA 09/29/24 09:29 CT angio head w con, CT angio neck with con CLINICAL HISTORY: 84 years-old Female with neuro deficit, acute stroke suspected. Acute strokelike symptoms COMPARISON STUDY: Head CT same day and also 06/19/2022, CTA head and neck 12/03/2021 TECHNIQUE: Following the IV administration of 120 cc of Optiray, CT angiogram of the head and neck was performed from the aortic arch to the skull apex. Images are reviewed in the axial, sagittal, and coronal planes. 3-D MIPS images are created and assessed. IV contrast was administered without complication. All measurements were obtained according to NASCET criteria. A dose lowering technique was utilized adhering to the principles of ALARA. CT DOSE: 1014.69 mGy.cm FINDINGS: CT BRAIN: Dictated separately. Involutional changes with chronic microvascular ischemic disease. Encephalomalacia redemonstrated related to chronic bilateral cerebral infarcts. Ex vacuo ventriculomegaly of the left lateral ventricle. CT ANGIOGRAM OF THE HEAD AND NECK: Three-vessel morphology of the thoracic aortic arch. There is patency of the innominate and image subclavian arteries. The common carotid arteries are widely patent. There is tortuosity involving the distal cervical segments of the patent internal carotid arteries. The bilateral anterior and middle cerebral arteries are also patent. Dominant left vertebral artery is widely patent. The right vertebral artery is also patent. Patent basilar and left posterior cerebral arteries. There is a 5 mm segment of high-grade stenosis involving the proximal P1 segment of the right posterior cerebral artery with near occlusion, image 136 series 6 which is new from the prior study. Flow is noted within the distal aspects of the right posterior cerebral artery. There is no aneurysm, or dissection identified. Dural sinuses appear patent. 7 mm left upper lobe solid nodule on image 2 series 7 is stable from prior compatible with benign etiology. Spiculated and irregular and subsolid nodule within the apical posterior segment left upper lobe on image 73 measures 1.8 x 1.1 cm, previously 1.3 cm. Degenerative changes of the spine. Thyroid goiter. IMPRESSION: 1. 5 mm segment of high-grade stenosis/near occlusion involves the proximal P1 segment of the right posterior cerebral artery which is age indeterminate however is new compared to the 2021 exam. 2. Otherwise unremarkable CTA of the head and neck. 3. Please refer to the same day head CT for additional findings. 4. 1.8 cm spiculated irregular subsolid nodular density of the left lung apex has mildly increased in size from 202. Differential considerations include a slowly growing adenomatous lesion versus fibrotic scarring. Six-month follow-up chest CT recommended. ACT 112: Negative or not required by law. The above report was generated using voice recognition software. It may contain grammatical, syntax or spelling errors. Electronically signed by: Arash To M.D. 09/29/2024 10:14 AM Discharge Plan Visit Data Chief Complaint: Stroke Alert ED Provider: Shalom Phillips Discharge Problem: Stroke-like symptoms, Paroxysmal A-fib, History of seizure, Aphasia, Hypertension, History of CVA (cerebrovascular accident) Patient Disposition: Admitted As Inpatient Condition: Serious Discharge Instructions Interventions: ED Discharge Assessment Last Done: 09/29/24 13:56 Discharge Problem: Hypertension Qualifiers: Hypertension type: unspecified Qualified Code(s): I10 - Essential (primary) hypertension
[2024-09-29] MEDS: OPTIRAY 320 125ml IV ONE (09:57)
[2024-09-29 10:15] LABS: Basophils # (auto) 0.07 K/uL (0.00-0.20); Basophils % (auto) 1.2 %; Eosinophils # (auto) 0.51 K/uL (0.00-0.50); Eosinophils % (auto) 8.9 %; Hemoglobin 11.9 g/dl (12.0-16.0); Immature Granulocytes # (auto) 0.03 K/uL (0.01-0.20); Immature Granulocytes % (auto) 0.5 %; Lymphocytes # (auto) 1.97 K/uL (1.20-3.40); Lymphocytes % (auto) 34.2 %; Mean Corpuscular Hemoglobin 30.8 pg (25.0-34.0); Mean Corpuscular Hgb Conc 33.1 g/dL (32.0-36.0); Mean Corpuscular Volume 93.3 fL (80.0-100.0); Monocytes # (auto) 0.48 K/uL (0.11-0.59); Monocytes % (auto) 8.3 %; Neutrophils % (auto) 46.9 %; Platelet Count 162 K/uL (130-400); RDW Coefficient of Variation 12.3 % (11.5-14.5); RDW Standard Deviation 42.4 fL (36.4-46.3); Red Blood Count 3.86 M/uL (4.20-5.40); White Blood Count 5.76 K/ul (4.8-10.8)
--- NOTE | 2024-09-29 10:15 | CT Scan Report ---
CT angio head w con, CT angio neck with con CLINICAL HISTORY: 84 years-old Female with neuro deficit, acute stroke suspected. Acute strokelike symptoms COMPARISON STUDY: Head CT same day and also 06/19/2022, CTA head and neck 12/03/2021 TECHNIQUE: Following the IV administration of 120 cc of Optiray, CT angiogram of the head and neck wa s performed from the aortic arch to the skull apex. Images are reviewed in the axial, sagittal, and c oronal planes. 3-D MIPS images are created and assessed. IV contrast was administered without complic ation. All measurements were obtained according to NASCET criteria. A dose lowering technique was uti lized adhering to the principles of ALARA. CT DOSE: 1014.69 mGy.cm FINDINGS: CT BRAIN: Dictated separately. Involutional changes with chronic microvascular ischemic disease. Encephalomalac ia redemonstrated related to chronic bilateral cerebral infarcts. Ex vacuo ventriculomegaly of the le ft lateral ventricle. CT ANGIOGRAM OF THE HEAD AND NECK: Three-vessel morphology of the thoracic aortic arch. There is patency of the innominate and image sub clavian arteries. The common carotid arteries are widely patent. There is tortuosity involving the di stal cervical segments of the patent internal carotid arteries. The bilateral anterior and middle cer ebral arteries are also patent. Dominant left vertebral artery is widely patent. The right vertebral artery is also patent. Patent ba silar and left posterior cerebral arteries. There is a 5 mm segment of high-grade stenosis involving the proximal P1 segment of the right posterior cerebral artery with near occlusion, image 136 series 6 which is new from the prior study. Flow is noted within the distal aspects of the right posterior c erebral artery. There is no aneurysm, or dissection identified. Dural sinuses appear patent. 7 mm left upper lobe solid nodule on image 2 series 7 is stable from prior compatible with benign keesha ology. Spiculated and irregular and subsolid nodule within the apical posterior segment left upper lo be on image 73 measures 1.8 x 1.1 cm, previously 1.3 cm. Degenerative changes of the spine. Thyroid g oiter. IMPRESSION: 1. 5 mm segment of high-grade stenosis/near occlusion involves the proximal P1 segment of the right p osterior cerebral artery which is age indeterminate however is new compared to the 2021 exam. 2. Otherwise unremarkable CTA of the head and neck. 3. Please refer to the same day head CT for additional findings. 4. 1.8 cm spiculated irregular subsolid nodular density of the left lung apex has mildly increased in size from 2021. Differential considerations include a slowly growing adenomatous lesion versus fibro tic scarring. Six-month follow-up chest CT recommended. ACT 112: Negative or not required by law. The above report was generated using voice recognition software. It may contain grammatical, syntax o r spelling errors. Electronically signed by: Arash To M.D. 09/29/2024 10:14 AM
--- NOTE | 2024-09-29 10:18 | CT Scan Report ---
CT head/brain wo con CLINICAL HISTORY: neuro deficit, acute stroke suspected. TECHNIQUE: Multiple axial CT images of the head were obtained without contrast. A dose lowering tech nique was utilized adhering to the principles of ALARA. CT DOSE: 1014 COMPARISON: 06/19/2022 FINDINGS: There are stable old infarctions at the parietal lobes bilaterally with stable ex vacuo dil atation of the posterior left lateral ventricle. There are moderate chronic small vessel ischemic joanne nges. No intracranial hemorrhage seen. No mass effect or midline shift. No skull fracture. IMPRESSION: No acute findings. ACT 112: Negative or not required by law. The above report was generated using voice recognition software. It may contain grammatical, syntax o r spelling errors. Electronically signed by: Rancho Solorzano M.D. 09/29/2024 10:17 AM
[2024-09-29] MEDS: SODIUM CHLORIDE 0.9% 500 ML IV ONE (10:19)
[2024-09-29 10:35] LABS: Alanine Aminotransferase 19 U/L (7-52); Albumin Globulin Ratio 1.2 (0.9-2); Albumin Level 3.2 gm/dl (3.4-5.0); Alkaline Phosphatase 96 U/L (34-104); Anion Gap 2 (3-11); Aspartate Aminotransferase 21 U/L (13-39); BUN Creatinine Ratio 17.5 (10-20); Bilirubin,Total 0.7 mg/dl (0.2-1.0); Blood Urea Nitrogen 14 mg/dl (6-23); Calcium 8.6 mg/dl (8.6-10.3); Carbon Dioxide 30 mmol/L (21-32); Chloride 105 mmol/L (98-107); Globulin 2.7 gm/dl (2.5-4.0); Glucose 113 mg/dl (70-99(Fasting)); Magnesium 1.7 mg/dl (1.7-2.4); Potassium 4.1 mmol/L (3.5-5.1); Sodium 137 mmol/L (136-145); Total Protein 5.9 gm/dl (6.0-8.3)
[2024-09-29 10:42] LABS: Troponin I High Sensitivity 9.6 pg/ml (0-14)
[2024-09-29] MEDS: levETIRAcetam 500 MG/5 ML VIAL IV STA ×2 (10:45→23:59)
[2024-09-29 10:55] LABS: INR 1.1 (0.9-1.1); Partial Thromboplastin Time 28 Seconds (21-31); Prothrombin Time 12.1 Seconds (9.0-12.0)
--- NOTE | 2024-09-29 10:56 | XRay Report ---
XR chest 1V portable CLINICAL HISTORY: neuro deficit, acute stroke suspected COMPARISON STUDY: 01/09/2022 FINDINGS: There is mild cardiomegaly without pulmonary vascular congestion. No effusion, consolidatio n, or pneumothorax. IMPRESSION: No acute findings. ACT 112: Negative or not required by law. Electronically signed by: Rancho Solorzano M.D. 09/29/2024 10:55 AM
[2024-09-29] MEDS: SODIUM CHLORIDE 0.9% 500 ML IV SCH (11:38)
[2024-09-29 12:00] LABS: Appearance Urine Clear (Clear); Bacteria Urine Automated None Seen (None Seen); Bilirubin Urine Negative (Negative); Blood Urine 1+ (Negative); Cast Urine Automated 0-2 /lpf (0-2); Color Urine Yellow; Epithelial Cell Urine Auto 0-2 /hpf (0-2); Glucose Urine UA Negative (Negative); Ketones Urine Negative (Negative); Leukocyte Esterase Urine Negative (Negative); Nitrite Urine Negative (Negative); Protein Urine Negative (Negative); Specific Gravity Urine 1.025 (1.000-1.030); Urobilinogen Urine Negative (Negative); WBC Urine Automated 0-5 /hpf (0-5); pH Urine 7.5 (4.5-7.5)
--- OUTSIDE RECORDS SUMMARY | 2024-09-29 12:06 | External Medical Summary | Summary of Care ---
Author Name Unknown Organization [facility] Address [address] [facility] [place] [address] Phone [phone] Care Team Providers Care Surgical Technologist Name Role Phone Jenna Acosta MD Primary Care Provid er Reason for Visit * Reason Comments EEG Encounter Details Date Type Department Care Team (Late st Contact Info) Description 08/17/2024 8:15 AM EDT NeuroDiagnostic Study Neurophysiology, [facility] [address] [place] [address] [facility], Neurophys Tech [address] [place] [id number] Allergies Active Allergy Reactions Criticality Noted Date Comments Methylprednisolone High 12/03/2021 Other Reaction(s): USED WHEN HAD POSION RAZ AND BROKE OUT IN HIVES documented as of this encounter (statuses as of 09/03/2024) Medications latanoprost (XALATAN) 0.005 % ophthalmic solution Instill 1 Drop into both eyes at bedtime. 9 Active Magnesium Oxide 400 MG Oral Capsule Take by mouth 1 Capsule in the morning. 90 Capsule 3 2 Active Vitamin D3 25 MCG (1000 UT) Oral Capsule Take by mouth 1 Capsule in the morning. 90 Capsule 3 2 Active Apixaban 5 MG Oral Tablet (Eliquis)Indicati ons:Paroxysmal atrial fibrillation (HCC),PVC (premature ventricular contraction) Take 1 Tablet by mouth in the morning and 1 Tablet before bedtime. 180 Tablet 3 4 Active Atorvastatin Calcium 40 MG Oral Tablet (Lipitor)Indicati ons:Dyslipidemia, goal LDL below 70 Take 1 Tablet by mouth every afternoon. 90 Tablet 3 4 Active Escitalopram Oxalate 10 MG Oral Tablet (Lexapro)Indicati ons:Anhedonia,Anx iety Take 1 Tablet by mouth in the morning. 90 Tablet 3 4 Active Carvedilol 3.125 MG Oral Tablet (Coreg)Indication s:Paroxysmal atrial fibrillation (HCC),Essential hypertension with goal blood pressure less than 130/80 Take 1 Tablet by mouth 2 times a day with morning and evening meals. 180 Tablet 3 5 Active levETIRAcetam 500 MG Oral Tablet (Keppra)Indicatio ns:Hospital discharge follow-up,Partial symptomatic epilepsy with complex partial seizures, not intractable, without status epilepticus (HCC) Take 1.5 Tablets by mouth in the morning and 1.5 Tablets before bedtime. 270 Tablet 5 Active Losartan Potassium 50 MG Oral Tablet (Cozaar)Indicatio ns:Essential hypertension with goal blood pressure less than 130/80 Take 1 Tablet by mouth in the morning. 90 Tablet 1 5 Active documented as of this encounter (statuses as of 09/03/2024) Active Problems Problem Noted Date Diagnosed Date Protein-calorie malnutrition 06/26/2022 Hyperuricemia 02/05/2022 Encephalopathy 01/16/2022 Right sided weakness 01/16/2022 Paroxysmal atrial fibrillation 12/09/2021 Dysphagia following cerebral infarction 12/10/19 Aphasia following cerebral infarction 12/09/2021 Ischemic stroke without coma 12/04/2021 Subdural hemorrhage 12/04/2021 Subarachnoid hemorrhage 12/04/2021 Prediabetes 12/04/2021 HTN, goal below 130/80 12/30/2018 Ventricular ectopy 12/30/2018 Impaired mobility and ADLs documented as of this encounter (statuses as of 09/03/2024) Resolved Problems Problem Noted Date Diagnosed Date Resolved Date Persistent hypoactive deliri 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/2021): Post TNK administration documented as of this encounter (statuses as of 09/03/2024) Immunizations Name Administration Dates Next Due COVID-19 mRNA, LNP-s, No Pre serve, 2-Dose Series (Moderna) 07/26/2020,06/28/2020 Pneumococcal Conjugate Vaccine, 20-valent (Prevn ar20) 12/14/2022 Seasonal Influenza, High Dos e, Trivalent, PF, IM (Fluzone HD) 03/17/2024 Seasonal Influenza, PF, 6 M & above, IM , (FluLaval or Fluzone) 03/13/2017 Seasonal Influenza, Quadrivalent Hd (Fluzone Hd) 05/06/2023,02/09/2022 documented as of this encounter Social History Tobacco Use Types Packs/Day Years Used Date Smoking Tobacco: Never Smokeless Tobacco: Never Alcohol Use Standard Drinks/Week Comments Not Currently 0 (1 standard drink = 0.6 oz pur e alcohol) PHQ-2 Answer Date Recorded PHQ Adult Total Score 0 11/27/2021 Comments No Sex and Gender Information Value Date Recorded Sex Assigned at Female 06/26/2022 1:07 PM EST Legal Sex Female 5:57 AM EST Gender Identity Female 06/26/2022 1:07 PM EST Sexual Orientation Straight 06/26/2022 1: 07 PM EST documented as of this encounter Plan of Treatment Upcoming Encounters Date Type Department Care Team (Late st Contact Info) Description 09/18/2024 1:20 PM EDT Office Visit [facility] Ana Barney [address] [phone] Jenna Acosta MD [address] [phone] 10/23/2024 10:30 AM EDT Office Visit Cardiology, [facility] [address] [place] [phone] Viola Leonard CRNP [address] [place] [address] 11/23/2024 11:00 AM EDT Imaging Radiology [address] [place] [phone] Health Maintenance Due Date Last Done Comments DXA Scan 1940 Depression Screening 1952 DTap/Tdap Vaccines (1 - Tdap) 1959 Zoster Vaccines (1 of 2) 1990 Adult Wellness Visit 2006 COVID-19 Vaccine ( season) 2024 07/26/2020, 06/28/2020 GFR 03/17/2025 03/17/2024, 07/18, 04/10/2023, Additional history exists HbA1c 03/17/2025 03/17/2024, 07/18, 12/14/2022, Additional history exists Albumin/Creatinine Ratio 07/21/2025 07/21/2022 Pneumococcal Vaccine: 50+ Years Completed 12/14/2022 Influenza Vaccine (FLU shot) Completed , 05/06/2023, 02/09/2022, Additional history exists HPV (Gardasil) Vaccine Aged Out No lo nger eligible based on patient's age to complete this topic Hepatitis B Vaccine Aged Out No longe r eligible based on patient's age to complete this topic MENINGOCOCCAL (MENACTRA/MENVEO) Aged Out No longer eligible based on patient's age to complete this topic Meningitis B Vaccine (Bexsero/Trumemba) Aged Out No longer eligible based on patient's age to complete this topic documented as of this encounter Medical Devices Not on filedocumented as of this encounter Visit Diagnoses Diagnosis 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]- Primary Localization-related (focal) (partial) epilepsy and epileptic syndromes with complex partial seizures, without mention of intractable epilepsy documented in this encounter Advance Directives Documents on File Type Date Recorded Patient Ophthalmic Lens Inspector Expl anation Advance Directives and Living Will 11/16/2022 Janey Vogel ADVANCE DIRECTIVE / LIVING WILL Power of Slab Grinder 11/16/2022 POWER OF A TTORNEY Power of Slab Grinder 06/15/2018 POWER OF A TTORNEY POWER OF CARON * Full Code (Latest Code Status on File) Date Activated Date Inactivated Comments 12/04/2021 3:55 AM 12/23/2021 12:16 PM This order r eflects the patients wishes and were consensually agreed upon. Question Answer Comments Discussion of Advance Directives occurred with: Family Healthcare Agents on File Name Relationship Healthcare Agent Relationship Communication Janey Vogel Adult Child Health Care Ag ent (per Health Care Power of Slab Grinder document) [email or web address] Care Teams Surgical Technologist Relationship Specialty Start Date End Date Jenna Acosta MD [address] [place] [address] PCP - General Family Medicine 07/23/24 documented as of this encounter
--- OUTSIDE RECORDS SUMMARY | 2024-09-29 12:06 | External Medical Summary | Summary of Care ---
Author Name Unknown Organization [facility] Address [address] [place] [address] Phone [phone] Care Team Providers Care Button And Buckle Maker Name Role Phone Jenna Acosta MD Primary Care Provid er Reason for Visit * Reason Comments Hospital Follow-Up Seizure Disorder New patient referral from [facility] for seizure Last seen in [facility] 05/08/22 * Evaluate & Treat - Unlimited Visits (Within 3 days (urgent)) - Authorized Specialty Diagnoses / Procedures Referred By Valentino sprague Referred To Contact Neurology Diagnoses Hospital discharge follow-up Viola Stewart CRNP [address] [place] [address] Phone: tel: fax: Referral ID Status Reason Start Date Expiration Date Visits Requested Visits Authorized [id number] Authorized Specialty Services Required 07/23/[phone] Encounter Details Date Type Department Care Team (Late st Contact Info) Description 07/31/2024 1:00 PM EDT Office Visit [facility]rology [facility] Nilda Castaneda [address] [place] [address] Bogdan Virk DO [address] [place] [address] 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 5 Active documented as of this encounter (statuses as of 07/31/2024) Active Problems Problem Noted Date Diagnosed Date Protein-calorie malnutrition 06/26/2022 Hyperuricemia 02/05/2022 Encephalopathy 01/16/2022 Right sided weakness 01/16/2022 Paroxysmal atrial fibrillation 12/09/2021 Dysphagia following cerebral infarction 12/10/19 22 Aphasia following cerebral infarction 12/09/2021 Ischemic stroke without coma 12/04/2021 Subdural hemorrhage 12/04/2021 Subarachnoid hemorrhage 12/04/2021 Prediabetes 12/04/2021 HTN, goal below 130/80 12/30/2018 Ventricular ectopy 12/30/2018 Impaired mobility and ADLs documented as of this encounter (statuses as of 07/31/2024) Resolved Problems Problem Noted Date Diagnosed Date Resolved Date Persistent hypoactive deliri 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/2021): Post TNK administration documented as of this encounter (statuses as of 07/31/2024) Immunizations Name Administration Dates Next Due COVID-19 [...] PM EST documented as of this encounter Last Filed Vital Signs Vital Sign Reading Time Taken Comments Blood Pressure 150/88 07/31/2024 12:51 PM EDT Pulse 78 07/31/2024 12:51 PM EDT Temperature 36.1 °C (96.9 °F) 07/31/2024 1 2:51 PM EDT Respiratory Rate 20 07/31/2024 12:5 1 PM EDT Oxygen Saturation 96% 07/31/2024 12: 51 PM EDT Inhaled Oxygen Concentration - - Weight 91.5 kg (201 lb 11.2 oz) 025 12:51 PM EDT Height - - Body Mass Index 32.56 03/17/2024 12:58 PM EDT documented in this encounter Nursing Notes * Terra Aiken LPN - 07/31/2024 12:50 PM EDT Chief Complaint Patient presents with Hospital Follow-Up Seizure Disorder New patient referral from [facility] for seizure Last seen in [facility] 05/08/22 Pt was discharged from [facility] 07/24/24 documented in this encounter Plan of Treatment Upcoming Encounters Date Type Department Care Team (Late st Contact Info) Description 08/14/2024 11:45 AM EDT NeuroDiagnostic Study Neurophysiology, [address] [place] [address] [facility], Neurophys Tech [address] [place] [address] [place] [address] 08/17/2024 8:15 AM EDT NeuroDiagnostic [address], [address] [address] [facility], Neurophys Tech [address] [place] [address] [place] [address] 09/18/2024 1:20 PM EDT [facility] [address] [phone] Jenna Acosta MD [address] [address] 10/23/2024 10:30 AM EDT Office Visit Cardiology, 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)- Primary Localization-related (focal) (partial) epilepsy and epileptic syndromes with complex partial seizures, without mention of intractable epilepsy documented in this encounter Advance Directives Documents on File Type Date Recorded Patient Application Systems Architect Expl anation Advance Directives and Living Will 11/16/2022 Janey Vogel ADVANCE DIRECTIVE / LIVING WILL Power of Wildlife Conservation Professor 11/16/2022 POWER OF A TTORNEY Power of Wildlife Conservation Professor 06/15/2018 POWER OF A TTORNEY POWER OF AATTORNEY * Full Code (Latest Code Status on [...] Ag ent (per Health Care Power of Wildlife Conservation Professor document) [email or web address] Care Teams Button And Buckle Maker Relationship Specialty Start Date End Date Jenna Acosta MD [address] [address] PCP - General Family Medicine 07/23/24 documented as of this encounter
--- OUTSIDE RECORDS SUMMARY | 2024-09-29 12:06 | External Medical Summary | Summary of Care ---
Author Name Unknown Organization [facility] Address [address] [facility] [place] [address] Phone [phone] Care Team Providers Care Torpedo Specialist Name Role Phone Jenna Acosta MD Primary Care Provid er Reason for Visit * Reason Onset Date Comments No Show 05/03/2024 [facility] No Show Auto mation Encounter Details Date Type Department Care Team (Late st Contact Info) Description 05/03/2024 Telephone Cardiology, [facility] [address] [place] [address] Rhiannon Acosta CRNP [address] [place] [phone] No Show ([place] No Show Automation) Allergies Active Allergy Reactions Criticality Noted Date Comments Methylprednisolone High 12/03/2021 Other Reaction(s): USED WHEN HAD POSION RAZ AND BROKE OUT IN HIVES documented as of this encounter (statuses as of 05/03/2024) Medications latanoprost (XALATAN) 0.005 % ophthalmic solution Instill 1 Drop into both eyes at bedtime. 9 Active Magnesium Oxide 400 MG Oral Capsule Take by mouth 1 Capsule in the morning. 90 Capsule 3 2 Active Vitamin D3 25 MCG (1000 UT) Oral Capsule Take by mouth 1 Capsule in the morning. 90 Capsule 3 2 Active Metoprolol Succinate ER 50 MG Oral Tablet Extended Release 24 Hour (toPROL XL)Indications:P aroxysmal atrial fibrillation (HCC),PVC (premature ventricular contraction),Ess ential hypertension with goal blood pressure less than 130/80 Take 1.5 Tablets by mouth in the morning. 135 Tablet 3 3 Active Cefuroxime Axetil 250 MG Oral Tablet (Ceftin)Indicati ons:Urinary frequency Take 1 Tablet by mouth in the morning and 1 Tablet before bedtime. 14 Tablet 4 Active Additional Information Patient not taking.Reported on 07/22/2023 Losartan Potassium 25 MG Oral Tablet (Cozaar)Indicati ons:Essential hypertension with goal blood pressure less than 130/80 Take 1 Tablet by mouth in the morning. 90 Tablet 2 4 Active Apixaban 5 MG Oral Tablet (Eliquis)Indicat ions:Paroxysmal atrial fibrillation (HCC),PVC (premature ventricular contraction) Take 1 Tablet by mouth in the morning and 1 Tablet before bedtime. 180 Tablet 3 4 Active Atorvastatin Calcium 40 MG Oral Tablet (Lipitor)Indicat ions:Dyslipidemi a, goal LDL below 70 Take 1 Tablet by mouth every afternoon. 90 Tablet 3 4 Active Escitalopram Oxalate 10 MG Oral Tablet (Lexapro)Indicat ions:Anhedonia,A nxiety Take 1 Tablet by mouth in the morning. 90 Tablet 3 4 Active documented as of this encounter (statuses as of 05/03/2024) Active Problems Problem Noted Date Diagnosed Date [...] as of this encounter (statuses as of 05/03/2024) Resolved Problems Problem Noted Date Diagnosed Date Resolved Date Persistent hypoactive deliri 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/2021): Post TNK administration documented as of this encounter (statuses as of 05/03/2024) Immunizations Name Administration Dates Next Due COVID-19 [...] PM EST documented as of this encounter Miscellaneous Notes * Telephone Encounter - Iah, No Show - 05/03/2024 4:43 AM EST Dear Yanci Torres, Looks like you missed an appointment with RHIANNON ACOSTA on 04/30/2024 at 10:30 AM. If you haven't already rescheduled, you have a couple of options: Reschedule in [email or web address] Call us at [phone] Can't make a future appointment? Cancel and let someone else have your spot! It's easy to do via Uversityt or by calling us. [facility]. We hope to see you back in our office soon. Sincerely, RHIANNON ACOSTA documented in this encounter Plan of Treatment Upcoming Encounters Date Type Department Care Team (Late st Contact Info) Description 07/23/2024 3:00 PM EST Office Visit Cardiology, [facility] [address] [place] [address] Rhiannon Acosta CRNP [address] [place] [address] 09/18/2024 1:20 PM EDT Office Visit [facility] Ana Barney [address] [address] [phone] Jenna Acosta MD [address] [address] Health Maintenance Due Date Last Done Comments DXA Scan 1940 DTap/Tdap Vaccines (1 - Tdap) 1959 Zoster Vaccines (1 of 2) 1990 Adult Wellness Visit 2006 Depression Screening 11/27/2022 11/27/2021 COVID-19 Vaccine (3 - season) 2024 07/26/2020, 06/28/2020 GFR 03/17/2025 03/17/2024, 07/18, 04/10/2023, Additional history exists HbA1c 03/17/2025 03/17/2024, 07/18, 12/14/2022, Additional history exists Albumin/Creatinine Ratio 07/21/2025 07/21/2022 Pneumococcal Vaccine: 65+ Years Completed 12/14/2022 Influenza Vaccine (FLU shot) [...] Not on filedocumented as of this encounter Advance Directives Documents on File Type Date Recorded Patient Tire Bagger Expl anation Advance Directives and Living Will 11/16/2022 Janey Vogel ADVANCE DIRECTIVE / LIVING WILL Power of Underwear Finisher 11/16/2022 POWER OF A TTORNEY Power of Underwear Finisher 06/15/2018 POWER OF A TTORNEY POWER OF [...] Ag ent (per Health Care Power of Underwear Finisher document) [email or web address] Care [email or web address] Torpedo Specialist Relationship Specialty Start Date End Date Jenna Acosta MD [address] [place] [address] PCP - General Family Medicine 11/27/21 documented as of this encounter
--- OUTSIDE RECORDS SUMMARY | 2024-09-29 12:06 | External Medical Summary | Summary of Care ---
Author Name Unknown Organization [facility] Address [address] [place] [address] Phone [phone] Care Team Providers Care Senior Account Representative Name Role Phone Jenna Acosta MD Primary Care Provid er Reason for Visit * Reason Comments EEG Encounter Details Date Type Department Care Team (Late st Contact Info) Description 08/14/2024 11:45 AM EDT NeuroDiagnostic Study Neurophysiology, [facility] [address] [place] [address] [facility], Neurophys Tech [address] [place] [phone] Allergies Active Allergy Reactions Criticality Noted Date [...] Description 09/18/2024 1:20 PM EDT Office Visit [facility] Ana Barney [address] [phone] Jenna Acosta MD [address] [place] [phone] 10/23/2024 10:30 AM EDT Office Visit Cardiology, [facility] [address] [place] [phone] Viola Leonard CRNP [address] [place] [address] 11/23/2024 11:00 AM EDT Imaging Radiology [address] [place] [phone] Scheduled Orders Name Type Priority Associated Diagnoses [...] Documents on File Type Date Recorded Patient Server Engineer Expl anation Advance Directives and Living Will 11/16/2022 Janey Vgoel ADVANCE DIRECTIVE / LIVING WILL Power of Manager Process Excellence 11/16/2022 POWER OF A TTORNEY Power of Manager Process Excellence 06/15/2018 POWER OF A TTORNEY POWER OF AATTORANISHA * Full Code (Latest Code Status on [...] Ag ent (per Health Care Power of Manager Process Excellence document) [email or web address] Care Teams Senior Account Representative Relationship Specialty Start Date End Date Jenna Acosta MD [address] [address] PCP - General Family Medicine 07/23/24 documented as of this encounter
--- OUTSIDE RECORDS SUMMARY | 2024-09-29 12:06 | External Medical Summary | Summary of Care ---
Author Name Unknown Organization [facility] Address [address] [facility] [place] [address] Phone [phone] Care Team Providers Care Igniter Capper Name Role Phone Jenna Acosta MD Primary Care Provid er Encounter Details Date Type Department Care Team (Late st Contact Info) Description 07/24/2024 Orders Only Cardiology, [facility] [address] [place] [phone] Viola Stewart CRNP [address] [place] [phone] Paroxysmal atrial fibrillation (HCC)* Allergies Active Allergy Reactions Criticality Noted Date Comments Methylprednisolone High 12/03/2021 Other Reaction(s): USED WHEN HAD POSION RAZ AND BROKE OUT IN HIVES documented as of this encounter (statuses as of 07/26/2024) Medications latanoprost (XALATAN) 0.005 % ophthalmic solution Instill 1 Drop into both eyes at bedtime. 9 Active Magnesium Oxide 400 MG Oral Capsule Take by mouth 1 Capsule in the morning. 90 Capsule 3 2 Active Vitamin D3 25 MCG (1000 UT) Oral Capsule Take by mouth 1 Capsule in the morning. 90 Capsule 3 2 Active Losartan Potassium 25 MG Oral Tablet (Cozaar)Indicatio ns:Essential hypertension with goal blood pressure less than 130/80 Take 1 Tablet by mouth in the morning. 90 Tablet 2 4 Active Apixaban 5 MG Oral Tablet (Eliquis)Indicati [...] MG Oral Tablet (Coreg)Indication s:Paroxysmal atrial fibrillation (HCC),HTN, goal below 130/80 Take 1 Tablet by mouth 2 times a day with morning and evening meals. 180 Tablet 3 5 Active levETIRAcetam 500 MG Oral Tablet (Keppra)Indicatio ns:Hospital discharge follow-up,Partial symptomatic epilepsy with complex partial seizures, not intractable, without status epilepticus (HCC) Take 1.5 Tablets by mouth in the morning and 1.5 Tablets before bedtime. 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 (12/20/2021): Post TNK administration documented as of this encounter (statuses as of 07/26/2024) Immunizations Name Administration Dates Next Due COVID-19 [...] Care Team (Late st Contact Info) Description 07/27/2024 10:00 AM EDT [facility] [address] [phone] Panfilo Soria PA-C [address] [address] 07/31/2024 1:00 PM EDT Office Visit Neurology [facility]addeus Tsai [place] [address] [facility] [phone] Bogdan Virk, DO [address] [facility] [place] [address] 09/18/2024 1:20 PM EDT Office Visit [facility], [facility] [address] [facility] [phone] Jenna Acosta MD [address] [place] [address] 10/23/2024 10:30 AM EDT Office Visit Cardiology, [facility] [address] [facility] [address] Viola Stewart [facility] [address] [facility] [address] Scheduled Orders Name Type Priority Associated Diagnoses Orde r Schedule EKG EKG Routine Paroxysmal atrial fibrillation (HCC) Expected: 07/26/2024 (Approximate), Expires: 08/24/2024 Health Maintenance Due Date Last Done Comments [...] as of this encounter Visit Diagnoses Diagnosis Paroxysmal atrial fibrillation (HCC)- Primary Atrial fibrillation documented in this encounter Advance Directives Documents on File Type Date Recorded Patient Electronic Warfare Operator Expl anation Advance Directives and Living Will 11/16/2022 Janey Vogel ADVANCE DIRECTIVE / LIVING WILL Power of Banking Paralegal 11/16/2022 POWER OF A TTORNEY Power of Banking Paralegal 06/15/2018 POWER OF A TTORNEY POWER OF [...] Ag ent (per Health Care Power of Banking Paralegal document) [email or web address] Care Teams Igniter Capper Relationship Specialty Start Date End Date Jenna Acosta MD [address] [place], [place] [address] [address] PCP - General Family Medicine 07/23/24 documented as of this encounter
--- OUTSIDE RECORDS SUMMARY | 2024-09-29 12:06 | External Medical Summary | Summary of Care ---
Author Name Unknown Organization [facility] Address [address] [place] [address] Phone [phone] Care Team Providers Care Appian Developer Name Role Phone Jenna Acosta MD Primary Care Provid er Reason for Referral * Evaluate & Treat - Unlimited Visits (Within 10 days (routine)) - Authorized Specialty Diagnoses / Procedures Referred By Valentino sprague Referred To Contact HOME CARE / Home Care Diagnoses Physical deconditioning Jenna Acosta MD [address] [place] [id number] Phone: tel: fax: Referral ID Status Reason Start Date Expiration Date Visits Requested Visits Authorized [id number] Authorized Specialty Services Required 09/18/[phone] Question Answer Referral Priority Within 10 days (routine) Where should this appointment be scheduled? [facility] Comments Documentation of [id number] Encounter Addendum Patient Name: Yanci Torres I certify that this patient is under my care and that I, or a nurse practitioner or physician's library circulation assistant working with me, had a [id number] encounter that meets the physician [id number] encounter requirements with this patient on: 09/18/24 The encounter with the patient was in whole, or in part, for the following medical condition, which is the primary reason for home health care (List medical condition): Gait dysfunction I certify that, based on my findings, the following services are medically necessary home health services: Physical Therapy To provide the following care/treatments: (All hospitalists not following the patient after discharge should complete this section): Jenna Acosta MD Primary Care Physician to follow home care plan of care after discharge: Jenna Acosta MD My clinical findings support the need for the above services because: physical deconditioning Further, I certify that my clinical findings support that this patient is homebound (i.e. Absences from home require considerable and taxing effort and are for medical reasons or jewish services or infrequently or of short duration when for other reason) because: Physician Signature: Date of Signature: Physician Printed Name: Jenna Acosta MD Reason for Visit * Reason Comments Follow Up Patient is here for a 6 month follow up. Reports no concerns.Patient here with daughter. Encounter Details Date Type Department Care Team (Late st Contact Info) Description 09/18/2024 1:20 PM EDT Office Visit [facility] [address] [phone] Jenna Acosta MD [address] [facility] [place] [id number] Encephalopathy, unspecified type*; Risk and functional assessment; Physical deconditioning Allergies Active Allergy Reactions Criticality Noted Date Comments Methylprednisolone High 12/03/2021 Other Reaction(s): USED WHEN HAD POSION RAZ AND BROKE OUT IN HIVES documented as of this encounter (statuses as of 09/18/2024) Medications latanoprost (XALATAN) 0.005 % ophthalmic solution [...] 5 Active levETIRAcetam 500 MG Oral Tablet (Keppra)Krystleo ns:Hospital discharge follow-up,Partial symptomatic epilepsy with complex partial seizures, not intractable, without status epilepticus (HCC) Take 1.5 Tablets by mouth in the morning and 1.5 Tablets before bedtime. 270 Tablet 5 Active Losartan Potassium 50 MG Oral Tablet (Cozaar)Rivas ns:Essential hypertension with goal blood pressure less than 130/80 Take 1 Tablet by mouth in the morning. 90 Tablet 1 5 Active documented as of this encounter (statuses as of 09/18/2024) Active Problems Problem Noted Date Diagnosed Date [...] as of this encounter (statuses as of 09/18/2024) Resolved Problems Problem Noted Date Diagnosed Date Resolved Date Persistent hypoactive deliri 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/2021): Post TNK administration documented as of this encounter (statuses as of 09/18/2024) Immunizations Name Administration Dates Next Due COVID-19 [...] Sign Reading Time Taken Comments Blood Pressure 146/82 09/18/2024 1:28 PM EDT Pulse 66 09/18/2024 1:28 PM EDT Temperature 36.1 °C (97 °F) 09/18/2024 1:28 PM EDT Respiratory Rate 16 09/18/2024 1:28 PM EDT Oxygen Saturation 95% 09/18/2024 1:28 PM EDT Inhaled Oxygen Concentration - - Weight 91.7 kg (202 lb 1.6 oz) 09/18/2024 1:28 P M EDT Height 167.6 cm (5' 6") 09/18/2024 1:28 PM EDT Body Mass Index 32.62 09/18/2024 1:28 PM EDT documented in this encounter Patient Instructions * Patient Instructions* Bela Ferraro, MED ASSIST - 09/18/2024 1:31 PM EDT Patient Instructions - Fall Prevention (This education is for all patients over 65 regardless of symptoms) Remember to take your current medications as prescribed. In order to prevent falls, you are encouraged to: Exercise Utilize assistive/adaptive devices Avoid multifocal lenses when walking Avoid hazards in home Maintain a regular toileting schedule Any questions please contact our office. Preventing Falls in the Home (This education is for all patients over 65 regardless of symptoms) As you get older, falls are more likely. That’s because your reaction time slows. Your muscles and joints may also get stiffer, making them less flexible. Illness, medications, and vision changes can also affect your balance. A fall could leave you unable to live on your own. To make your home safer, follow these tips: Floors Put nonskid pads under area rugs Remove throw rugs Replace worn floor coverings Tack carpets firmly to each step on carpeted stairs. Put nonskid strips on the edges of uncarpeted stairs Keep floors and stairs free of clutter and cords Arrange furniture so there are clear pathways Clean up any spills right away Bathrooms Install grab bars in the tub or shower Apply nonskid strips or put a nonskid rubber mat in the tub or shower Sit on a bath chair to bathe Use bathmats with nonskid backing Lighting Keep a flashlight in each room Put a nightlight along the pathway between the bedroom and the bathroom [employer] Patient Education Copyright© 2008 - 2010 [employer] except where otherwise noted Preventing Falls: Exercises to Improve Balance, Flexibility, Strength, and Staying Power (This education is for all patients over 65 regardless of symptoms) Certain types of exercises may help make you less likely to fall. Try the ones below. Or do other exercises that your healthcare provider suggests. Depending on your health, you may need to start slowly. Don’t let that stop you. Even small amounts of exercise can help you. Be sure to talk to yourhealthcare provider before starting any exercise program. Improve Balance Many types of exercise can help improve balance. Fredy chi and yoga are good examples. Here’s another one to try. You can do it anytime and almost anywhere. Stand next to a counter or solid support. Push yourself up onto your tiptoes. Hold for 5 seconds. If you start to lose your balance, hold on to the counter. Rest and repeat 5 times. Work up to holding for 20 to 30 seconds, if you can. Increase Flexibility Being more flexible makes it easier for you to move around safely. Try exercises like the seated hamstring stretch. Sit in a chair and put one foot on a stool. Straighten your leg and reach with both hands down either side of your leg. Reach as far down your leg as you can. Hold for about 20 seconds. Go back to the starting position. Then repeat 5 times. Switch legs. Build Strength “Resistance” exercises help build strength. You can do them without equipment. Or you can use weights, elastic bands, or special machines. One such exercise is called the biceps curl. You can hold a 1 pound weight or even a can of soup. Do this exercise at least 3 times a week. Strive for everyday. Sit up straight in a chair. Keep your elbow close to your body and your wrist straight. Bend your arm, moving your hand up to your shoulder. Then slowly lower your arm. Repeat 5 times. Switch to the other arm. Build Your Staying Power “Aerobic” exercises make your heart and lungs stronger so you can keep moving longer. Walking and swimming are two of the best types of exercises you can do. Using a stationary bike is great, too. Find an aerobic exercise that you enjoy. Start slowly and build up. Even 5 minutes is helpful. Aimfor a goal of 30 minutes, at least 3 times a week. You don’t have to do 30 minutes in one session. Break it up and walk a little throughout the day. More Helpful Tips Start easy. Slowly work up to doing more. Talk with your healthcare provider about the best exercises for you. Call senior centers or health clubs about exercise programs. If needed, have a family member watch you walk every so often to check your stability. Exercise with a friend. Choose an activity you both enjoy. Try exercises that you can do anytime, anywhere. Here are two examples. Have someone with you when you first try these: Practice walking by placing one foot right in front of the other. Stand up and sit down 10 times. Repeat this throughout the day. [employer] Patient Education Copyright© 2008 [employer] except where otherwise noted. Preventing Falls: Moving Safely Using a Cane or Walker (This education is for all patients over 65 regardless of symptoms) Keep the cane away from your feet so you don’t trip. A walking aid, such as a cane or walker, can help you stay more independent and avoid falls. Remember to keep your walking aid within easy reach when you’re in a chair or in bed. And learn how to use it safely so you don’t injure yourself. Using a Cane If you have a stronger side, hold the cane on that side. Get your balance. Move the cane and your weaker leg forward. Support your weight on both the cane and your weaker side. Step with your stronger leg. Start again from step 1. If you’re using a folding walker, be sure you know how to lock it open. Check that it’s locked open before each use. Using a Walker Roll the walker (or lift it, if you’re using one without wheels) forward about 12 inches. Step forward with your weaker leg first. Use the walker to help keep your balance. Bring your other foot forward to the center of the walker. Start again from step 1. Helpful Tips Check with your healthcare provider about the right walking aid to use. Ask about a walker with a seat attached. Check the tips of your cane or walker to make sure they have nonskid covers. Move slowly from room to room. Don’t siddiqui. Sit down to get dressed. Use a nabil pack or backpack to keep your hands free. Get help for jobs that mean climbing, even on a stepstool. [employer] Patient Education Copyright© 2008 - 2010 [employer]) except where otherwise noted. Urinary Incontinence Plan of Care Documentation: (This education is for all patients over 65 regardless of symptoms) Current medications reconciled. Patient encouraged to: Practice kegal exercises Provide education materials Use the restroom every 2 hours throughout the day Limit caffeine, alcohol, spicy foods and acidic foods Keep a bladder diary Limit fluid intake 3-4 hours before bed Lose weight Prevent constipation Take fluid pills at a time when you can get to the bathroom quickly Control sugar better if diabetic Limit fluid intake to 60 oz. per day Wear support stockings (TEDs)if you have edema Bela Ferraro, MED ASSIST 09/18/2024 Kegel Exercises Kegel exercises don’t require special clothing or equipment. They’re easy to learn and simple to do. And if you do them right, no one can tell you’re doing them, so they can be done almost anywhere. Your doctor, nurse, or physical therapist can answer any questions you have and help you get started. A Weak Pelvic Floor The pelvic floor muscles may weaken due to aging, and vaginal childbirth, injury, surgery, chronic cough, or lack of exercise. If the pelvic floor is weak, your bladder and other pelvic organs may sag out of place. The urethra may also open too easily and allow urine to leak out. Kegel exercises can help you strengthen your pelvic floor muscles so they can better support the pelvic organs and control urine flow. How Kegel Exercises Are Done Try each of the Kegel exercises described below. When you’re doing them, try not to move your leg, buttock, or stomach muscles. While you’re urinating, try to stop the flow of urine. Start and stop it as often as you can. Contract as if you were stopping your urine stream, but do it when you’re not urinating. Tighten your rectum as if trying not to pass gas. Contract your anus, but don’t move your buttocks. Helpful Hints Do your Kegels as often as you can. The more you do them, the faster you’ll feel the results. Pick an activity you do often as a reminder. For instance, do your Kegels every time you sit down. Tighten your pelvic floor before you sneeze, get up from a chair, cough, laugh, or lift. This protects your pelvic floor from injury and can help prevent urine leakage. Try to hold each Kegel for a slow count to five. You probably won’t be able to hold them for thatlong at first, but keep practicing. It will get easier as your pelvic floor gets stronger. Eventually, special weights that you place in your vagina may be recommended to help make your Kegels even more effective. [employer] Patient Education Copyright© 2008 - 2010 [employer] except where otherwise noted. Here are some helpful tips for your urinary incontinence: (This education is for all patients over 65 regardless of symptoms) Practice Kegel exercises Use the restroom every 2 hours throughout the day Limit caffeine, alcohol, spicy foods, and acidic foods Keep a bladder diary Limit fluid intake 3-4 hours before bed Lose weight Prevent constipation Take fluid pills at a time when can get to the bathroom quickly Control sugar better if diabetic Limit fluid intake to 60 oz. per day Any questions, please feel free to contact our office. documented in this encounter Progress Notes * Jenna Acosta MD - 09/18/2024 1:39 PM EDT Images from the original note were not included. Subjective Yanci Torres is a 84 year old female that presents for Follow Up (Patient is here for a 6 monthfollow up. Reports no concerns./Patient here with daughter. ) History of Present Illness Yanci Torers is an 84 year old female with paroxysmal atrial fibrillation and ischemic stroke who presents for a recheck. She is accompanied by her daughter, who is her primary caregiver. She has a history of paroxysmal atrial fibrillation, hypertension, hyperlipidemia, prediabetes, ischemic stroke, and septal hemorrhage with residual expressive aphasia. Her stroke occurred in 2021, affecting the left MCA territory, and she received TPA in the emergency department. She is on ongoing medical management for her conditions, including Eliquis and Toprol for AFib, and losartan and a beta mckenzie for hypertension. She experienced a seizure on July 17, 2024, while traveling with her daughter, which led to hospitalization. She was initially taken to [facility], then transferred to [facility]. During her hospital stay, a CT of the head showed an acute on subacute pontine infarct, and an MRI was negative for an acute infarct. An EEG showed abnormal electrical activity from the left hemisphere, likely related to her prior stroke. She was started on Keppra. Her daughter reports ongoing concerns about progressive anhedonia and irritability, for which she is on Lexapro, but there has been no noticeable improvement. She shows a lack of motivation and interest in activities, preferring to stay at home and showing no interest in visiting family or engagingin activities. She has urinary incontinence and uses pull-ups with a diaper. This incontinence has been present since her stroke, with minimal leakage. She is eating well but sleeps a lot and has become weaker, making it difficult to move around. Her daughter is concerned about her long-term care needs as she becomes weaker. She is followed by a serial CT scan program for pulmonary nodules. She lives in her daughter's basement and has a call jackson and life alert button for emergencies. Her daughter is concerned about her lack of interest and motivation, as well as her cognitive abilities, although she does not believe callie perez has dementia. Objective BP 146/82 (BP Site: Left Arm, BP Position: Sitting) | Pulse 66 | Temp 97 °F (36.1 °C) (Tympanic) | Resp 16 | Ht 5' 6" (1.676 m) | Wt 202 lb 1.6 oz (91.7 kg) | SpO2 95% | BMI 32.62 kg/m² | BSA 2.07m² BP Readings from Last 3 Encounters: 09/18/24 146/82 07/31/24 150/88 07/27/24 123/75 Wt Readings from Last 3 Encounters: 09/18/24 202 lb 1.6 oz (91.7 kg) 07/31/24 201 lb 11.2 oz (91.5 kg) 07/27/24 203 lb 6.4 oz (92.3 kg) BMI Readings from Last 3 Encounters: 09/18/24 32.62 kg/m² 07/31/24 32.56 kg/m² 07/27/24 32.83 kg/m² Physical Exam Vitals reviewed and is normotensive / afebrile / and not tachycardic General: No acute distress. Neuro: Alert Pleasant & interactive. Respiratory: Good inspiratory effort, no labored breathing. CTAB CV: irreg irreg no M R G HEENT: Conjunctivae appear clear. No swelling noted face or lips. Skin: No rash visible on exposed skin areas, normal coloration & appears dry. Psych: Normal affect. Fluent speech. Very hard of hearing, poor contact. Results RADIOLOGY CT of the head: Acute on subacute pontine infarct (07/17/2024) CTA of the head and neck: Negative for carotid artery stenosis (07/17/2024) MRI of the brain: Negative for acute infarct (07/17/2024) DIAGNOSTIC EEG: Abnormal electrical activity from the left hemisphere, likely from post or prior stroke (07/17/2024) 72-hour EEG: Generalized delta/theta slowing suggestive of nonspecific encephalopathy, occasional GPDs with triphasic appearance, no seizures during the study (08/01/2024) Assessment and Plan Assessment & Plan Ischemic stroke with residual expressive aphasia Ischemic stroke in 2021 with residual expressive aphasia. Recent seizure activity possibly related to prior stroke. Seizure disorder Recent seizure on July 17, 2024, with hospitalization. EEG showed abnormal electric activity from the left hemisphere, likely related to prior stroke. Currently on Keppra. Encephalopathy EEG findings suggest nonspecific encephalopathy, likely related to previous strokes. May contributeto cognitive and motivational decline. 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 Currently on Lexapro 10 mg, but no significant improvement. Family reports worsening anhedonia and lack of engagement. - Initiate home health physical therapy to improve mobility and strength. - Consider occupational therapy to encourage engagement in activities. Paroxysmal atrial fibrillation Managed with Eliquis and Toprol. Follow-up with cardiology is ongoing. Hypertension Well controlled with losartan and a beta mckenzie. Hyperlipidemia Managed with atorvastatin. Prediabetes Mild prediabetes under ongoing management. No recent labs completed prior to this visit. Urinary incontinence Urinary incontinence since stroke, managed with pull-ups. Follow-up Follow-up plans for ongoing management and specialist consultations. - Schedule follow-up with neurology. - Return for follow-up with primary care in six months. - Plan for annual labs in February. Recording duration: 20 minutes Encephalopathy, unspecified type (Primary) Risk and functional assessment Physical deconditioning - HOME HEALTH REFERRAL OP Wrap-Up Follow-up: Return in about 6 months (around 03/21/2025). | Check-out note: Please get her on Dr. Virk's return scheduling - reason - seizure, abnormal EEG, encephalopathy Text in this note was generated using an [employer] documentation service. I discussed the use of a device to record and summarize our discussion today. All persons present during the encounter consented to its use. * Bela Ferraro MED ASSIST - 09/18/2024 1:31 PM EDT Fall Risk Plan of Care Documentation: - Current medications reconciled Patient encouraged to: - Exercise - Provide education materials for Core strengthening - Utilize assistive/adaptive devices - Provide education materials - Avoid multifocal lenses when walking - Avoid hazards in home - Provide education materials - Maintain a regular toileting schedule RICKY Mccracken 09/18/2024 documented in this encounter Plan of Treatment Upcoming Encounters Date Type Department Care Team (Late st Contact Info) Description 10/23/2024 10:30 AM EDT Office Visit Cardiology, [facility] [address] [place] [phone] Viola Stewart CRNP [address] [place] [id number] 11/06/2024 1:40 PM EDT Office Visit Neurology [facility] [address] [facility] [place] [phone] Bogdan Virk, [address] [facility] [place] [address] 11/23/2024 11:00 AM EDT Imaging Radiology [address] [place] [phone] 03/23/2025 2:00 PM EST [facility] [address] [phone] Jenna Ac[facility] MD [facility] [place] [address] Scheduled Referrals Name Type Priority Associated Diagnoses Orde r Schedule HOME HEALTH REFERRAL OP Referral Within 10 days (routine) Physical deconditioning Ordered: 09/18/2024 Health Maintenance Due Date Last Done Comments DXA Scan 1940 Depression Screening 1952 DTap/Tdap Vaccines (1 - Tdap) 1959 Zoster Vaccines (1 of 2) 1990 Adult Wellness Visit 2006 COVID-19 Vaccine ( - season) 2024 07/26/2020, 06/28/2020 GFR 03/17/2025 [...] as of this encounter Visit Diagnoses Diagnosis Encephalopathy, unspecified type- Primary Risk and functional assessment Screening for unspecified condition Physical deconditioning Debility, unspecified documented in this encounter Advance Directives Documents on File Type Date Recorded Patient International Trade Manager Expl anation Advance Directives and Living Will 11/16/2022 Janey Vogel ADVANCE DIRECTIVE / LIVING WILL Power of Box Office Agent 11/16/2022 POWER OF A TTORNEY Power of Box Office Agent 06/15/2018 POWER OF A TTORNEY POWER OF [...] Ag ent (per Health Care Power of Box Office Agent document) [email or web address] Care Teams Appian Developer Relationship Specialty Start Date End Date Jenna Acosta MD [address] [facility] [place] [id number] PCP - General Family Medicine 07/23/24 documented as of this encounter
--- OUTSIDE RECORDS SUMMARY | 2024-09-29 12:06 | External Medical Summary | Summary of Care ---
Author Name Unknown Organization [facility] Address [address] [facility] [place] [address] Phone [phone] Care Team Providers Care Powder Monkey Name Role Phone Jenna Acosta MD Primary Care Provid er Reason for Visit * Reason Onset Date Comments Referral Requested by Specialist 07/23/2024 Encounter Details Date Type Department Care Team (Late st Contact Info) Description 07/23/2024 Telephone Cardiology, [facility] [address] [place] [address] Viola Stewart CRNP [address] [place] [address] Referral Requested by Specialist Allergies Active Allergy Reactions Criticality Noted Date Comments Methylprednisolone High 12/03/2021 Other Reaction(s): USED WHEN HAD POSION RAZ AND BROKE OUT IN HIVES documented as of this encounter (statuses as of 07/24/2024) Medications latanoprost (XALATAN) 0.005 % ophthalmic solution [...] 4 Active Carvedilol 3.125 MG Oral Tablet (Coreg) 5 07/24/19 25 Discontinu ed(Refill) levETIRAcetam 500 MG Oral Tablet (Keppra) 5 07/24/19 25 Discontinu ed(Refill) documented as of this encounter (statuses as of 07/24/2024) Active Problems Problem Noted Date Diagnosed Date [...] as of this encounter (statuses as of 07/24/2024) Resolved Problems Problem Noted Date Diagnosed Date Resolved Date Persistent hypoactive deliri 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/2021): Post TNK administration documented as of this encounter (statuses as of 07/24/2024) Immunizations Name Administration Dates Next Due COVID-19 [...] encounter Miscellaneous Notes * Telephone Encounter - Jung Sharma OSA - 07/24/2024 8:11 AM EST Patient has the appt scheduled on: 07/31/2024 Status: Carmelo Time: 1:00 PM Length: 40 Visit Type: NEW NEUROLOGY [[id number]] Reg Status: Verified Copay: $20.00 Provider: Bogdan Virk DO Department: NEUROLOGY [facility] 2ND FLOOR Additional Resources Requested: Appt Phone: * Telephone Encounter - Viola Stewart CRNP - 07/24/2024 5:50 AM EST This is perfect! Thank you!! * Telephone Encounter - Radha James OSA - 07/23/2024 3:57 PM EST Spoke to daughter and gave her the appt info * Telephone Encounter - Terra Aiken LPN - 07/23/2024 3:41 PM EST Manager Document please arrange return apt Thank you * Telephone Encounter - Jung Sharma OSA - 07/23/2024 3:36 PM EST Patient was seen today by cardiology, provider placed a 3 day urgent referral. I checked the patients chart, and it appears she was seen a s a video visit, so I am not sure if this would be a return visit to SP or new to SP. I was not able to schedule a return visit with Kita or Roman until September. Please let me know if I would need to do anything, provider did place a referral as well. Thankyou. Per providers notes: Urgent neurology referral placed, but patient is really already an established patient. She needs an In person appointment with Neurology [facility] documented in this encounter Plan of Treatment Upcoming Encounters Date Type Department Care Team (Late st Contact Info) Description 07/27/2024 10:00 AM EDT Office Visit [facility] Ana Barney [address] [place] [phone] Panfilo Soria PA-C [address] [place] [address] 07/31/2024 1:00 PM EDT Office Visit Neurology [facility] [place] [address] [place] [address] Bogdan Virk, [address] [place] [address] 09/18/2024 1:20 PM EDT [facility] [place] [facility] [address] [facility] [place] [phone] Jenna Acosta MD [address] [facility] [place] [address] 10/23/2024 10:30 AM EDT Office Visit Cardiology, 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
--- OUTSIDE RECORDS SUMMARY | 2024-09-29 12:06 | External Medical Summary | Summary of Care ---
Author Name Unknown Organization [facility] Address [address] [facility] [facility] [place] [address] Phone [phone] Care Team Providers Care Armhole Presser Name Role Phone Jenna Acosta MD Primary Care Provid er Reason for Visit * Reason Onset Date Comments Hospital Follow-Up Patient is he re for a hospital follow up from [facility]. Patient daughter states patient is feeling about the same since being in the hospital. Hospital Follow-Up 07/27/2024 Encounter Details Date Type Department Care Team (Late st Contact Info) Description 07/27/2024 10:00 AM EDT [facility] [place] [address] [place] [phone] Panfilo Soira PA-C [address] [place] [phone] Hospital discharge follow-up*; New onset seizure (HCC); Chronic ischemic left MCA stroke; Atrial fibrillation, unspecified type (HCC); Essential hypertension with goal blood pressure less than 130/80; Aphasia following cerebral infarction; Urinary incontinence, unspecified type Allergies Active Allergy Reactions Criticality Noted Date Comments Methylprednisolone High 12/03/2021 Other Reaction(s): USED WHEN HAD POSION RAZ AND BROKE OUT IN HIVES documented as of this encounter (statuses as of 07/28/2024) Medications latanoprost (XALATAN) 0.005 % ophthalmic solution Instill 1 Drop into both eyes at bedtime. 12/23/19 19 Active Magnesium Oxide 400 MG Oral Capsule Take by mouth 1 Capsule in the morning. 90 Capsule 3 02/24/20 22 Active Vitamin D3 25 MCG (1000 UT) Oral Capsule Take by mouth 1 Capsule in the morning. 90 Capsule 3 02/24/20 22 Active Apixaban 5 MG Oral Tablet (Eliquis)Indicat ions:Paroxysmal atrial fibrillation (HCC),PVC (premature ventricular contraction) Take 1 Tablet by mouth in the morning and 1 Tablet before bedtime. 180 Tablet 3 01/27/20 24 Active Atorvastatin Calcium 40 MG Oral Tablet (Lipitor)Indicat ions:Dyslipidemi a, goal LDL below 70 Take 1 Tablet by mouth every afternoon. 90 Tablet 3 01/27/20 24 Active Escitalopram Oxalate 10 MG Oral Tablet (Lexapro)Indicat ions:Anhedonia,A nxiety Take 1 Tablet by mouth in the morning. 90 Tablet 3 03/17/20 24 Active Carvedilol 3.125 MG Oral Tablet (Coreg)Krystleo ns:Paroxysmal atrial fibrillation (HCC),HTN, goal below 130/80 Take 1 Tablet by mouth 2 times a day with morning and evening meals. 180 Tablet 3 07/24/19 25 Active levETIRAcetam 500 MG Oral Tablet (Keppra)Krystle ons:Hospital discharge follow-upKatiana symptomatic epilepsy with complex partial seizures, not intractable, without status epilepticus (HCC) Take 1.5 Tablets by mouth in the morning and 1.5 Tablets before bedtime. 270 Tablet 07/24/19 25 Active Losartan Potassium 50 MG Oral Tablet (Cozaar)Ildati ons:Essential hypertension with goal blood pressure less than 130/80 Take 1 Tablet by mouth in the morning. 07/28/19 25 Active Losartan Potassium 25 MG Oral Tablet (Cozaar)Indicati ons:Essential hypertension with goal blood pressure less than 130/80 Take 1 Tablet by mouth in the morning. 90 Tablet 2 11/24/19 24 025 Discontinued documented as of this encounter (statuses as of 07/28/2024) Active Problems Problem Noted Date Diagnosed Date [...] as of this encounter (statuses as of 07/28/2024) Resolved Problems Problem Noted Date Diagnosed Date Resolved Date Persistent hypoactive deliri 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/2021): Post TNK administration documented as of this encounter (statuses as of 07/28/2024) Immunizations Name Administration Dates Next Due COVID-19 [...] Sign Reading Time Taken Comments Blood Pressure 123/75 07/27/2024 10:55 AM EDT Pulse 50 07/27/2024 10:13 AM EDT Temperature 35.7 °C (96.2 °F) 07/27/2024 10:13 AM E DT Respiratory Rate 18 07/27/2024 10:13 AM EDT Oxygen Saturation 98% 07/27/2024 10:13 AM EDT Inhaled Oxygen Concentration - - Weight 92.3 kg (203 lb 6.4 oz) 07/27/2024 10:13 AM EDT Height - - Body Mass Index 32.83 03/17/2024 12:58 PM EDT documented in this encounter Progress Notes * Panfilo Soria PA-C - 07/27/2024 10:34 AM EDT SUBJECTIVE: Yanci Torres is a 84 year old female. Chief Complaint Patient presents with Hospital Follow-Up Patient is here for a hospital follow up from [facility]. Patient daughter states patient is feeling about the same since being in the hospital. Recent Admission: Patient was recently admitted to [facility] 07/17/24 due to seizure and then unresponsiveness. The date of discharge was 07/21/24. Discharge report received and reviewed. "Hospital Course This is a 84-year-old lady with PMH of CVA, depression, HTN presented for new onset seizure. 3 years ago she had ischemic stroke complicated by hemorrhagic conversion afterwards with residual aphasia. the patient had a 30-second to 1 minute off generalized tonic-clonic seizure-like activity with rolling of the eyes and foaming of the mouth. Patient was confused for 30 minutes afterwards. This is her first time having like this. The daughter denies any recent alcohol or new medication consumption, insomnia. In the ED patient received Keppra loading dose. CT head showing acute on subacute pontine infarct. CTA head and neck negative for carotid artery stenosis. MRI of the brain negative for acute infarct or hemorrhage. Neurology on board. EEG show abnormal electrical activity from the left hemisphere likely from prior stroke. Neurology recommending continuing Keppra 750 mg twice daily. During hospitalization patient was also found to have slow heart rate 30-40. EKG was performed and showing A-fib with slow response. Cardiology was consulted. Cardiology recommended to switch metoprolol to Coreg. Patient will be discharged with radiation monitor for 2 weeks. Patient was also found to have high blood pressure and losartan was increased to 50 mg. Patient is medically stable to be discharged. She has to follow-up with cardiology, neurology and PCP within 1 to 2 weeks. Spoke to the daughter about high BP, if the patient BP was high after taking losartan 50 mg the daughter can give her 25 mg more. Recommending BP diary so PCP can adjust better about BP meds." BP within goal, taking losartan 50mg/day. No recent home BP monitoring, encouraged if able. No further seizure like activity since discharge. Has Neurology appointment 07/31/24. Saw Cardiology. Zio in place. Eating/drinking normally. Seems a little more sleepy. Aphasia post CVA limits her communication to some degree, unchanged acutely. Chronically "seems content to sit there and pee herself" per daughter, this has been ongoing since prior CVA. Urine not dark or foul smelling, UTI has been r/o in the past per daughter. Patient does not complain of dysuria. Wears adult diapers. Ambulates without difficulty. No apparent LE weakness. History: Patient Active Problem List Diagnosis HTN, goal below 130/80 Ventricular ectopy Ischemic stroke without coma (HCC) Subdural hemorrhage (HCC) Subarachnoid hemorrhage (HCC) Prediabetes Impaired mobility and ADLs Paroxysmal atrial fibrillation (HCC) Dysphagia following cerebral infarction Aphasia following cerebral infarction Encephalopathy Right sided weakness Hyperuricemia Protein-calorie malnutrition (HCC) Current Outpatient Medications Medication Sig Dispense Refill latanoprost (XALATAN) 0.005 % ophthalmic solution Instill 1 Drop into both eyes at bedtime. Magnesium Oxide 400 MG Oral Capsule Take by mouth 1 Capsule in the morning. 90 Capsule 3 Vitamin D3 25 MCG (1000 UT) Oral Capsule Take by mouth 1 Capsule in the morning. 90 Capsule 3 Apixaban 5 MG Oral Tablet (Eliquis) Take 1 Tablet by mouth in the morning and 1 Tablet before bedtime. 180 Tablet 3 Atorvastatin Calcium 40 MG Oral Tablet (Lipitor) Take 1 Tablet by mouth every afternoon. 90 Tablet 3 Escitalopram Oxalate 10 MG Oral Tablet (Lexapro) Take 1 Tablet by mouth in the morning. 90 Tablet 3 Carvedilol 3.125 MG Oral Tablet (Coreg) Take 1 Tablet by mouth 2 times a day with morning and evening meals. 180 Tablet 3 levETIRAcetam 500 MG Oral Tablet (Keppra) Take 1.5 Tablets by mouth in the morning and 1.5 Tablets before bedtime. 270 Tablet 0 Losartan Potassium 50 MG Oral Tablet (Cozaar) Take 1 Tablet by mouth in the morning. No current facility-administered medications for this visit. Current and discharge medications have been reconciled. Review of patient's allergies indicates: Allergen Reactions Methylprednisolone Other Reaction(s): USED WHEN HAD POSION RAZ AND BROKE OUT IN HIVES OBJECTIVE: BP 123/75 (BP Site: Left Arm, BP Position: Sitting, BP Cuff Size: Large) | Pulse 50 | Temp 96.2 °F(35.7 °C) (Temporal Artery) | Resp 18 | Wt 203 lb 6.4 oz (92.3 kg) | SpO2 98% | BMI 32.83 kg/m² |BSA 2.07 m² PHYSICAL EXAM: General: alert, no distress, well nourished, and well developed Head: Normocephalic, No masses, lesions, tenderness or abnormalities Oropharynx: no exudate, no erythema, lips, buccal mucosa, and tongue normal, and mucous membranes are moist Heart: regular rate & rhythm Lungs: lungs clear to auscultation Abdomen: abdomen soft, non-tender, and normal bowel sounds Neuro: responds yes/no to questions appropriately, limited verbalization otherwise. Flat affect. Extremities: no edema ASSESSMENT/PLAN: Hospital discharge follow-up (Primary) - DISCH MED RECON CUR MED LIS New onset seizure (HCC) Continue Keppra, per Neurology. Chronic ischemic left MCA stroke Noted. Atrial fibrillation, unspecified type (HCC) Per Cardiology. Awaiting Zio results. Essential hypertension with goal blood pressure less than 130/80 Within goal at this time, continue losartan 50mg/day. Aphasia following cerebral infarction Noted. Urinary incontinence, unspecified type Noted, chronic. Wears adult diapers. Daughter to track behavior patterns now that she is with patient during the day, encourage regular restroom breaks. Hold off on medication trials d/t recent medical events and medication change(s) - patient/daughter agreeable. Follow up: With Neurology as scheduled. Check-out note: 09/18/2024 as scheduled. I spent a total of 30-39 minutes (exact time 35 mins) minutes on the date of service in preparation, delivery, and documentation of the care provided to Yanci Torres excluding any time spent in performance of separately billed services. Panfilo Soria PA-C [facility] [address] [facility] [place] [phone] documented in this encounter Nursing Notes * Leela Armendariz LPN - 07/27/2024 10:16 AM EDT The patient has been properly identified by confirmation of name and date of . Chief Complaint Patient presents with Hospital Follow-Up Patient is here for a hospital follow up from [facility]. Patient daughter states patient is feeling about the same since being in the hospital. documented in this encounter Plan of Treatment Upcoming Encounters Date Type Department Care Team (Late st Contact Info) Description 07/31/2024 1:00 PM EDT Office Visit Neurology [facility] [address] [facility] [place] [address] Bogdan Virk, [address] [facility] [place] [address] 09/18/2024 1:20 PM EDT [facility] [address] [place] [phone] Jenna Acosta MD [address] [facility] [place] [address] 10/23/2024 10:30 AM EDT Office Visit Cardiology, [facility] [address] [place] [address] Viola Stewart CRNP [address] [facility] [place] [address] Health Maintenance Due Date Last Done Comments [...] as of this encounter Visit Diagnoses Diagnosis Hospital discharge follow-up- Primary Other follow-up examination New onset seizure (HCC) Other convulsions Chronic ischemic left MCA stroke Transient ischemic attack (TIA), and cerebral infarction without residual deficits Atrial fibrillation, unspecified type (HCC) Essential hypertension with goal blood pressure less than 130/80 Aphasia following cerebral infarction Aphasia, late effect of cerebrovascular disease Urinary incontinence, unspecified type documented in this encounter Advance Directives Documents on File Type Date Recorded 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
--- OUTSIDE RECORDS SUMMARY | 2024-09-29 12:06 | External Medical Summary | Summary of Care ---
Author Name Unknown Organization [facility] Address [address] [facility] [place] [address] Phone [phone] Care Team Providers Care Leather Drier Name Role Phone Jenna Acosta MD Primary Care Provid er Reason for Visit * Reason Onset Date Comments Medication Refill 08/06/2024 Encounter Details Date Type Department Care Team (Late st Contact Info) Description 08/06/2024 Refill [facility] [address] [facility] [place] [phone] Jenna Acosta MD [address] [facility] [place] [address] Essential hypertension with goal blood pressure less than 130/80 Allergies Active Allergy Reactions Criticality Noted Date Comments Methylprednisolone High 12/03/2021 Other Reaction(s): USED WHEN HAD POSION RAZ AND BROKE OUT IN HIVES documented as of this encounter (statuses as of 08/07/2024) Medications latanoprost (XALATAN) 0.005 % ophthalmic solution [...] the morning. 90 Tablet 1 5 Active Losartan Potassium 50 MG Oral Tablet (Cozaar)Indicatio ns:Essential hypertension with goal blood pressure less than 130/80 Take 1 Tablet by mouth in the morning. 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/2021): Post TNK administration documented as of this encounter (statuses as of 08/07/2024) Immunizations Name Administration Dates Next Due COVID-19 [...] encounter Miscellaneous Notes * Telephone Encounter - Mavis Hernandez PA-C - 08/07/2024 11:47 AM EDTSigned Prescriptions: Disp Refills Losartan Potassium 50 MG Oral Tablet (Coza*90 Tab*1 Sig: Take 1 Tablet by mouth in the morning.Authorizing Provider: MAVIS HERNANDEZ * Telephone Encounter - Mavis Hernandez PA-C - 08/07/2024 11:47 AM EDT Inboxologist Note: Refill sent Essential hypertension with goal blood pressure less than 130/80 - Losartan Potassium 50 MG Oral Tablet (Cozaar); Take 1 Tablet by mouth in the morning. Results for orders placed or performed in visit on 03/17/24 LIPID PANEL WITH DIRECT LDL IF TG IS HIGH Result Value Ref Range Triglycerides 105 <=174 mg/dL Cholesterol 152 <200 mg/dL HDL Cholesterol 60 >49 mg/dL Non-HDL Cholesterol 92 <=159 mg/dL LDL Cholesterol 71 <=129 mg/dL COMPREHENSIVE METABOLIC PANEL Result Value Ref Range BUN 14 6 - 20 mg/dL CREATININE 1.0 0.5 - 1.0 mg/dL EGFR 59 (L) >=60 mL/min SODIUM 142 135 - 146 mmol/L POTASSIUM 4.4 3.5 - 5.1 mmol/L CHLORIDE 101 98 - 107 mmol/L CO2 30 22 - 32 mmol/L ANION GAP 11 7 - 15 mmol/L GLUCOSE 107 70 - 120 mg/dL Albumin 4.1 3.8 - 5.0 g/dL AST 35 10 - 35 U/L Alkaline Phosphatase 125 35 - 130 U/L Bilirubin, Total 0.8 <=1.2 mg/dL CALCIUM 9.6 8.4 - 10.2 mg/dL Protein 6.7 6.0 - 8.3 g/dL ALT 40 (H) 10 - 35 U/L HEMOGLOBIN A1C Result Value Ref Range Hemoglobin A1C 5.9 (H) 4.0 - 5.6 % Estimated Average Glucose 123 <126 mg/dL TSH WITH FREE T4 IF INDICATED Result Value Ref Range TSH 1.47 0.27 - 4.20 uIU/mL ANEMIA CBC Result Value Ref Range WBC 10.70 4.00 - 10.80 K/uL RBC 4.41 3.85 - 5.15 M/uL HGB 14.1 12.0 - 15.3 g/dL HCT 43.2 36.0 - 45.2 % MCV 98.0 81.5 - 97.5 fL MCH 32.0 27.0 - 34.0 pg MCHC 32.6 32.0 - 36.0 g/dL RDW 12.4 11.5 - 15.5 % PLT 240 140 - 400 K/uL MPV 12.8 6.6 - 11.1 fL nRBCs 0 <=0 /100 WBCs DIFFERENTIAL, AUTOMATED Result Value Ref Range WBC 10.70 4.00 - 10.80 K/uL Neutrophils % 47.7 40.0 - 75.0 % Lymphocytes % 40.2 18.0 - 42.0 % Monocytes % 7.9 1.0 - 11.0 % Eosinophils % 3.4 0.0 - 6.0 % Basophils % 0.6 0.0 - 2.0 % Immature Granulocytes % 0.2 0.0 - 2.0 % Absolute Neutrophils 5.11 1.80 - 7.70 K/uL Absolute Lymphocytes 4.30 1.00 - 4.80 K/ul Absolute Monocytes 0.85 0.00 - 1.10 K/uL Absolute Eosinophils 0.36 0.00 - 0.70 K/uL Absolute Basophils 0.06 0.00 - 0.20 K/uL Absolute Immature Granulocytes 0.02 0.00 - 0.20 K/uL Mavis Hernandez PA-C 08/07/2024 11:47 AM * Telephone Encounter - Kaylene Reynoso [facility] - 08/06/2024 6:54 PM EDTPending Prescriptions: Disp Refills Losartan Potassium 50 MG Oral Tablet (Coza* Sig: Take 1 Tablet by mouth in the morning. * Telephone Encounter - Kaylene Reynoso RPh - 08/06/2024 6:54 PM EDT Pharmacists cannot authorize refills for meds listed as "historical" in chart. Please approve if appropriate. Kaylene Reynoso RPh Clinical Pharmacist Medication Therapy Disease Management 08/06/2024 6:54 PM * Telephone Encounter - Nova Rao CPhT - 08/06/2024 10:45 AM EDT Medication(s) is/are listed as "Historical". Pt confirmed the current dosage, directions, and qty that they are normally prescribed, as reflected in the pending order below. This is also indicated from encounter on 07/27/2024. Confirmed patient has been seen within the last year.. Please review and approve if appropriate. Pending Prescriptions: Disp Refills Losartan Potassium 50 MG Oral Tablet (Coz* Sig: Take 1 Tablet by mouth in the morning. Last Visit: 07/27/2024 (in office), Visit date not found (telemedicine) Next Visit: 09/18/2024 If no future appointments scheduled, and last appointment is greater than a year ago, please schedule patient for a follow-up appointment Last date the medication was ordered: Historical Patient Phone Numbers Labs: Lab Results Component Value Date/Time CREAT 1.0 03/17/2024 02:02 PM CREAT 1.1 (H) 12/07/2019 10:05 AM POTASSIUM 4.4 03/17/2024 02:02 PM POTASSIUM 4.7 12/07/2019 10:05 AM TSH 1.47 03/17/2024 02:02 PM LDL 71 03/17/2024 02:02 PM LDL 81 07/06/2016 12:00 AM ALT 40 (H) 03/17/2024 02:02 PM ALT 30 07/06/2016 12:00 AM HGBA1C 5.9 (H) 03/17/2024 02:02 PM HGBA1C 5.8 (A) 07/06/2016 12:00 AM documented in this encounter Plan of Treatment Upcoming Encounters Date Type Department Care Team (Late st Contact Info) Description 08/14/2024 11:45 AM EDT NeuroDiagnostic Study Neurophysiology, [address] [place] [address] [facility], Neurophys Tech [address] [place] [address] [place] [address] 08/17/2024 8:15 AM EDT NeuroDiagnostic Study Neurophysiology, [address] [place] [address] [facility], Neurophys Tech [address] [place] [address] [place] [address] 09/18/2024 1:20 PM EDT [facility] [address] [facility] [place] [phone] Jenna Acosta MD [address] [facility] [place] [address] 10/23/2024 10:30 AM EDT Office Visit Cardiology, [facility] [address] [place] [phone] Viola Stewart CRNP [address] [place] [address] Health Maintenance Due Date Last Done Comments [...] as of this encounter Visit Diagnoses Diagnosis Essential hypertension with goal blood pressure less than 130/80 documented in this encounter Advance Directives Documents on File Type Date Recorded Patient Converter Supervisor Expl anation Advance Directives and Living Will 11/16/2022 Janey Vogel ADVANCE DIRECTIVE / LIVING WILL Power of City Attorney 11/16/2022 POWER OF A TTORNEY Power of City Attorney 06/15/2018 POWER OF A TTORNEY POWER OF [...] Ag ent (per Health Care Power of City Attorney document) [email or web address] Care Teams Leather Drier Relationship Specialty Start Date End Date Jenna Acosta MD [address] [place] [address] PCP - General Family Medicine 07/23/24 documented as of this encounter
--- OUTSIDE RECORDS SUMMARY | 2024-09-29 12:06 | External Medical Summary | Summary of Care ---
Author Name Unknown Organization [facility] Address [address] [facility] [place] [address] Phone [phone] Care Team Providers Care Autism Teacher Name Role Phone Jenna Acosta MD Primary Care Provid er Reason for Visit * Reason Onset Date Comments Referral Requested by Specialist 07/23/2024 Encounter Details Date Type Department Care Team (Late st Contact Info) Description 07/23/2024 Telephone Cardiology, [facility] [address] [place] [address] Viola Stewart CRNP [address] [place] [address] Referral Requested by Specialist Allergies Active Allergy Reactions Criticality Noted Date Comments Methylprednisolone High 12/03/2021 Other Reaction(s): USED WHEN HAD POSION RAZ AND BROKE OUT IN HIVES documented as of this encounter (statuses as of 07/23/2024) Medications latanoprost (XALATAN) 0.005 % ophthalmic solution [...] as of this encounter (statuses as of 07/23/2024) Active Problems Problem Noted Date Diagnosed Date [...] as of this encounter (statuses as of 07/23/2024) Resolved Problems Problem Noted Date Diagnosed Date Resolved Date Persistent hypoactive deliri 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/2021): Post TNK administration documented as of this encounter (statuses as of 07/23/2024) Immunizations Name Administration Dates Next Due COVID-19 [...] encounter Miscellaneous Notes * Telephone Encounter - Radha James OSA - 07/23/2024 3:57 PM EST Spoke to daughter and gave her the appt info * Telephone Encounter - Terra Aiken LPN - 07/23/2024 3:41 PM EST Mill Tender Second Operator please arrange return apt Thank you * [...] needs an In person appointment with Neurology [facility] documented in this encounter Plan of Treatment Upcoming Encounters Date Type Department Care Team (Late st Contact Info) Description 07/27/2024 10:00 AM EDT [facility] [address] [place] [phone] Panfilo Soria PA-C [address] [place] [address] 07/31/2024 1:00 PM EDT Office Visit [facility] [address] Bogdan Virk, [address] [facility] [address] 09/18/2024 1:20 PM EDT 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
--- OUTSIDE RECORDS SUMMARY | 2024-09-29 12:06 | External Medical Summary | Summary of Care ---
Author Name Unknown Organization [facility] Address [address] [place] [address] Phone [phone] Care Team Providers Care Printer'S Assistant Name Role Phone Jenna Acosta MD Primary Care Provid er Reason for Referral * Evaluate & Treat - Unlimited Visits (Within 3 days (urgent)) - Authorized Specialty Diagnoses / Procedures Referred By Valentino sprague Referred To Contact Neurology Diagnoses Hospital discharge follow-up Viola Stewart CRNP [address] [place] [address] Phone: tel: fax: Referral ID Status Reason Start Date Expiration Date Visits Requested Visits Authorized [id number] Authorized Specialty Services Required 07/23/2024 999 999 Question Answer Referral Priority Within 3 days (urgent) Where should this appointment be scheduled? [facility] This patient already has care established with Neurology. Do not place this order. Please use Ask A Doc to expedite care. Acknowledge Is this referral being placed for insurance purposes ONLY No, patient needs appointment [facility] NE[facility]OLOGY REFERRAL QUESTIONS Seizure If this is for an initial diagnosis of a new seizure disorder, please place an order for an updated EEG Routine [[id number]] Acknowledge Reason for Visit * Reason Comments Follow Up Encounter Details Date Type Department Care Team (Late st Contact Info) Description 07/23/2024 3:00 PM EST Office Visit Cardiology, [facility] [address] [facility] [place] [address] Viola Stewart CRNP [address] [place] [address] Hospital discharge follow-up*; Partial symptomatic epilepsy with complex partial seizures, not intractable, without status epilepticus (HCC); Paroxysmal atrial fibrillation (HCC); PVC (premature ventricular contraction); Essential hypertension with goal blood pressure less than 130/80; Dyslipidemia, goal LDL below 70 Allergies Active Allergy Reactions Criticality Noted Date [...] 24 Active Carvedilol 3.125 MG Oral Tablet (Coreg)Indicatio ns:Paroxysmal atrial fibrillation (HCC),Essential hypertension with goal blood pressure less than 130/80 Take 1 Tablet by mouth 2 times a day with morning and evening meals. 180 Tablet 3 07/24/19 25 Active levETIRAcetam 500 MG Oral Tablet (Keppra)Indicati ons:Hospital discharge follow-up,Katiana willoughby symptomatic epilepsy with complex partial seizures, not intractable, without status epilepticus (HCC) Take 1.5 Tablets by mouth in the morning and 1.5 Tablets before bedtime. 270 Tablet 07/24/19 25 Active Cefuroxime Axetil 250 MG Oral Tablet (Ceftin)Indicati ons:Urinary frequency Take 1 Tablet by mouth in the morning and 1 Tablet before bedtime. 14 Tablet 07/16/19 24 025 Discontinued Losartan Potassium 25 MG Oral Tablet (Cozaar)Indicati ons:Essential hypertension with goal blood pressure less than 130/80 Take 1 Tablet by mouth in the morning. 90 Tablet 2 11/24/19 24 025 Discontinued Metoprolol Succinate ER 50 MG Oral Tablet Extended Release 24 Hour (toPROL XL)Indications:P aroxysmal atrial fibrillation (HCC),PVC (premature ventricular contraction),Ess ential hypertension with goal blood pressure less than 130/80 Take 1.5 Tablets by mouth in the morning. 135 Tablet 3 06/19/19 25 025 Discontinued Carvedilol 3.125 MG Oral Tablet (Coreg) 07/22/19 25 025 Discontinued(Re fill) levETIRAcetam 500 MG Oral Tablet (Keppra) 07/22/19 25 025 Discontinued(Re fill) documented as of this encounter (statuses as [...] Sign Reading Time Taken Comments Blood Pressure 124/72 07/23/2024 2:59 PM EST Pulse 68 07/23/2024 2:59 PM EST Temperature - - Respiratory Rate - - Oxygen Saturation - - Inhaled Oxygen Concentration - - Weight 91.2 kg (201 lb) 07/23/2024 2:59 PM EST Height - - Body Mass Index 32.44 03/17/2024 12:58 PM EDT documented in this encounter Progress Notes * Viola Stewart CRNP - 07/23/2024 3:00 PM EST 07/23/2024 Cardiology Follow Up Primary Senior Professional Services Consultant: Enoc Matta PA-C Cardiac Problems: Chronic ventricular ectopy with preserved LV systolic function HTN Dyslipdemia Left MCA territory 11/2021, Received TNK in ED, subsequent Subdural hematoma/left parietooccipital hematoma, TNK reversed and transferred to [facility]. Paroxysmal Atrial fibrillation [id number] score of 7 HPI: Yanci Torres is a 84 year old female presents for hospital discharge follow up. Patient was last seen in our office by the undersigned 03/2023 with concerns of palpitations and intermittent dizziness although difficult to attain her symptoms due to progressive dementia. Patient was placed on protracted cardiac monitoring an EKG was obtained during office visit which showed no acute changes on labs were ordered to further evaluate. ZIO monitor as noted below with 100% Afib burden and ventricular ectopy including bigeminy, trigeminy and two 4 beat runs of VT. Patient was since admitted to [facility] in late July 09, 2024 due to a witnessed seizure. Per review of hospitalist note the patient had experienced a 30 seconds to 1 minute off generalized tonic-clonic seizure-like activity with rolling of the eyes and foaming of the mouth and was confused for approximately 30 minutes after the episode per family patient has never experienced anything like this before. She was loaded on Keppra in the emergency department and a CT of the head showed an acute on subacute pontine infarct CTA of the head and neck were negative for carotid artery stenosis an MRI of the brain was obtained which was negative for an acute infarct or hemorrhage. EEG did demonstrate abnormal electrical activity from the left hemisphere likely from post or prior stroke EKG did demonstrate AFib with slow response Cardiology had been consulted during course of hospitalization which recommended patient be switched from metoprolol to Coreg and be discharged with cardiac monitoring for total 2 weeks. She still has this monitor on. Daughters have presented with her today. Patient offers no acute complaints. Daughters note that she is very quiet, flat affect, and stares off into space. No hospital discharge for neurology has been arranged. She was seen by them over a year ago due to her history of stroke, but nothing since. Concerned keppra is a contributing factor. Patient was discharged with no neurology follow up as stated above and will be running out of her keppra. BP controlled. Compliant on current medications. REVIEW OF SYSTEMS: See HPI for pertinent positives. All others negative other than those noted in the HPI. CONSTITUTIONAL: No change in weight, No weakness, No fatigue and No fevers, No sweats or chills. PULMONARY: No cough, sputum, or hemoptysis, No wheezing, No shortness or breath and No recent change in breathing. CARDIOVASCULAR: No chest pain, No dyspnea on exertion, No edema, No palpitations and No syncope. GASTROINTESTINAL: No abdominal pain, No change in bowel habits, No significant heartburn, No nausea, No vomiting, No diarrhea, No constipation, No blood in stools or black tarry stools. No dysphagia. HEMATOLOGIC: No abnormal bleeding and No bruising. NEUROLOGICAL: Normal balance, No headaches and No weakness. Review of patient's allergies indicates: Allergen Reactions Methylprednisolone Other Reaction(s): USED WHEN HAD POSION RAZ AND BROKE OUT IN HIVES Current Outpatient Medications Medication Sig Dispense Refill [...] No current facility-administered medications for this visit. Past Medical History: Diagnosis Date Hypertension goal BP (blood pressure) < 130/80 No family history on file. Social History Socioeconomic History Marital status: Tobacco Use Smoking status: Never Smokeless tobacco: Never Vaping Use Vaping status: Never Used Substance and Sexual Activity Alcohol use: Not Currently Drug use: Never OBJECTIVE/PHYSICAL EXAMINATION: BP 124/72 | Pulse 68 | Wt 91.2 kg (201 lb) | BMI 32.44 kg/m² | BSA 2.06 m² General: No acute distress. A+Ox3. HEENT: Normocephalic. Atraumatic. PERRL. EOMI. Conjunctiva and sclera clear. NECK: No carotid bruits. No JVD. Carotid upstrokes are brisk. Heart: Irregularly irregular . S1 and S2 noted. No murmur. No rubs or gallops. PMI non displaced. Lungs: Clear to auscultation. No wheezes.No rhonchi. No rales. Abdomen: Normal bowel sounds. Soft. Nontender. No masses or organomegaly. No abdominal bruits. Extremities: No edema. No clubbing or cyanosis. Pulses: radial=2/4, posterior tibial=2/4, dorsalis pedis = 2/4. NEURO: No focal deficits. PSYCH: Appropriate affect and insight. DATA Labs & Imaging Reviewed Below: ZIO monitor currently in place, will await results. 04/10/24 ZIO CONCLUSIONS: Duration: 6 days, 23 hours 2 Ventricular Tachycardia runs occurred, the run with the fastest interval lasting 4 beats with a max rate of 176 bpm, the longest lasting 4 beats with an avg rate of 132 bpm. Atrial Fibrillation occurred continuously (100% burden), ranging from 44-137 bpm (avg of 70 bpm). Isolated VEs were occasional (1.2%, 8045), VE Couplets were rare (<1.0%, 132), and VE Triplets were rare (<1.0%, 3). Ventricular Bigeminy and Trigeminy were present. No symptoms reported. ASSESSMENT/PLAN: 84 year old year old female 1. Hospital discharge follow-up 2. Partial symptomatic epilepsy with complex partial seizures, not intractable, without status epilepticus (HCC) -Patient is stable from a cardiac perspective today with no acute complaints. -Daughters do express concern over a change in her affect. Possibly s/t to her seizure in combination with known dementia; however, medications may be largely affecting this -Hospital did not assist to arrange an OP neurology follow up, will ask our PARS to assist today asshe needs seen for close follow up due to seizures. She has seen them in the past due to a prior CVA -Will provide patient with 90 day fill of her Keppra, but further refills and management will need to be at the discretion of neurology - ADULT NEUROLOGY REFERRAL OP - levETIRAcetam 500 MG Oral Tablet (Keppra); Take 1.5 Tablets by mouth in the morning and 1.5 Tablets before bedtime. Dispense: 270 Tablet; Refill: 0 3. Paroxysmal atrial fibrillation (HCC) -Continue coreg for rate control. Recent device interrogation suggest Shadia-fib is more persistent now. -Continue Eliquis for oral AC therapy. No bleeding concerns. - Carvedilol 3.125 MG Oral Tablet (Coreg); Take 1 Tablet by mouth 2 times a day with morning and evening meals. Dispense: 180 Tablet; Refill: 3 4. PVC (premature ventricular contraction) -Continue Coreg 5. Essential hypertension with goal blood pressure less than 130/80 -Controlled -Continue Coreg - Carvedilol 3.125 MG Oral Tablet (Coreg); Take 1 Tablet by mouth 2 times a day with morning and evening meals. Dispense: 180 Tablet; Refill: 3 6. Dyslipidemia, goal LDL below 70 -Recommend yearly lipid panel -Continue Atorvastatin DISPOSITION: Follow up 3 months or if symptoms worsen/fail to improve. All questions were answered to the patients satisfaction. Patient advised to report to ED with any and all emergencies. The patient agrees to the above plan and will call with additional questions or concerns. HAR[facility], [address] [address] I spent a total of 40 minutes on the date of service in preparation, delivery, and documentation ofthe care provided to Yanci Torres excluding any time spent in the performance of separately billed services. This chart was completed in part utilizing [employer] Speech Voice Recognition Software. Grammatical errors, random word insertions, pronoun errors, and incomplete sentences are an occasional consequence of this system due to software limitations, ambient noise, and hardware issues. Any formal questions or concerns about the content, text, or information contained within the body of this dictation should be directly addressed to the provider for clarification. documented in this encounter Nursing Notes * Vidya Espino CMA - 07/23/2024 2:56 PM EST Examination Room: 2 Name: Yanci Torres Date of : (1940) Reason for Visit: 1 year Interim Hospitalization(s): seizure recently, just got out of hospital Problems/Concerns: weak and tired, falls asleep easily. Chest Pain/SOB: denied My [facility] is a way you can talk to your provider online through e-mail. Would you like to sign up? I can activate it for you? ALREADY ACTIVE Patient was instructed to not get up on the exam table until directed and assisted by their provider; patient is to remain seated in the chair/ wheelchair/ exam table for fall prevention and safety reasons. Patient is aware to have assistance to step down off exam table with personnel. Patient voiced full comprehension of instructions. documented in this encounter Plan of Treatment Upcoming Encounters Date Type Department Care Team (Late st Contact Info) Description 07/31/2024 1:00 PM EDT Office Visit Neurology [facility] [address] [facility] [place] [address] Bogdan Virk, [address] [facility] [place] [address] 09/18/2024 1:20 PM EDT Office Visit [facility] [address] [place] [phone] Jenna Acosta MD [address] [place] [address] 10/23/2024 10:30 AM EDT Office Visit Cardiology, [facility] [address] [place] [address] Viola Stewart CRNP [address] [place] [address] Scheduled Referrals Name Type Priority Associated Diagnoses Orde r Schedule ADULT NEUROLOGY REFERRAL OP Referral Within 3 days (urgent) Hospital discharge follow-up Ordered: 07/23/2024 Health Maintenance Due Date Last Done Comments [...] Hospital discharge follow-up- Primary Other follow-up examination Partial symptomatic epilepsy with complex partial seizures, not intractable, without status epilepticus (HCC) Paroxysmal atrial fibrillation (HCC) Atrial fibrillation PVC (premature ventricular contraction) Other premature beats Essential hypertension with goal blood pressure less than 130/80 Dyslipidemia, goal LDL below 70 Other and unspecified hyperlipidemia documented in this encounter Advance Directives Documents on File Type Date Recorded Patient Software Analyst Expl anation Advance Directives and Living Will 11/16/2022 Janey Vogel ADVANCE DIRECTIVE / LIVING WILL Power of Electric Tool Repairer 11/16/2022 POWER OF A TTORNEY Power of Electric Tool Repairer 06/15/2018 POWER OF A TTORNEY POWER OF [...] Ag ent (per Health Care Power of Electric Tool Repairer document) [email or web address] Care Teams Printer'S Assistant Relationship Specialty Start Date End Date Jenna Acosta MD [address] [facility] [place] [address] PCP - General Family Medicine 07/23/24 documented as of this encounter"
--- OUTSIDE RECORDS SUMMARY | 2024-09-29 12:06 | External Medical Summary | Summary of Care ---
Author Name Unknown Organization [facility] Address [address] [facility] [place] [address] Phone [phone] Care Team Providers Care Security Control Assessor Name Role Phone Jenna Acosta MD Primary Care Provid er Reason for Visit * Reason Onset Date Comments Referral Requested by Specialist 07/23/2024 Encounter Details Date Type Department Care Team (Late st Contact Info) Description 07/23/2024 Telephone Cardiology, [facility] [address] [place] [address] Viola Stewart CRNP [address] [place] [address] Referral Requested by Specialist Allergies Active Allergy [...] encounter Miscellaneous Notes * Telephone Encounter - Viola Stewart CRNP - 07/24/2024 5:50 AM EST This is perfect! Thank you!! * Telephone Encounter - Radha James OSA - 07/23/2024 3:57 PM EST Spoke to daughter and gave her the appt info * Telephone Encounter - Terra Aiken LPN - 07/23/2024 3:41 PM EST Polisher Dial please arrange return apt Thank you * [...] needs an [facility] documented in this encounter Plan of Treatment Upcoming Encounters Date Type Department Care Team (Late st Contact Info) Description 07/27/2024 10:00 AM EDT [facility] [address] [place] [phone] Panfilo Soria PA-C [address] [place] [address] 07/31/2024 1:00 PM EDT Office [facility] [address] [facility] [place] [address] Bogdan Virk, [address] [facility] [place] [address] 09/18/2024 1:20 PM EDT [facility] [address] [place] [phone] Jenna Acosta MD [address] [place] [address] 10/23/2024 10:30 AM EDT Office Visit Cardiology, [facility] [address] [place] [address] Viola Stewart CRNP [address] [place] [address] Health Maintenance Due Date Last Done Comments [...] Documents on File Type Date Recorded Patient Dump Grounds Checker Expl anation Advance Directives and Living Will 11/16/2022 Janey Vogel ADVANCE DIRECTIVE / LIVING WILL Power of Attendance Clerk 11/16/2022 POWER OF A TTORNEY Power of Attendance Clerk 06/15/2018 POWER OF A TTORNEY POWER OF [...] Ag ent (per Health Care Power of Attendance Clerk document) [email or web address] Care Teams Security Control Assessor Relationship Specialty Start Date End Date Jenna Acosta MD [address] [facility] [place] [address] PCP - General Family Medicine 07/23/24 documented as of this encounter
--- OUTSIDE RECORDS SUMMARY | 2024-09-29 12:06 | External Medical Summary | Summary of Care ---
Author Name Unknown Organization [facility] Address [address] [facility] [place] [address] Phone [phone] Care Team Providers Care Loan Secretary Name Role Phone Jenna Acosta MD Primary Care Provid er Reason for Visit * Reason Onset Date Comments Medication Refill 06/19/2024 Encounter Details Date Type Department Care Team (Late st Contact Info) Description 06/19/2024 Refill Cardiology, [facility] [address] [place] [address] Paula Hicks PA-C [address] [place] [address] Paroxysmal atrial fibrillation (HCC); PVC (premature ventricular contraction); Essential hypertension with goal blood pressure less than 130/80 Allergies Active Allergy Reactions Criticality Noted Date Comments Methylprednisolone High 12/03/2021 Other Reaction(s): USED WHEN HAD POSION RAZ AND BROKE OUT IN HIVES documented as of this encounter (statuses as of 06/19/2024) Medications latanoprost (XALATAN) 0.005 % ophthalmic solution Instill 1 Drop into both eyes at bedtime. 12/23/19 19 Active Magnesium Oxide 400 MG Oral Capsule Take by mouth 1 Capsule in the morning. 90 Capsule 3 02/24/20 22 Active Vitamin D3 25 MCG (1000 UT) Oral Capsule Take by mouth 1 Capsule in the morning. 90 Capsule 3 02/24/20 22 Active Cefuroxime Axetil 250 MG Oral Tablet (Ceftin)Indicati ons:Urinary frequency Take 1 Tablet by mouth in the morning and 1 Tablet before bedtime. 14 Tablet 07/16/19 24 Active Additional Information Patient not taking.Reported on 07/22/2023 Losartan Potassium 25 MG Oral Tablet (Cozaar)Indicati ons:Essential hypertension with goal blood pressure less than 130/80 Take 1 Tablet by mouth in the morning. 90 Tablet 2 11/24/19 24 Active Apixaban 5 MG Oral Tablet (Eliquis)Indicat [...] morning. 90 Tablet 3 03/17/20 24 Active Metoprolol Succinate ER 50 MG Oral Tablet Extended Release 24 Hour (toPROL XL)Indications:P aroxysmal atrial fibrillation (HCC),PVC (premature ventricular contraction),Ess ential hypertension with goal blood pressure less than 130/80 Take 1.5 Tablets by mouth in the morning. 135 Tablet 3 06/19/19 25 Active Metoprolol Succinate ER 50 MG Oral Tablet Extended Release 24 Hour (toPROL XL)Indications:P aroxysmal atrial fibrillation (HCC),PVC (premature ventricular contraction),Ess ential hypertension with goal blood pressure less than 130/80 Take 1.5 Tablets by mouth in the morning. 135 Tablet 3 04/30/20 23 025 Discontin ued(Refil l) documented as of this encounter (statuses as of 06/19/2024) Active Problems Problem Noted Date Diagnosed Date [...] as of this encounter (statuses as of 06/19/2024) Resolved Problems Problem Noted Date Diagnosed Date Resolved Date Persistent hypoactive deliri 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/2021): Post TNK administration documented as of this encounter (statuses as of 06/19/2024) Immunizations Name Administration Dates Next Due COVID-19 [...] encounter Miscellaneous Notes * Telephone Encounter - Paula Hicks PA-C - 06/19/2024 12:36 PM ESTSigned Prescriptions: Disp Refills Metoprolol Succinate ER 50 MG Oral Tablet *135 Ta*3 Sig: Take 1.5 Tablets by mouth in the morning. Authorizing Provider: PAULA HICKS * Telephone Encounter - Demetria Marrero, pattern puncher - 06/19/2024 11:30 AM EST Patient is up to date for office visits. Pending Prescriptions: Disp Refills Metoprolol Succinate ER 50 MG Oral Tablet*135 Ta*3 Sig: Take 1.5 Tablets by mouth in the morning. Last Visit: 07/22/2023 (in office), Visit date not found (telemedicine) Next Visit: 07/23/2024 If no future appointments scheduled, and last appointment is greater than a year ago, please schedule patient for a follow-up appointment Last date the medication was ordered: 04/30/23 Pharmacy: [facility] [facility] [place] Is this request for a controlled substance?No it is not controlled. Urine Drug Screen:No results found for this or any previous visit. Patient Phone Numbers Labs: Lab Results Component [...] 07/23/2024 3:00 PM EST Office Visit Cardiology, [facility] [address] [place] [address] Viola Stewart CRNP [address] [place] [address] 09/18/2024 1:20 PM EDT Office Visit [facility] Ana Barney [address] [place] [phone] Jenna Acosta MD [address] [place] [address] Health Maintenance Due Date Last Done Comments [...] encounter Visit Diagnoses Diagnosis Paroxysmal atrial fibrillation (HCC) Atrial fibrillation PVC (premature ventricular contraction) Other premature beats Essential hypertension with goal blood pressure less than 130/80 documented in this encounter Advance Directives Documents on File Type Date Recorded Patient Machine Tank Operator Expl anation Advance Directives and Living Will 11/16/2022 Janey Vogel ADVANCE DIRECTIVE / LIVING WILL Power of Interlocker Maintainer 11/16/2022 POWER OF A TTORNEY Power of Interlocker Maintainer 06/15/2018 POWER OF A TTORNEY POWER OF [...] Ag ent (per Health Care Power of Interlocker Maintainer document) [email or web address] Care Teams Loan Secretary Relationship Specialty Start Date End Date Jenna Acosta MD PCP - General Family Medicine 11/27/21 documented as of this encounter
--- OUTSIDE RECORDS SUMMARY | 2024-09-29 12:06 | External Medical Summary | Summary of Care ---
Author Name Unknown Organization [facility] Address [address] [facility] [address] Phone [phone] Care Team Providers Care Commercial Intern Name Role Phone Jenna Acosta MD Primary Care Provid er Reason for Visit * Reason Onset Date Comments Scheduling 08/14/2024 Encounter Details Date Type Department Care Team (Late st Contact Info) Description 08/14/2024 Telephone [facility] [address] [place] [phone] Jenna Acosta MD [address] [place] [address] Scheduling Allergies Active Allergy Reactions Criticality Noted Date Comments Methylprednisolone High 12/03/2021 Other Reaction(s): USED WHEN HAD POSION RAZ AND BROKE OUT IN HIVES documented as of this encounter (statuses as of 08/14/2024) Medications latanoprost (XALATAN) 0.005 % ophthalmic solution [...] as of this encounter (statuses as of 08/14/2024) Active Problems Problem Noted Date Diagnosed Date [...] as of this encounter (statuses as of 08/14/2024) Resolved Problems Problem Noted Date Diagnosed Date Resolved Date Persistent hypoactive deliri 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/2021): Post TNK administration documented as of this encounter (statuses as of 08/14/2024) Immunizations Name Administration Dates Next Due COVID-19 [...] encounter Miscellaneous Notes * Telephone Encounter - Diana Conklin legislative analyst - 08/14/2024 8:14 AM EDT Pt daughter calling to confirm appointment time today. Thank you, Diana Conklin Veterinary Technician Assistant [facility] 08/14/2024,8:15 AM documented in this encounter Plan of Treatment Upcoming Encounters Date Type Department Care Team (Late st Contact Info) Description 08/14/2024 11:45 AM EDT NeuroDiagnostic Study Neurophysiology, [address] [place] [address] [facility], Neurophys Tech [address] [place], [place] [address], [place] [address] 08/17/2024 8:15 AM EDT NeuroDiagnostic Study Neurophysiology, [address] [address] [facility], Neurophys Tech [address] [place] [address], [place] [address] 09/18/2024 1:20 PM EDT Office Visit [facility], [place] Ana Barney [address] [place] [phone] Jenna Acosta MD [address] [facility] [place] [address] 10/23/2024 10:30 AM EDT Office Visit Cardiology, [facility] [address] [place] [phone] Viola Stewart CRNP [address] [place] [id number] Health Maintenance Due Date Last Done Comments [...] Documents on File Type Date Recorded 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
--- NOTE | 2024-09-29 12:29 | History & Physical Report ---
Date of Service September 29, 2024 Assessment & Plan (1) History of seizure: (2) CVA (cerebral vascular accident): Plan: DDX: TIA, CVA, Seizure Patient is 84-year-old female with PMH PAF, HTN, dyslipidemia, prediabetes, ischemic stroke left MCA territory in 2021 received TNK and had subsequent subdural hematoma/left parietoccipital hematoma, has residual expressive aphasia, history seizure, and others listed below presented to ER with c/o concern for stroke like symptoms. Normal state of health at 08:00. 08:30 patient suddenly seemed like she couldn't focus and seemed like she couldn't see in front of her and her verbal responses were slower than baseline and had noted twitching of her right face and eye area. Today in ER Afebrile, P: 58, R: 16, BP 221/114, 96% on room air BP improved to 158/96, HR in 50s BS. no other significant electrolyte abnormality UA unremarkable. Urine drug screen pending CT head: stable old infarctions at the parietal lobes bilaterally with stable ex vacuo dilatation of the posterior left lateral ventricle. There are moderate chronic small vessel ischemic changes. No intracranial hemorrhage seen CTA Head & Neck: 1. 5 mm segment of high-grade stenosis/near occlusion involves the proximal P1 segment of the right posterior cerebral artery which is age indeterminate however is new compared to the 2021 exam. 2. Otherwise unremarkable CTA of the head and neck. Monitor on telemetry Seizure precautions EEG, recommended okay to continue Eliquis results of head CT: MRI brain Echo Aspiration precautions PT/OT consult Continue atorvastatin, Eliquis Neurology consult Had Telestroke neurology eval in ER. No thrombolytics were recommended secondary to prior ICH after receiving thrombolytics and patient is currently on Eliquis. Recommended increasing Keppra to 1000 mg twice daily Patient received IV Keppra 2000mg in ER Increased home Keppra from 750mg BID to 1000mg BID #Lung nodule CT neck noted 1.8 cm spiculated irregular subsolid nodular density of the left lung apex has mildly increased in size from 2021. Will need outpatient CT chest follow up in 6 months (3) Paroxysmal A-fib: Plan: Anticoagulated on Eliquis Continue Eliquis, carvedilol (4) Hypertension: Plan: Continue carvedilol Hold losartan and reassess tomorrow (5) Hyperlipidemia: Plan: Continue atorvastatin #Depression Continue escitalopram DVT Prophylaxis On Eliquis Admit telemetry DNR/DNI as per discussion with pt's daughter Follows with Dr Jenna Acosta for routine care Pt was seen and care coordinated with Dr Christianson. See addendum I spent a total of 68 minutes reviewing notes, outpatient records, labs, medication, coordinating, documenting and providing care for this patient excluding time spent in the performance of separately billed services and excluding time spent by another provider/QHP. History of Present Illness Chief Complaint: concern for stroke symptoms Primary Care Provider: Jenna Acosta MD Patient is 84-year-old female with PMH PAF, HTN, dyslipidemia, prediabetes, ischemic stroke left MCA territory in 2021 received TNK and had subsequent subdural hematoma/left parietoccipital hematoma, has residual expressive aphasia, history seizure, and others listed below presented to ER with c/o concern for stroke like symptoms. History obtained from daughter and outpatient chart review. Per daughter at 8:00am this morning patient at baseline. Daughter showered patient and at 8:30am patient took her medicine and was getting her cer eal. Daughter states patient suddenly seemed like she couldn't focus and seemed like she couldn't see in front of her or see the cereal bowl and was looking off to the right side. During that time she was awake and was talking and states her responses were slower and needed asked multiple times for her answer but when she would answer it was mostly appropriate and per her baseline per daughter. Sh e states that she noticed some "twitching of her right face and eye area". Per chart review patient was admitted at [facility] in June 2024 due to a witnessed seizure described as 30-60 seconds of generalized tonic-clonic seizure-like activity with rolling of the eyes and foaming of the mouth and was confused for approximately 30 minutes after the episode. At that time reported that CT of the head showed an acute on subacute pontine infarct and MRI of the brain reported to be negative for an acute infarct or hemorrhage. EEG reportedly demonstrate abnormal electrical activity from the left hemisphere Daughter denies any noted recurrent tonic clonic like seizures since 06/2024 and reports patient is taking her Keppra as prescribed. Reports has followed with neurology, Dr. Virk and Daughter reports patient completed the 72 hour ambulatory EEG a couple of weeks ago, but haven't been given the results yet. Daughter reports patient has had progressive decline over past couple of months and not completing her ADLs and needing assistance. She reports she has chronic urinary incontinence and uses depends. Denies any recent falls. Denies use of cane or walker. Daughter denies noted fever/chills, diaphoresis, N/V/D/C, cough, rhinorrhea. Denies patient recently complaining of GRAHAM, dizziness, CP, SOB. In ER, ER physician said noted eye blinking/twitching and right facial twitching which has improved during ER course. Daughter states that during ER course patient appears back to her baseline with baseline expressive aphasia. Allergies Allergy/AdvReac Type Severity Reaction Status Date / Time methylprednisolone Allergy Intermediate USED WHEN Verified 06/19/22 15:05 HAD POSION RAZ AND BROKE OUT IN HIVES Home Medications Medication Instructions Recorded Confirmed Type latanoprost 0.005 % eye drops 1 drp OPB HS 12/03/21 09/29/24 History magnesium oxide 400 mg PO DAILY 12/03/21 09/29/24 History acetaminophen 325 mg tablet 650 mg PO Q4 PRN Pain 01/09/22 09/29/24 History atorvastatin 40 mg tablet 40 mg PO QDD 01/09/22 09/29/24 History cholecalciferol (vitamin D3) 25 25 mcg PO DAILY 01/09/22 09/29/24 History mcg (1,000 unit) tablet (Vitamin D3) apixaban 5 mg tablet (Eliquis) 5 mg PO BID 30 days #60 tabs 01/13/22 09/29/24 Rx carvedilol 3.125 mg tablet 3.125 mg PO BID 09/29/24 09/29/24 History escitalopram oxalate 10 mg tablet 10 mg PO DAILY 09/29/24 09/29/24 History levetiracetam 500 mg tablet 750 mg PO BID 09/29/24 09/29/24 History losartan 50 mg tablet 50 mg PO DAILY 09/29/24 09/29/24 History Past Med/Surg History Problem List History of seizure Chronic anticoagulation (Acute) Acute UTI (urinary tract infection) (Acute) Episode of confusion Paroxysmal A-fib Change in mental status (Acute) Hyperlipidemia Prediabetes Aphasia (Acute) Hypertension (Acute) CVA (cerebral vascular accident) Hypertension Cerebrovascular accident (Acute) Aphasia (Acute) Medical History Acute metabolic encephalopathy Hx of Clostridium difficile infection Family History Other Family history non-contributory Social History (Updated 09/29/24 @ 17:50 by Shi Estrada PA-C) Smoking Status: Never smoker Hx Alcohol Use: No Hx Substance Use: No Preferred Language: Luxembourger Communication Ability: Impaired Communication Ability Comment: confused Digital Publishing Specialist Required: No Beliefs That Will Affect Care: None marital status: Current Living Situation: Family Feels Safe at Home: Yes Assistive Devices: Glasses and Hearing Aid - Bilateral Review of Systems Review of Systems: All systems reviewed & are unremarkable except as noted in HPI & below Physical Exam Physical Exam: General: no distress, obese elderly female Head: normocephalic, atraumatic Eyes: PERRL, EOM's intact appear intact, conjunctiva non-injected, anicteric ENT: normal inspection external ears, nose, mucous membranes moist Neck: supple, trachea midline Lungs: clear, no respiratory distress, no wheezing/rhonchi/rales CV: RRR, no murmur, no pretibial edema Abd: normal BS, soft, non-tender to palpation Ext: no cyanosis, no apparent calf tenderness Neuro: Alert. +expressive aphasia. Patient states name is "Radha" and Daughter reports "Radha" is pt's sister name and she often will say her sisters name instead of her own and this is baseline for pt. Patient unable to say location or date. +Hard of hearing. Needs things repeated multiple times and then will follow commands. visual medina appear intact and able to correctly identify number of fingers. No nystagmus noted. face is symmetric. No noted eye blinking or facial fasciculations. Tongue is midline, normal movement, no fasciculations. Strength 4/5 bilateral upper and lower extremities. Skin: warm, dry Results & Data Results & Data Vital Signs (Past 12 Hours) Vital Signs Temp Pulse Pulse Resp BP BP Pulse Ox 09/29/24 11:42 54 L 17 153/77 H 96 09/29/24 11:15 52 L 16 158/96 H 94 09/29/24 11:00 52 L 19 183/95 H 95 09/29/24 11:00 56 L 22 183/95 H 97 09/29/24 10:46 219/111 H 09/29/24 10:42 58 L 15 98 09/29/24 10:39 57 L 13 09/29/24 10:32 197/110 H 09/29/24 10:18 53 L 16 96 09/29/24 10:14 192/124 H 09/29/24 10:02 186/131 H 09/29/24 10:01 57 L 09/29/24 09:58 36.8 C 58 L 16 221/114 H 96 O2 Del Method 09/29/24 11:42 Room Air 09/29/24 11:15 Room Air 09/29/24 11:00 Room Air 09/29/24 11:00 Room Air 09/29/24 10:46 09/29/24 10:42 09/29/24 10:39 09/29/24 10:32 09/29/24 10:18 09/29/24 10:14 09/29/24 10:02 09/29/24 10:01 09/29/24 09:58 Room Air Laboratory Results Short CBC 09/29/24 Range/Units 10:03 WBC 5.76 (4.8-10.8) K/ul Hgb 11.9 L (12.0-16.0) g/dl Hct 36.0 L (37.0-47.0) % Plt Count 162 (130-400) K/uL BMP 09/29/24 10:03 Sodium 137 Potassium 4.1 Chloride 105 Carbon Dioxide 30 BUN 14 Creatinine 0.80 Glucose 113 H Calcium 8.6 Liver Function 09/29/24 Range/Units 10:03 Total Bilirubin 0.7 (0.2-1.0) mg/dl AST 21 (13-39) U/L ALT 19 (7-52) U/L Alkaline Phosphatase 96 (34-104) U/L Albumin 3.2 L (3.4-5.0) gm/dl Urine 09/29/24 Range/Units 11:42 Urine Color Yellow Urine Appearance Clear (Clear) Urine pH 7.5 (4.5-7.5) Ur Specific [place] 1.025 (1.000-1.030) Urine Protein Negative (Negative) Urine Glucose (UA) Negative (Negative) Diagnostic Findings Chest X-Ray 09/29/24 09:29 XR chest 1V portable CLINICAL HISTORY: neuro deficit, acute stroke suspected COMPARISON STUDY: 01/09/2022 FINDINGS: There is mild cardiomegaly without pulmonary vascular congestion. No effusion, consolidation, or pneumothorax. IMPRESSION: No acute findings. ACT 112: Negative or not required by law. Electronically signed by: Rancho Solorzano M.D. 09/29/2024 10:[address] 09/29/24 09:29 CT head/brain wo con CLINICAL HISTORY: neuro deficit, acute stroke suspected. TECHNIQUE: Multiple axial CT images of the head were obtained without contrast. A dose lowering technique was utilized adhering to the principles of ALARA. CT DOSE: 1014 COMPARISON: 06/19/2022 FINDINGS: There are stable old infarctions at the parietal lobes bilaterally with stable ex vacuo dilatation of the posterior left lateral ventricle. There are moderate chronic small vessel ischemic changes. No intracranial hemorrhage seen. No mass effect or midline shift. No skull fracture. IMPRESSION: No acute findings. ACT 112: Negative or not required by law. The above report was generated using voice recognition software. It may contain grammatical, syntax or spelling errors. Electronically signed by: Rancho Solorzano M.D. 09/29/2024 10:17 AM Head CTA 09/29/24 09:29 CT angio head w con, CT angio neck with con CLINICAL HISTORY: 84 years-old Female with neuro deficit, acute stroke suspected. Acute strokelike symptoms COMPARISON STUDY: Head CT same day and also 06/19/2022, CTA head and neck 12/03/2021 TECHNIQUE: Following the IV administration of 120 cc of Optiray, CT angiogram of the head and neck was performed from the aortic arch to the skull apex. Images are reviewed in the axial, sagittal, and coronal planes. 3-D MIPS images are created and assessed. IV contrast was administered without complication. All measurements were obtained according to NASCET criteria. A dose lowering technique was utilized adhering to the principles of ALARA. CT DOSE: 1014.69 mGy.cm FINDINGS: CT BRAIN: Dictated separately. Involutional changes with chronic microvascular ischemic disease. Encephalomalacia redemonstrated related to chronic bilateral cerebral infarcts. Ex vacuo ventriculomegaly of the left lateral ventricle. CT ANGIOGRAM OF THE HEAD AND NECK: Three-vessel morphology of the thoracic aortic arch. There is patency of the innominate and image subclavian arteries. The common carotid arteries are widely patent. There is tortuosity involving the distal cervical segments of the patent internal carotid arteries. The bilateral anterior and middle cerebral arteries are also patent. Dominant left vertebral artery is widely patent. The right vertebral artery is also patent. Patent basilar and left posterior cerebral arteries. There is a 5 mm segment of high-grade stenosis involving the proximal P1 segment of the right posterior cerebral artery with near occlusion, image 136 series 6 which is new from the prior study. Flow is noted within the distal aspects of the right posterior cerebral artery. There is no aneurysm, or dissection identified. Dural sinuses appear patent. 7 mm left upper lobe solid nodule on image 2 series 7 is stable from prior compatible with benign etiology. Spiculated and irregular and subsolid nodule within the apical posterior segment left upper lobe on image 73 measures 1.8 x 1.1 cm, previously 1.3 cm. Degenerative changes of the spine. Thyroid goiter. IMPRESSION: 1. 5 mm segment of high-grade stenosis/near occlusion involves the proximal P1 segment of the right posterior cerebral artery which is age indeterminate however is new compared to the 2022 exam. 2. Otherwise unremarkable CTA of the head and neck. 3. Please refer to the same day head CT for additional findings. 4. 1.8 cm spiculated irregular subsolid nodular density of the left lung apex has mildly increased in size from 2022. Differential considerations include a slowly growing adenomatous lesion versus fibrotic scarring. Six-month follow-up chest CT recommended. ACT 112: Negative or not required by law. The above report was generated using voice recognition software. It may contain grammatical, syntax or spelling errors. Electronically signed by: Arash To M.D. 09/29/2024 10:14 AM Neck CTA 09/29/24 09:29 CT angio head w con, CT angio neck with con CLINICAL HISTORY: 84 years-old Female with neuro deficit, acute stroke suspected. Acute strokelike symptoms COMPARISON STUDY: Head CT same day and also 06/19/2022, CTA head and neck 12/03/2021 TECHNIQUE: Following the IV administration of 120 cc of Optiray, CT angiogram of the head and neck was performed from the aortic arch to the skull apex. Images are reviewed in the axial, sagittal, and coronal planes. 3-D MIPS images are created and assessed. IV contrast was administered without complication. All measurements were obtained according to NASCET criteria. A dose lowering technique was utilized adhering to the principles of ALARA. CT DOSE: 1014.69 mGy.cm FINDINGS: CT BRAIN: Dictated separately. Involutional changes with chronic microvascular ischemic disease. Encephalomalacia redemonstrated related to chronic bilateral cerebral infarcts. Ex vacuo ventriculomegaly of the left lateral ventricle. CT ANGIOGRAM OF THE HEAD AND NECK: Three-vessel morphology of the thoracic aortic arch. There is patency of the innominate and image subclavian arteries. The common carotid arteries are widely patent. There is tortuosity involving the distal cervical segments of the patent internal carotid arteries. The bilateral anterior and middle cerebral arteries are also patent. Dominant left vertebral artery is widely patent. The right vertebral artery is also patent. Patent basilar and left posterior cerebral arteries. There is a 5 mm segment of high-grade stenosis involving the proximal P1 segment of the right posterior cerebral artery with near occlusion, image 136 series 6 which is new from the prior study. Flow is noted within the distal aspects of the right posterior cerebral artery. There is no aneurysm, or dissection identified. Dural sinuses appear patent. 7 mm left upper lobe solid nodule on image 2 series 7 is stable from prior compatible with benign etiology. Spiculated and irregular and subsolid nodule within the apical posterior segment left upper lobe on image 73 measures 1.8 x 1.1 cm, previously 1.3 cm. Degenerative changes of the spine. Thyroid goiter. IMPRESSION: 1. 5 mm segment of high-grade stenosis/near occlusion involves the proximal P1 segment of the right posterior cerebral artery which is age indeterminate however is new compared to the 2022 exam. 2. Otherwise unremarkable CTA of the head and neck. 3. Please refer to the same day head CT for additional findings. 4. 1.8 cm spiculated irregular subsolid nodular density of the left lung apex has mildly increased in size from 2022. Differential considerations include a slowly growing adenomatous lesion versus fibrotic scarring. Six-month follow-up chest CT recommended. ACT 112: Negative or not required by law. The above report was generated using voice recognition software. It may contain grammatical, syntax or spelling errors. Electronically signed by: Arash To M.D. 09/29/2024 10:14 AM Supervising Physician Co-Signing Physician Notes Brought in for concerns for stroke vs seizure as detailed Exam notable for alert and oriented to person only, follows simple commands,+chronic expressive aphasia, no focal deficits in power in extremities Increase keppra to 1000mg bid per tele neuro CTA H/N noted 5mm segment of high grade stenosis/near occlusion involving proximal P1 of Right VALVE TECHNICIAN Neuro c/s MRI brain, EEG, tox screen Continue eliquis Other plans as detailed by Shi Estrada PA-C I spent a total of 35 minutes coordinating, documenting and providing care for this patient excluding time spent in performance of separately billed services
[2024-09-29 13:14] LABS: Phosphorus 3.3 mg/dl (2.5-4.9)
[2024-09-29 13:37] LABS: Amphetamines+Metham, Urine Neg (Neg); Barbiturates, Urine Neg (Neg); Benzodiazepine, Urine Neg (Neg); Cocaine, Urine Neg (Neg); Fentanyl, Urine Neg (Neg); MDMA (Ecstacy), Urine Neg (Neg); Marijuana, Urine Neg (Neg); Methadone, Urine Neg (Neg); Opiate, Urine Neg (Neg); Phencyclidine, Urine Neg (Neg)
[2024-09-29] MEDS ORDERED: LORazepam 2 MG/1 ML VIAL IV PRN (14:23)
[2024-09-29] MEDS ORDERED: PHARMACIST DISCHARGE MED REC CONSULT PRN (14:23)
[2024-09-29] MEDS ORDERED: ONDANSETRON INJ 2 MG/ML 2 ML VIAL IV PRN (14:23)
[2024-09-29] MEDS ORDERED: POLYETHYLENE (MIRALAX) 17 GM PACK PO PRN (14:23)
[2024-09-29] MEDS: Patient's HEIGHT &/or WEIGHT Needed STA ×2 (15:03→15:05)
[2024-09-29] MEDS: ACETAMINOPHEN 325 MG TAB PO PRN (15:35)
[2024-09-29] MEDS: ATORVASTATIN 40 MG TAB PO SCH (16:50)
--- NOTE | 2024-09-29 17:33 | Electrocardiogram Report ---
Test Reason : Blood Pressure : */* mmHG Vent. Rate : 57 BPM Atrial Rate : * BPM P-R Int : * ms QRS Dur : 80 ms QT Int : 488 ms P-R-T Axes : * 17 72 degrees QTcB Int : 474 ms Atrial fibrillation with slow ventricular response Low voltage QRS Abnormal ECG When compared with ECG of 19-Jun-2022 10:00, No significant change was found Confirmed by Skyler Haddad ([id number]) on 09/29/2024 5:33:04 PM Referred By: REFERRED SELF Confirmed By: Skyler Haddad
[2024-09-29] MEDS: APIXABAN 5 MG TABLET PO SCH (22:46)
[2024-09-29] MEDS: carvediloL 3.125 MG TAB PO SCH (22:47)
[2024-09-29] MEDS: LATANOPROST 0.005% OP SOLN 2.5 ML BTL OPB SCH (22:47)
[2024-09-29] MEDS: levETIRAcetam ORAL SOLN 100MG/ML PO SCH (22:48)
--- NOTE | 2024-09-30 00:11 | Magnetic Resonance Report ---
Exam(s): MRI HEAD Without Contrast EXAM: MR Head Without Intravenous Contrast CLINICAL HISTORY: Reason for exam: r/o stroke. TECHNIQUE: Magnetic resonance images of the head/brain without intravenous contrast in multiple planes. Moderate artifact, unable to cooperate, best possible scans. COMPARISON: MRI brain with and without contrast 12/03/21, and head CT, same day. FINDINGS: Brain: Sequelae of previous hemorrhage left temporal lobe, and minimally in the right temporal lobe. Left temporal encephalomalacia. No mass, mass effect or definite/large vessel territory acute infarct. No acute hemorrhage. Mild atrophy and chronic white matter disease. Ventricles: Asymmetric ventriculomegaly, left greater than right. No hydrocephalus or midline shift. Bones/joints: No acute finding. Soft tissues: No scalp hematoma. Visualized Sinuses: Clear. Mastoid air cells: No mastoid effusion. IMPRESSION: 1. Sequelae of previous hemorrhage left temporal lobe and minimally in the right temporal lobe. 2. Atrophy and chronic white matter disease. 3. No definite acute abnormality. 4. Moderate artifact, uncooperative patient. Electronically signed by: Cindy Douglas M.D. 09/30/24 00:10 AM
[2024-09-30 06:47] LABS: Hematocrit (blood only) 37.1 % (37.0-47.0); Hemoglobin 12.6 g/dl (12.0-16.0); Mean Corpuscular Hemoglobin 31.3 pg (25.0-34.0); Mean Corpuscular Volume 92.1 fL (80.0-100.0); Mean Platelet Volume 12.3 fL (9.4-12.4); Platelet Count 177 K/uL (130-400); RDW Coefficient of Variation 12.3 % (11.5-14.5); RDW Standard Deviation 41.9 fL (36.4-46.3); Red Blood Count 4.03 M/uL (4.20-5.40); White Blood Count 7.85 K/ul (4.8-10.8)
[2024-09-30 07:24] LABS: BUN Creatinine Ratio 15.4 (10-20); Calcium 9.1 mg/dl (8.6-10.3); Chol HDL Ratio 2.9 (0-5); Creatinine Clr Calc Pharmacy 63.3 ml/min; Magnesium 1.8 mg/dl (1.7-2.4); Potassium 4.1 mmol/L (3.5-5.1)
[2024-09-30] MEDS: MAGNESIUM OXIDE 400 MG TAB PO SCH (08:11)
[2024-09-30] MEDS: LOSARTAN POTASSIUM 50 MG TAB PO SCH (08:11)
[2024-09-30] MEDS: amLODIPine BESYLATE 5 MG TAB PO SCH (08:11)
[2024-09-30] MEDS: CHOLECALCIFEROL 25 MCG (1000 UNITS) TAB PO SCH (08:12)
[2024-09-30] MEDS: ESCITALOPRAM OXALATE 10 MG TAB PO SCH (08:12)
[2024-09-30 08:59] LABS: Estimated Average Glucose 111 mg/dl; Hemoglobin A1C 5.5 % (4.5-5.6)
[2024-09-30] MEDS ORDERED: LOSARTAN POTASSIUM 50 MG TAB PO SCH (09:00)
--- NOTE | 2024-09-30 12:34 | Neurology Consultation ---
Date of Consultation September 30, 2024 Assessment & Plan (1) History of seizure: Yanci Torres is an 84 yo F presenting with altered mental status, concern for possible seizure given the history and facial twitching. Patients current mental status can otherwise be explained by her post-ictal state and [facility]. No changes on MRI. EEG pending. Agree with increasing the Keppra to provide additional seizure protection. -- Keppra 1000mg BID -- EEG pending -- Continue eliquis -- Neurology follow-up for seizures Telehealth Consultation Telehealth Information Telehealth Information: I performed this visit using a real-time telehealth connection between my location and the patients location ([facility]). After connecting through interactive tele-video, patient was identified by name and date of and/or wristband check.Patient (or authorized healthcare technical services representative) was informed that this was a telemedicine visit and it was being conducted confidentially over secure lines. My office door was closed and no one else was present in the room with me.Patient (or authorized healthcare technical services representative) provided consent to proceed with the visit, expressed an understanding of privacy and security of the telemedicine visit, and gave permission to have a hospital technical services representative in the room in order to assist with the visit and to conduct portions of the visit, as needed. I informed the patient (or authorized healthcare technical services representative) that I reviewed their record and presented the opportunity for them to ask any questions regarding the visit today. The patient agreed to participate. History of Present Illness Reason for Consultation: Altered mental status Requesting Physician: Dr. Suresh Attending Physician: Jaime Suresh, DO History of Present Illness Yanci Torres is an 84 yo F presenting with altered mental status as witnessed by her daughter who cares for her at home. She reports she was staring when at the table with food in front of her, then had difficulty walking to the car, so EMS had to be called. In the ED, R facial twitching was observed. At baseline she is able to walk well and recovered everything but her speech from the hemorrhage she had post TNK. Cognitively she otherwise denies any impairment. Today her mental status has worsened from yesterday and she did not sleep well last night. No further seizure activity noted. Patient is not able to contribute to the history due to her aphasia. Allergies Allergy/AdvReac Type Severity Reaction Status Date / Time methylprednisolone Allergy Intermediate USED WHEN Verified 06/19/22 15:05 HAD POSION RAZ AND BROKE OUT IN HIVES Home Medications Medication Instructions Recorded Confirmed Type latanoprost 0.005 % eye drops 1 drp OPB HS 12/03/21 09/29/24 History magnesium oxide 400 mg PO DAILY 12/03/21 09/29/24 History acetaminophen 325 mg tablet 650 mg PO Q4 PRN Pain 01/09/22 09/29/24 History atorvastatin 40 mg tablet 40 mg PO QDD 01/09/22 09/29/24 History cholecalciferol (vitamin D3) 25 25 mcg PO DAILY 01/09/22 09/29/24 History mcg (1,000 unit) tablet (Vitamin D3) apixaban 5 mg tablet (Eliquis) 5 mg PO BID 30 days #60 tabs 01/13/22 09/29/24 Rx carvedilol 3.125 mg tablet 3.125 mg PO BID 09/29/24 09/29/24 History escitalopram oxalate 10 mg tablet 10 mg PO DAILY 09/29/24 09/29/24 History levetiracetam 500 mg tablet 750 mg PO BID 09/29/24 09/29/24 History losartan 50 mg tablet 50 mg PO DAILY 09/29/24 09/29/24 History Patient History Medical History Acute metabolic encephalopathy Hx of Clostridium difficile infection Family History Other Family history non-contributory Social History (Updated 09/29/24 @ 17:50 by Shi Estrada PA-C) Smoking Status: Never smoker Hx Alcohol Use: No Hx Substance Use: No Preferred Language: Luxembourgish Communication Ability: Impaired Communication Ability Comment: confused Faculty I On Call Medical Assistant Required: No Beliefs That Will Affect Care: None marital status: Current Living Situation: Family Other Information That Helps Us Care for You: No Feels Safe at Home: Yes Safety Concerns: Feels Safe At This Time Assistive Devices: Glasses and Hearing Aid - Bilateral Review of Systems Unable to obtain Results & Data Vital Signs (Past 12 Hours) Vital Signs Temp Pulse Resp BP BP Pulse Ox O2 Del Method 09/30/24 11:39 36.6 C 65 20 175/88 H 93 Room Air 09/30/24 11:10 169/92 H 09/30/24 07:10 36.7 C 72 17 185/100 H 93 Room Air 09/30/24 03:48 36.3 C L 62 18 188/113 H 95 Room Air Laboratory Results Abnormal lab results 09/30/24 Range/Units 06:10 RBC 4.03 L (4.20-5.40) M/uL Glucose 104 H (70-99(Fasting)) mg/dl Diagnostic Findings MRI brain - Unremarkable for acute changes
--- NOTE | 2024-09-30 13:23 | Hospitalist Progress Note ---
Date of Service September 30, 2024 Assessment & Plan (1) Breakthrough seizure: (2) Postictal confusion: (3) Hypertensive encephalopathy: (4) Hypertension, uncontrolled: (5) History of hemorrhagic cerebrovascular accident (CVA) with residual deficit: (6) Paroxysmal A-fib: (7) Chronic anticoagulation: Plan Patient 84-year-old female with known history of previous hemorrhagic stroke in on seizure prevention medications presents to the ED with confusion and symptoms consistent with possible breakthrough seizure and some postictal confusion. Patient also quite hypertensive and potentially having some hypertensive encephalopathy. Patient still not back to baseline and requires additional care in the hospital Patient's blood pressure is improving, losartan dosing increased, amlodipine added for better blood pressure control continue to monitor with these med changes Discussed with neurology agrees with increased dose of Keppra to continue at discharge, no evidence of acute ischemic infarct Case management to coordinate with daughter some home health care Continue other outpatient medications including apixaban for chronic anticoagulation in setting of paroxysmal atrial fibrillation Admission and Anticipated Discharge Date Admission Date: September 29, 2024 Subjective Patient had a good morning reported by nurse. This afternoon daughter at [facility] states that her ambulation is still quite unsteady for her. Does not seem to be quite back to her usual self. Daughter is concerned about delirium associated with the hospitalization. Daughter states that they have not needed any home services up to this point. Patient lives with the daughter. Physical Exam Physical Exam: Constitutional: Alert, no acute distress HEENT: Mucous membranes moist. Lungs: Clear to auscultation, decreased, no wheezes rales or rhonchi CV: S1-S2, regular Abdomen: Soft, nontender, nondistended Extremities: No significant edema Neuro: Aphasia from previous stroke, unsteady gait Psych: Intermittently confused, short-term memory issues Results & Data Results & Data Vital Signs (Past 12 Hours) Vital Signs Temp Pulse Resp BP BP Pulse Ox O2 Del Method 09/30/24 11:39 36.6 C 65 20 175/88 H 93 Room Air 09/30/24 11:10 169/92 H 09/30/24 07:10 36.7 C 72 17 185/100 H 93 Room Air 09/30/24 03:48 36.3 C L 62 18 188/113 H 95 Room Air Diagnostic Findings Reviewed imaging, laboratory and diagnostic studies. Pertinent findings as below. CBC stable Electrolytes within normal range Creatinine 0.78 Lipid panel reviewed MRI of the brain showed evidence of previous left temporal lobe hemorrhage, chronic white matter disease, no acute infarct
--- NOTE | 2024-09-30 14:14 | Electrocardiogram Report ---
Test Reason : Blood Pressure : */* mmHG Vent. Rate : 69 BPM Atrial Rate : * BPM P-R Int : * ms QRS Dur : 78 ms QT Int : 440 ms P-R-T Axes : * 6 97 degrees QTcB Int : 471 ms Atrial fibrillation Low voltage QRS Abnormal ECG When compared with ECG of 29-Sep-2024 10:13, No significant change was found Confirmed by Skyler Haddad ([id number]) on 09/30/2024 2:13:58 PM Referred By: REFERRED SELF Confirmed By: Skyler Haddad
[2024-10-01] MEDS: amLODIPine BESYLATE 5 MG TAB PO SCH (08:41)
[2024-10-01 15:10] LABS: iSTAT Hemoglobin 11.9 g/dl (12.0-16.0); iSTAT Ionized Calcium 1.12 mmol/l (1.12-1.32); iSTAT Potassium 4.2 mmol/L (3.3-5.0)
--- NOTE | 2024-10-01 15:37 | Hospitalist Progress Note ---
Date of Service October 01, 2024 Assessment & Plan (1) Breakthrough seizure: (2) Postictal confusion: (3) Hypertensive encephalopathy: (4) Hypertension, uncontrolled: (5) History of hemorrhagic cerebrovascular accident (CVA) with residual deficit: (6) Paroxysmal A-fib: (7) Chronic anticoagulation: (8) Delirium due to another medical condition: Plan Patient's mental status and confusion and ability to ambulate and care for herself is fluctuating. This is most likely a component of acute delirium and encephalopathy on chronic disabilities associated with her previous hemorrhagic stroke. Patient has had breakthrough seizure, some postictal confusion, sleep deprivation here in the hospital, unusual routine here in the hospital, unusual setting and people caring for her in the hospital all contributing to her waxing and waning of the mental status. Phone conversation with neurology, reviewed patient's clinical situation, agrees with above assessment Phone conversation with patient's daughter this afternoon explaining to her this is may be somewhat of a new baseline that may improve with some time. She does believe the patient will do much better at home, however, with her limited ability to ambulate at this time not quite prepared to take her home tonight. N eeds to make some further arrangements and possibly way need transportation services. Did speak with the son at the bedside earlier this morning and explained to him similar situation. Communication with case management they have arranged home health care, have gotten the patient a wheelchair. Ultimately conversation with patient's daughter is that we will plan to coordinate discharge home tomorrow, may need wheelchair transport. Admission and Anticipated Discharge Date Admission Date: September 29, 2024 Subjective Patient's mental status fluctuating throughout the day Physical Exam Physical Exam: Constitutional: Awake, intermittently responsive HEENT: Mucous membranes moist. Lungs: Clear to auscultation, decreased, no wheezes rales or rhonchi CV: S1-S2, regular Abdomen: Soft, nontender, nondistended Extremities: No significant edema Neuro: Chronic deficits from previous stroke, aphasia Psych: Flat affect Results & Data Results & Data Vital Signs (Past 12 Hours) Vital Signs Temp Pulse Pulse Resp BP BP Pulse Ox 10/01/24 14:39 36.1 C L 66 17 128/76 95 10/01/24 10:48 36.5 C 68 17 159/89 H 94 10/01/24 07:51 37.2 C 77 18 183/121 H 94 10/01/24 05:44 82 O2 Del Method 10/01/24 14:39 Room Air 10/01/24 10:48 Room Air 10/01/24 07:51 Room Air 10/01/24 05:44 Diagnostic Findings Reviewed therapy notes
[2024-10-01 22:07] VITALS: RESP 18
[2024-10-01] MEDS: MELATONIN 3 MG TAB PO SCH (22:27)
[2024-10-02 07:35] VITALS: PULSE 67; TEMP 97.3; O2SAT 96
--- NOTE | 2024-10-02 10:30 | Discharge Summary ---
Discharge Summary Date of Service October 02, 2024 Principal Dx & Hospital Course #1 = Principal Diagnosis (1) Breakthrough seizure: (2) Postictal confusion: (3) Hypertensive encephalopathy: (4) Hypertension, uncontrolled: (5) History of hemorrhagic cerebrovascular accident (CVA) with residual deficit: (6) Paroxysmal A-fib: (7) Chronic anticoagulation: (8) Delirium due to another medical condition: Plan Patient 84-year-old female with known history of previous hemorrhagic CVA with residual expressive aphasia and seizures. Patient presented to emergency room with increased confusion and possibly seizure activity which was described as her staring off to the right side and some twitching around her right face. Evaluation in the emergency room was negative for acute changes. Patient was admitted to the hospital for further evaluation. Patient underwent MRI of the brain which showed chronic changes but no acute infarction. Patient was also noted to be quite hypertensive, amlodipine was added to her regimen for blood pressure control and her losartan dose was increased. Neurology consultation was obtained. They reviewed her images and recommended the continuing the increased dose of Keppra. Patient seemed to be slow to recover to her baseline mental status and abilities. Patient was seen by therapies and case management. Family was committed to taking the patient home. We coordinated home health care for them. We coordinated the family have a wheelchair for the patient and they also are getting some other assistive devices such as a bedside commode for at home. It seems as though during her hospitalization her mentation would wax and wane. Family reports that it is very common when she has been in the hospital before she has become more delirious and confused with due to her sleep deprivation in the hospital, change in environment, change in caretakers. They report that she always does much better when she returns home. They are committed to taking her home. On the morning of discharge blood pressure had significantly improved. She was awake she did eat her breakfast she did take her medications. Again family was committed to taking her home and will coordinate ongoing care with the assistance of home services. She will follow- up with her PCP and neurology outpatient. Notes For Next Care Provider Suspect patient will continue to have issues with altered mental status intermittently. Follow-up with outpatient specialist as coordinated Medication Changes From Visit Keppra dose increased for breakthrough seizure Amlodipine added for blood pressure control Losartan dose increased for blood pressure control Admission HPI Per Admitting Provider Patient is 84-year-old female with PMH PAF, HTN, dyslipidemia, prediabetes, ischemic stroke left MCA territory in 2021 received TNK and had subsequent subdural hematoma/left parietoccipital hematoma, has residual expressive aphasia, history seizure, and others listed below presented to ER with c/o concern for stroke like symptoms. History obtained from daughter and outpatient chart review. Per daughter at 8:00am this morning patient at baseline. Daughter showered patient and at 8:30am patient took her medicine and was getting her cereal. Daughter states patient suddenly seemed like she couldn't focus and seemed like she couldn't see in front of her or see the cereal bowl and was looking off to the right side. During that time she was awake and was talking and states her responses were slower and needed asked multiple times for her answer but when she would answer it was mostly appropriate and per her baseline per daughter. She states that she noticed some "twitching of her right face and eye area". Per chart review patient was admitted at [facility] in June 2024 due to a witnessed seizure described as 30-60 seconds of generalized tonic-clonic seizure-like activity with rolling of the eyes and foaming of the mouth and was confused for approximately 30 minutes after the episode. At that time reported that CT of the head showed an acute on subacute pontine infarct and MRI of the brain reported to be negative for an acute infarct or hemorrhage. EEG reportedly demonstrate abnormal electrical activity from the left hemisphere Daughter denies any noted recurrent tonic clonic like seizures since 06/2024 and reports patient is taking her Keppra as prescribed. Reports has followed with neurology, Dr. Virk and Daughter reports patient completed the 72 hour ambulatory EEG a couple of weeks ago, but haven't been given the results yet. Daughter reports patient has had progressive decline over past couple of months and not completing her ADLs and needing assistance. She reports she has chronic urinary incontinence and uses depends. Denies any recent falls. Denies use of cane or walker. Daughter denies noted fever/chills, diaphoresis, N/V/D/C, cough, rhinorrhea. Denies patient recently complaining of GRAHAM, dizziness, CP, SOB. In ER, ER physician said noted eye blinking/twitching and right facial twitching which has improved during ER course. Daughter states that during ER course patient appears back to her baseline with baseline expressive aphasia. Admission Exam Per Admitting Provider See H&P Discharge Exam Constitutional: Alert HEENT: Mucous membranes moist. Lungs: Clear to auscultation, decreased, no wheezes rales or rhonchi CV: S1-S2, regular Abdomen: Soft, nontender, nondistended Extremities: No significant edema Neuro: Chronic aphasia from previous stroke, generally weak Psych: Poor memory Updated Medication List Medication Instructions Recorded Confirmed Type latanoprost 0.005 % eye drops 1 drp OPB HS 12/03/21 09/29/24 History magnesium oxide 400 mg PO DAILY 12/03/21 09/29/24 History acetaminophen 325 mg tablet 650 mg PO Q4 PRN Pain 01/09/22 09/29/24 History atorvastatin 40 mg tablet 40 mg PO QDD 01/09/22 09/29/24 History cholecalciferol (vitamin D3) 25 25 mcg PO DAILY 01/09/22 09/29/24 History mcg (1,000 unit) tablet (Vitamin D3) apixaban 5 mg tablet (Eliquis) 5 mg PO BID 30 days #60 tabs 01/13/22 09/29/24 Rx carvedilol 3.125 mg tablet 3.125 mg PO BID 09/29/24 09/29/24 History escitalopram oxalate 10 mg tablet 10 mg PO DAILY 09/29/24 09/29/24 History losartan 50 mg tablet 50 mg PO DAILY 09/29/24 09/29/24 History amlodipine 10 mg tablet 10 mg PO DAILY #30 tabs 10/01/24 Rx losartan 100 mg tablet (Cozaar) 100 mg PO DAILY #30 tabs 10/01/24 Rx levetiracetam 100 mg/mL oral 1,000 mg (10 mL) PO BID 30 days 10/02/24 Rx solution (Keppra) #600 mL Hospital Stay Data Consultations 09/29/24 12:17 ED Decision to Admit Stat 09/29/24 14:23 Consult Neurology Routine Diagnostic Imagining Performed 09/29/24 09:29 CT angio head w con Stat CT angio neck with con Stat CT head/brain wo con Stat 09/29/24 14:23 MR brain seizure wo con Urgent Reviewed imaging, laboratory and diagnostic studies. Pertinent findings as below. MRI of the brain report showed sequela of previous hemorrhagic CVA, significant atrophy and chronic white matter disease, no acute infarction CBC stable Electrolytes within normal range Creatinine 0.78 Triglycerides 97 Cholesterol 141 LDL 73 HDL 49 Urinalysis unremarkable Urine drug screen negative Reviewed imaging, laboratory and diagnostic studies. Pertinent findings as below. Pending Results Patient Have Any Pending Studies at Discharge: No Discharge Instructions Given to Patient (Per Discharging Provider) Follow-up with neurology as scheduled Continue to work with home health care and home therapies Anticipate patient may have intermittent bouts of better and worse cognition and confusion. Continue to work with PCP for blood pressure control Home Health Attestation I certify that this patient is under my care and that I, or a physicians food and beverage assistant working with me, had a face to-face encounter that meets the home health [id number] encounter requirements with this patient. The encounter with the patient was in whole, or in part, for the following medical condition, which is the primary reason for home health care (list medical condition): seizure I certify that, based on my findings, the following services are medically necessary home health services: My clinical findings support the need for the above services because: OT Assess ADL Status and Restore Function w ADLs PT Assessment for Endurance / Balance / Strength PT Eval for Safety and Mobility PT Eval for Safety, Gait Training, Assistive Devices PT Gait and Balance Training, Strengthening and Safety Skilled Nsg Assessment Further, I certify that my clinical findings support that this patient is homebound (i.e. absences from home require considerable and taxing effort and are for medical reasons or holiness services or infrequently or of short duration when for other reasons) because: Supportive Aid - Walker Transportation Assistance/Unable to Leave Home Unassisted Certification for Home Health Services: Based on the above findings, I certify that this patient is confined to the home and needs intermittent intermediate care, physical therapy and/or speech therapy or continues to need occupational therapy. The patient is under my care, and I have initiated the establishment of the plan of care. This patient will be followed by a physician who will periodically review the plan of care. Total Time Total Time Spent Total Time Spent (In Minutes): 38
[2024-10-02 11:23] VITALS: BP 128/76
== END 2024-10-02 12:01 | disposition home health service (06) | DRG 101 ==
LOC: ED 09:42 → 2S 12:51 → SUATTDRO 12:51 → 2S 13:56 → 3E 10-01 22:04